=== PATIENT | female | born 1950 | race Hispanic/Latino ===

== ENCOUNTER 2018-01-14 19:25 | Observation (INO) | payer MEDICARE ==
[~2018-01-14] VITALS: Ht 157.5 cm; Wt 82.6 kg
[~2018-01-14 19:25] MED LIST: ASPIR 8181 MG PO; FAMOTIDINE20 MG PO; FLUTICASONE PRO16 GM IH; HUMALOG100 UNIT/1 SQ; HUMALOG100 UNITS/ SQ; HUMULIN N100 UNITS/ SQ; LISINOPRIL-HCT1 EAC6 PO; METOCLOPRAMIDE10 MG PO; PROVENTIL HFA6.7 GM INH; ULTRAM50 MG PO; VITAMIN D-32000 UNIT PO; Z.0.AMLODIPINE BESY1; Z.0.ANTIVERT25 MG PO; Z.0.ATENOLOL50 MG PO; Z.0.HUMALOG100 UNIT/ SQ; Z.0.KLOR-CON 1010 ME PO; Z.0.LANTUS100 UNIT/1; Z.0.NEURONTIN100 MG PO; Z.0.NITROSTAT0.4 MG SL; Z.0.PLAVIX75 MG PO; Z.0.ZOCOR10 MG PO; Z.2.METFORMIN HCL500
--- OUTSIDE RECORDS SUMMARY | 2018-01-14 19:28 | XMS REPORT | Summary of Care ---
Author Organization Unknown Address Unknown Phone Unavailable Encounter [facility](NEHA) [id number] Date(s): 12/28/13 - 12/29/13 [facility] [id number] Jayden Richardson [address] Discharge Disposition: Home Physician Attending: Gustabo Meo MD Physician Admitting: Gustabo Moe MD Reason for Visit CHEST PAIN Vital Signs 1 2 3 Most recent to oldest [Reference Range]: 157.48 cm (12/29/13 12:30 AM) 160.02 cm (12/28/13 8:43 PM) Height 79.545 kg (12/29/13 12:30 AM) Current Weight 98.8 DegF (12/28/13 8:43 PM) Temperature Oral [96.4-99.1 DegF] 145 mmHg *HI* (12/29/13 11:18 AM) 123 mmHg (12/29/13 10:39 AM) 132 mmHg (12/29/13 8:39 AM) Systolic Blood Pressure [90-140 mmHg] 59 mmHg *LOW* (12/29/13 11:18 AM) 49 mmHg *LOW* (12/29/13 10:39 AM) 50 mmHg *LOW* (12/29/13 8:39 AM) Diastolic Blood Pressure [60-90 mmHg] 16 BRMIN (12/29/13 11:18 AM) 17 BRMIN (12/29/13 10:39 AM) 15 BRMIN (12/29/13 8:39 AM) Respiratory Rate [14-20 BRMIN] 60 bpm (12/29/13 6:03 AM) 61 bpm (12/29/13 3:00 AM) 60 bpm (12/29/13 12:35 AM) Peripheral Pulse Rate [60-100 bpm] 79.545 kg (12/28/13 8:43 PM) Weight 31.06 m2 (12/28/13 8:43 PM) Body Mass Index Problem List No data available for this section Allergies, Adverse Reactions, Alerts Substance Reaction Severity Status NKDA Active Medications aspirin 324 mg, 4 tab, Route: PO, Drug form: CHEWTAB, ONCE, Dosing Weight 79.545, kg, Pr iority: STAT, Start date: 12/28/13 20:50:00, Stop date: 12/28/13 20:50:00 Notes: Take with food. Start Date: 12/28/13 Stop Date: 12/28/13 Status: Completed aspirin 81 mg tablet, enteric coated 81 mg=1 tab, PO, Daily Start Date: 12/28/13 Status: Ordered aspirin 81 mg tablet, enteric coated 81 mg, 1 tab, Route: PO, Drug form: ECTAB, Daily, Dosing Weight 79.545, kg, Star t date: 12/29/13 9:00:00, Duration: 30 day, Stop date: 01/27/14 9:00:00 Notes: Do not crush or chew.(Same As: Ecotrin) Start Date: 12/29/13 Stop Date: 12/29/13 Status: Discontinued enoxaparin 40 mg, Route: SUB-Q, Drug form: INJ, [id number], Dosing Weight 79.545, kg, Start d ate: 12/29/13 12:00:00, Duration: 30 day, Stop date: 01/27/14 12:00:00 Start Date: 12/29/13 Stop Date: 12/29/13 Status: Discontinued Humalog Kwik Pen 100 units/mL subcutaneous injection 8 unit, SUB-Q, Breakfast Start Date: 12/28/13 Status: Ordered Humalog Kwik Pen 100 units/mL subcutaneous injection 15 unit, SUB-Q, Dinner Start Date: 12/28/13 Status: Ordered Humalog Kwik Pen 100 units/mL subcutaneous injection 10 unit, SUB-Q, Lunch Start Date: 12/28/13 Status: Ordered hydrochlorothiazide-lisinopril 25 mg-20 mg oral tablet 1 tab, PO, Daily Start Date: 12/28/13 Status: Ordered isosorbide mononitrate 30 mg oral tablet, extended release 30 mg=1 tab, PO, QAM Start Date: 12/28/13 Status: Ordered Klor-Con M10 oral tablet, extended release 10 mEq=1 tab, PO, BID Start Date: 12/28/13 Status: Ordered nitroglycerin 2% ointment 0.5 inch, Route: TOP, Drug Form: OINT, Dosing Weight 79.545, kg, TID, Start date : 12/29/13 6:00:00, Duration: 30 day, Stop date: 01/27/14 18:00:00 Notes: 1 gram is approximately 1 inch of nitroglycerin ointment (20 mg NTG pe r gram) (Same as:Nitro-Bid) Start Date: 12/29/13 Stop Date: 12/29/13 Status: Discontinued nitroglycerin 2% ointment 1 inch, Route: TOP, Drug Form: OINT, Dosing Weight 79.545, kg, ONCE, STAT, Start date: 12/28/13 20:50:00, Stop date: 12/28/13 20:50:00 Notes: 1 gram is approximately 1 inch of nitroglycerin ointment (20 mg NTG pe r gram) (Same as:Nitro-Bid) Start Date: 12/28/13 Stop Date: 12/28/13 Status: Completed Saline Flush 0.9% 10 ml, Route: IVP, Drug Form: INJ, Dosing Weight 79.545, kg, Q12H, Start date: 9:00:00, Duration: 30 day, Stop date: 01/27/14 21:00:00 Notes: (Same as: BD Posiflush) Start Date: 12/29/13 Stop Date: 12/29/13 Status: Discontinued Saline Flush 0.9% 10 ml, Route: IVP, Drug Form: INJ, Dosing Weight 79.545, kg, PRN, PRN Line Flush , Start date: 12/29/13 0:14:00, Duration: 30 day, Stop date: 01/27/14 23:13:00 Notes: (Same as: BD Posiflush) Start Date: 12/29/13 Stop Date: 12/29/13 Status: Discontinued Saline Flush 0.9% 10 mL, Route: IVP, Drug Form: INJ, Dosing Weight 79.545, kg, PRN, PRN Line Flush , Start date: 12/28/13 20:50:00, Duration: 30 day, Stop date: 01/27/14 19:49:00 Notes: Same as: BD Posiflush Sterile Start Date: 12/28/13 Stop Date: 12/29/13 Status: Discontinued SymlinPen 60 subcutaneous solution 60 microgram, SUB-Q, BID-Before Meals, before lunch and dinner Special Instructions: before lunch and dinner Start Date: 12/28/13 Status: Ordered Vitamin D3 2000 intl units oral capsule 2,000 IntlUnit=1 cap, PO, Daily Start Date: 12/28/13 Status: Ordered Results ELECTROLYTES 1 2 3 Most recent to oldest [Reference Range]: 140 mEq/L (12/28/13 9:20 PM) Sodium Lvl [135-145 mEq/L] 3.7 mEq/L (12/28/13 9:20 PM) Potassium Lvl [3.5-5.1 mEq/L] 107 mEq/L (12/28/13 9:20 PM) Chloride Lvl [95-109 mEq/L] 23 mEq/L *LOW* (12/28/13 9:20 PM) CO2 [24-32 mEq/L] 13.7 mEq/L (12/28/13 9:20 PM) AGAP [10.0-20.0 mEq/L] CHEM PANEL 1 2 3 Most recent to oldest [Reference Range]: 1.2 mg/dL (12/28/13 9:20 PM) Creatinine Lvl [0.5-1.4 mg/dL] 48 mL/min/1.73m2 1 *NA* (12/28/13 9:20 PM) eGFR 21 mg/dL (12/28/13 9:20 PM) BUN [7-22 mg/dL] 18 (12/28/13 9:20 PM) B/C Ratio [6-25] 186 mg/dL 2 *HI* (12/28/13 9:20 PM) Glucose Lvl [70-99 mg/dL] 6.8 g/dL (12/28/13 9:20 PM) Total Protein [6.4-8.4 g/dL] 3.3 g/dL *LOW* (12/28/13 9:20 PM) Albumin Lvl [3.5-5.0 g/dL] 3.5 g/dL (12/28/13 9:20 PM) Globulin [2.0-4.0 g/dL] 0.9 (12/28/13 9:20 PM) A/G Ratio [0.7-1.6] 8.4 mg/dL *LOW* (12/28/13 9:20 PM) Calcium Lvl [8.5-10.5 mg/dL] 20 unit/L (12/28/13 9:20 PM) ALT [0-65 unit/L] 14 unit/L (12/28/13 9:20 PM) AST [0-37 unit/L] 56 unit/L (12/28/13 9:20 PM) Alk Phos [39-136 unit/L] 0.2 mg/dL (12/28/13 9:20 PM) Bili Total [0.2-1.3 mg/dL] 1Result Comment: The eGFR is calculated using the CKD-EPI formula. In most young, healthy individuals the eGFR will be >90 mL/min/1.73m2. The eGFR declines with age. An eGFR of 60-89 may be normal in some populations, particularly the elderly, for whom the CKD-EPI formula has not been extensively validated. Use of the eGFR is not recommended in the following populations: Individuals with unstable creatinine concentrations, including patients and those with serious co-morbid conditions. Patients with extremes in muscle mass or diet. The data above are obtained from the National Kidney Disease Education Program ( NKDEP) which additionally recommends that when the eGFR is used in patients with extremes of body mass index for purposes of drug dosing, the eGFR should be mul tiplied by the estimated BMI. 2Interpretive Data: Adult reference range values reflect the clinical guidelines of the [place] [employer]. CARDIAC ENZYMES 1 2 3 Most recent to oldest [Reference Range]: 65 unit/L (12/29/13 10:10 AM) 80 unit/L (12/29/13 3:36 AM) 81 unit/L (12/28/13 9:20 PM) Total CK [12-191 unit/L] 0.6 ng/mL (12/29/13 3:36 AM) 0.7 ng/mL (12/28/13 9:20 PM) CK MB [0.5-3.6 ng/mL] 0.8 (12/29/13 3:36 AM) 0.9 (12/28/13 9:20 PM) CK MB Index [0.0-2.5] <0.02 ng/mL (12/29/13 10:10 AM) <0.02 ng/mL (12/29/13 3:36 AM) <0.02 ng/mL (12/28/13 9:20 PM) Troponin-I [0.00-0.40 ng/mL] HEMATOLOGY 1 2 3 Most recent to oldest [Reference Range]: 8.3 K/CMM (12/28/13 9:20 PM) WBC [3.7-10.4 K/CMM] 3.63 M/CMM *LOW* (12/28/13 9:20 PM) RBC [4.20-5.40 M/CMM] 12.2 g/dL (12/28/13 9:20 PM) Hgb [12.0-16.0 g/dL] 36.0 % (12/28/13 9:20 PM) Hct [36.0-48.0 %] 99.2 fL *HI* (12/28/13 9:20 PM) MCV [80.0-98.0 fL] 33.7 pg *HI* (12/28/13 9:20 PM) MCH [27.0-31.0 pg] 34.0 g/dL (12/28/13 9:20 PM) MCHC [32.0-36.0 g/dL] 12.6 % (12/28/13 9:20 PM) RDW [11.5-14.5 %] 188 K/CMM (12/28/13 9:20 PM) Platelet [133-450 K/CMM] 7.8 fL (12/28/13 9:20 PM) MPV [7.4-10.4 fL] 58.7 % (12/28/13 9:20 PM) Segs [45.0-75.0 %] 28.6 % (12/28/13 9:20 PM) Lymphocytes [20.0-40.0 %] 8.0 % (12/28/13 9:20 PM) Monocytes [2.0-12.0 %] 2.8 % (12/28/13 9:20 PM) Eosinophils [0.0-4.0 %] 1.9 % *HI* (12/28/13 9:20 PM) Basophils [0.0-1.0 %] 4.9 K/CMM (12/28/13 9:20 PM) Segs-Bands # [1.5-8.1 K/CMM] 2.4 K/CMM (12/28/13 9:20 PM) Lymphocytes # [1.0-5.5 K/CMM] 0.7 K/CMM (12/28/13 9:20 PM) Monocytes # [0.0-0.8 K/CMM] 0.2 K/CMM (12/28/13 9:20 PM) Eosinophils # [0.0-0.5 K/CMM] 0.2 K/CMM (12/28/13 9:20 PM) Basophils # [0.0-0.2 K/CMM] 1+ *ABN* (12/28/13 9:20 PM) Macrocyte [None Seen] Clumped (12/28/13 9:20 PM) Plt Morph Medications Administered During Your Visit No data available for this section Immunizations No data available for this section Social History Social History Type Response Assessment and Plan Extracted from: Title: Clinical Document Author: Gustabo Moe MD Date: 12/29/13 Cardiology Note Gustabo Moe MD, PA SUBJECTIVE: REASON FOR HOSPITALIZATION: chest pain HISTORY OF PRESENT ILLNESS: Ms. Romero is a 63-year-old female who is known to me from previous hospitalizations and who presented through the emergency room complaining of sharp chest pain yesterday. It has now resolved. Overnight she had her cardiac enzymes checked and those were negative. At this time, she feels much better. Ms. Romero is known to have coronary artery disease. She had a heart catheterization back in 2004 and then repeated in 2007, and both procedures showed that she had a very complex long 99% narrowing in the distal RCA. In 2004, I recommended medical therapy, but then in 2007 due to recurrent pain, we attempted angioplasty but this was unsuccessful as the lesion was very calcified and complex, and although we successfully wired it, we could not pass a stent. She also was found to have 60% narrowing of the circumflex and 40% narrowing of the LAD and diffuse disease and diagonal. Her ejection fraction was 60%. Medical therapy was recommended based on the above findings and the inability to angioplasty the RCA. The patient did fairly well for the past 6 years from a CAD standpoint and did not require any further coronary interventions. She follows with [facility] and sees a automotive production worker in [place]. She had an endovascular procedure for an aortic or iliac aneurysm few months ago. PAST MEDICAL HISTORY: 1. Coronary artery disease as discussed above. 2. Insulin-dependent diabetes mellitus. 3. Hypercholesterolemia. 4. Hypertension. 5. PAD and stent for aneurysm in iliac or AAA? HOME MEDICATIONS: refer to reconciliation list ALLERGIES: No known drug allergies. SOCIAL HISTORY: The patient does not smoke or drink and does not use recreational drugs. FAMILY HISTORY: Negative for premature coronary disease. REVIEW OF SYSTEMS: Significant for dyspnea on exertion and exertional chest pain. She does take nitroglycerin every now and then, with partial relief. Mild arthralgias. No urologic complaints. No neurologic complaints and no psychiatric problems. Vitals and Temp: VitalsTmp(F)[id number] 12/29 08:39----[id number]--- 12/29 06:03----[id number]--- 12/29 03:00----[id number]--- 12/29 02:30 99--- 12/29 00:35----[id number]--- 24 Hr Tmax: 98.8F (37.11c) at 12/28 20:43Vital Signs are the last 5 in the past 48 hours. Scheduled Meds (4):aspirin (aspirin 81 mg tablet, enteric coated), enoxaparin, nitroglycerin (nitroglycerin 2% ointment), sodium chloride (Saline Flush 0.9%) Unscheduled Meds: None PRN Meds (2):sodium chloride (Saline Flush 0.9%), sodium chloride (Saline Flush 0.9%) One Time Meds (2):(not done) aspirin, (not done) nitroglycerin (nitroglycerin 2% ointment) Continuous Infusions: None Labs (Last four charted values) WBC 8.3(DEC 28) Hgb 12.2(DEC 28) Hct 36.0(DEC 28) Plt 188(DEC 28) Na 140(OCT ) K 3.7(OCT 19) CO2 L 23(DEC 28) Cl 107(DEC 28) Cr 1.2(DEC 28) BUN 21(DEC 28) Glucose Random H 186(DEC 28) Ca L 8.4(OCT ) Troponin <0.02(DEC 20)<0.02(DEC 20)<0.02(DEC 28) CK MB 0.6(DEC 29)0.7(DEC 19) Total CK 65(DEC 29)80(OCT 20)81(DEC 28) EXAM: VITAL SIGNS: Stable. She is in sinus rhythm. HEAD: Normocephalic, atraumatic. Pupils equal and round. NECK: Supple. No jugular venous distention. CHEST: Appears normal. CARDIAC: Regular rhythm. Negative S3. LUNGS: Clear bilaterally. ABDOMEN: Soft. Positive bowel sounds. EXTREMITIES: No clubbing, cyanosis or edema. Pulses palpable. SKIN: Normal. NEUROLOGIC: Nonfocal. PSYCH: Appropriate. ASSESSMENT: Nonrevascularizable CAD with occasional need for NTG. Atypicalo chest pain episode last night and negative cardiac enzymes *3. Benign ECG PLAN: dc home and f/u with your automotive production worker in 1-2 weeks
--- OUTSIDE RECORDS SUMMARY | 2018-01-14 19:28 | XMS REPORT | Summary of Care ---
Author Author [facility] Organization [facility] Address Unknown Phone Unavailable Encounter EDI Shepard(NEHA) [id number] Date(s): 03/20/16 - 03/20/16 [facility] [address] [place] [address]- Discharge Disposition: Home or Self Care Attending Physician: Breezy Hurst MD Admitting Physician: Breezy Hurst MD Vital Signs 1 2 3 Most recent to oldest [Reference Range]: 157.48 cm (03/20/16 2:21 PM) 157.48 cm (03/20/16 9:46 AM) Height 98.4 DegF (03/20/16 2:39 PM) 98.8 DegF (03/20/16 2:07 PM) 98.7 DegF (03/20/16 1:57 PM) Temperature Oral [96.4-99.1 DegF] 124/66 mmHg (03/20/16 2:39 PM) 119/48 mmHg (03/20/16 2:07 PM) 119/48 mmHg (03/20/16 1:57 PM) Blood Pressure [90-140/60-90 mmHg] 18 BRMIN (03/20/16 2:39 PM) 14 BRMIN (03/20/16 2:20 PM) 17 BRMIN (03/20/16 2:07 PM) Respiratory Rate [14-20 BRMIN] 60 bpm (03/20/16 2:39 PM) 71 bpm (03/20/16 2:07 PM) 58 bpm *LOW* (03/20/16 9:46 AM) Peripheral Pulse Rate [60-100 bpm] 81.818 kg (03/20/16 2:21 PM) 81.818 kg (03/20/16 9:46 AM) Weight 32.99 m2 (03/20/16 2:21 PM) 32.99 m2 (03/20/16 9:46 AM) Body Mass Index Problem List Condition Effective Dates Status Health Status Informant Angina(Confirmed) Resolved Diabetes(Confirmed) Resolved Hypertension(Confirm Resolved ed) Allergies, Adverse Reactions, Alerts Substance Reaction Severity Status NKDA Active Medications amLODIPine 10 mg, 2 tab, Route: PO, Drug form: TAB, Daily, Dosing Weight 81.818, kg, Start date: 03/21/16 9:00:00 POWER PRESS OPERATOR, Duration: 30 day, Stop date: 04/19/16 9:00:00 POWER PRESS OPERATOR Notes: (Same as: Norvasc) Start Date: 03/21/16 Stop Date: 03/20/16 Status: Canceled aspirin 325 mg, 1 tab, Route: PO, Drug form: ECTAB, Daily, Dosing Weight 81.818, kg, Sta rt date: 03/21/16 9:00:00 POWER PRESS OPERATOR, Duration: 30 day, Stop date: 04/19/16 9:00:00 POWER PRESS OPERATOR Notes: (Do Not Crush) Do not crush or chew. Start Date: 03/21/16 Stop Date: 03/20/16 Status: Canceled aspirin 324 mg, 4 tab, Route: PO, Drug form: CHEWTAB, ONCE, Dosing Weight 81.818, kg, Pr iority: STAT, Start date: 03/20/16 10:08:00 POWER PRESS OPERATOR, Stop date: 03/20/16 10:08:00 CS T Notes: Take with food. Start Date: 03/20/16 Stop Date: 03/20/16 Status: Completed aspirin 325 mg tablet 325 mg, Route: PO, Drug form: TAB, ONCE, Dosing Weight 81.818, kg, Start date: 0 03/20/16 13:49:00 POWER PRESS OPERATOR, Stop date: 03/20/16 13:49:00 POWER PRESS OPERATOR Start Date: 03/20/16 Stop Date: 03/20/16 Status: Completed atenolol 50 mg, 1 tab, Route: PO, Drug form: TAB, Daily, Dosing Weight 81.818, kg, Start date: 03/21/16 9:00:00 POWER PRESS OPERATOR, Duration: 30 day, Stop date: 04/19/16 9:00:00 POWER PRESS OPERATOR Notes: (Same As:Tenormin) Start Date: 03/21/16 Stop Date: 03/20/16 Status: Canceled hydrochlorothiazide 25 mg oral tablet 25 mg, 1 tab, Route: PO, Drug form: TAB, Daily, Start date: 03/21/16 9:00:00 POWER PRESS OPERATOR , Duration: 30 day, Stop date: 04/19/16 9:00:00 POWER PRESS OPERATOR Notes: (Same as: Hydrodiuril) With food. Start Date: 03/21/16 Stop Date: 03/20/16 Status: Canceled hydrochlorothiazide-lisinopril 25 mg-20 mg oral tablet 1 tab, Route: PO, Drug Form: TAB, Dosing Weight 81.818, kg, Daily, Start date: 0 03/21/16 9:00:00 POWER PRESS OPERATOR, Duration: 30 day, Stop date: 04/19/16 9:00:00 POWER PRESS OPERATOR Start Date: 03/21/16 Stop Date: 03/20/16 Status: Deleted insulin lispro 4 unit, Route: SUB-Q, Drug form: SOLN, Breakfast, Dosing Weight 81.818, kg, Star t date: 03/21/16 8:00:00 POWER PRESS OPERATOR, Duration: 30 day, Stop date: 04/19/16 8:00:00 POWER PRESS OPERATOR Start Date: 03/21/16 Stop Date: 03/20/16 Status: Deleted insulin lispro 6 unit, Route: SUB-Q, Drug form: SOLN, Lunch, Dosing Weight 81.818, kg, Start da te: 03/21/16 12:00:00 POWER PRESS OPERATOR, Duration: 30 day, Stop date: 04/19/16 12:00:00 POWER PRESS OPERATOR Start Date: 03/21/16 Stop Date: 03/20/16 Status: Deleted insulin lispro 8 unit, Route: SUB-Q, Drug form: SOLN, Dinner, Dosing Weight 81.818, kg, Start d ate: 03/20/16 17:00:00 POWER PRESS OPERATOR, Duration: 30 day, Stop date: 04/18/16 17:00:00 POWER PRESS OPERATOR Start Date: 03/20/16 Stop Date: 03/20/16 Status: Deleted isosorbide mononitrate 30 mg, 1 tab, Route: PO, Drug form: ERTAB, QAM, Dosing Weight 81.818, kg, Start date: 03/21/16 9:00:00 POWER PRESS OPERATOR, Duration: 30 day, Stop date: 04/19/16 9:00:00 POWER PRESS OPERATOR Notes: (Same as:Ziyad)"Do Not Crush" Take on empty stomach/ full glass of water . Do not crush Start Date: 03/21/16 Stop Date: 03/20/16 Status: Canceled Lantus 100 units/mL 50 units, SUB-Q, Daily, 0 Refill(s) Start Date: 03/20/16 Status: Ordered Lantus 100 units/mL 40 units, SUB-Q, Bedtime, 0 Refill(s) Start Date: 03/20/16 Status: Ordered Lantus 100 units/mL Route: SUB-Q, Drug form: SOLN, Bedtime, Dosing Weight 81.818, kg, Start date: 21:00:00 POWER PRESS OPERATOR, Duration: 30 day, Stop date: 04/18/16 21:00:00 POWER PRESS OPERATOR Start Date: 03/20/16 Stop Date: 03/20/16 Status: Deleted Lantus 100 units/mL Route: SUB-Q, Drug form: SOLN, Daily, Dosing Weight 81.818, kg, Start date: 03/12 9:00:00 POWER PRESS OPERATOR, Duration: 30 day, Stop date: 04/19/16 9:00:00 POWER PRESS OPERATOR Start Date: 03/21/16 Stop Date: 03/20/16 Status: Deleted Levemir FlexPen 50 unit, 0.5 mL, Route: SUB-Q, Drug form: INJ, QAM, Start date: 03/21/16 9:00:00 POWER PRESS OPERATOR, Duration: 30 day, Stop date: 04/19/16 9:00:00 POWER PRESS OPERATOR Notes: Same as LevemirDo not hold insulin without contacting prescriberWASTE: F/ P - Black; E - Municipal Trash Bin "single patient use only" Start Date: 03/21/16 Stop Date: 03/20/16 Status: Canceled Levemir FlexPen 40 unit, 0.4 mL, Route: SUB-Q, Drug form: INJ, Bedtime, Start date: 03/20/16 21: 00:00 POWER PRESS OPERATOR, Duration: 30 day, Stop date: 04/18/16 21:00:00 POWER PRESS OPERATOR Notes: Same as LevemirDo not hold insulin without contacting prescriberWASTE: F/ P - Black; E - Municipal Trash Bin "single patient use only" Start Date: 03/20/16 Stop Date: 03/20/16 Status: Canceled nitroglycerin 0.4 mg, 1 tab, Route: SL, Drug form: TAB, Q5Min, Dosing Weight 81.818, kg, PRN C hest Pain, Start date: 03/20/16 10:08:00 POWER PRESS OPERATOR, Duration: 3 doses or times, Stop d ate: Limited # of times Notes: (Same as:Nitroquick, Nitrostat)"Do Not Crush" Sublingual tablet Start Date: 03/20/16 Stop Date: 03/20/16 Status: Discontinued nitroglycerin SL Tab 0.4 mg, 1 tab, Route: SL, Drug form: TAB, Q5Min, Dosing Weight 81.818, kg, PRN C hest Pain, Start date: 03/20/16 13:49:00 POWER PRESS OPERATOR, Duration: 3 doses or times, Stop d ate: Limited # of times Notes: (Same as:Nitroquick, Nitrostat)"Do Not Crush" Sublingual tablet Start Date: 03/20/16 Stop Date: 03/20/16 Status: Discontinued NovoLOG FlexPen 6 unit, 0.06 mL, Route: SUB-Q, Drug form: SOLN, Lunch, Start date: 03/21/16 12:0 0:00 POWER PRESS OPERATOR, Duration: 30 day, Stop date: 04/19/16 12:00:00 POWER PRESS OPERATOR Notes: Roll in palms of hands gently; Do not shake vigorously. (Same as: NovoLO G)"single patient use only"WASTE: F/P - Black; E - Municipal Trash Bin Stable f or 28 days at room temperature.Expires in days from Date Start Date: 03/21/16 Stop Date: 03/20/16 Status: Canceled NovoLOG FlexPen 4 unit, 0.04 mL, Route: SUB-Q, Drug form: SOLN, Breakfast, Start date: 03/21/16 8:00:00 POWER PRESS OPERATOR, Duration: 30 day, Stop date: 04/19/16 8:00:00 POWER PRESS OPERATOR Notes: Roll in palms of hands gently; Do not shake vigorously. (Same as: Nori Summers)"single patient use only"WASTE: F/P - Black; E - Municipal Trash Bin Stable f or 28 days at room temperature.Expires in days from Date Start Date: 03/21/16 Stop Date: 03/20/16 Status: Canceled NovoLOG FlexPen 8 unit, 0.08 mL, Route: SUB-Q, Drug form: SOLN, Dinner, Start date: 03/20/16 17: 00:00 POWER PRESS OPERATOR, Duration: 30 day, Stop date: 04/18/16 17:00:00 POWER PRESS OPERATOR Notes: Roll in palms of hands gently; Do not shake vigorously. (Same as: Nori Summers)"single patient use only"WASTE: F/P - Black; E - Municipal Trash Bin Stable f or 28 days at room temperature.Expires in days from Date Start Date: 03/20/16 Stop Date: 03/20/16 Status: Discontinued ondansetron 4 mg, 2 mL, Route: IVP, Drug form: INJ, ONCE, Dosing Weight 81.818, kg, Priority : STAT, Start date: 03/20/16 10:08:00 POWER PRESS OPERATOR, Stop date: 03/20/16 10:08:00 POWER PRESS OPERATOR Notes: (Same as: Micky) MEDICATION WASTE Product Size: 4 mgProduct Was amy: ___ mg Start Date: 03/20/16 Stop Date: 03/20/16 Status: Completed Plavix 75 mg, 1 tab, Route: PO, Drug form: TAB, Daily, Dosing Weight 81.818, kg, Start date: 03/21/16 9:00:00 POWER PRESS OPERATOR, Duration: 30 day, Stop date: 04/19/16 9:00:00 POWER PRESS OPERATOR Notes: (Same As: Plavix) Start Date: 03/21/16 Stop Date: 03/20/16 Status: Canceled potassium chloride 10 mEq, 1 tab, Route: PO, Drug form: ERTAB, BID, Dosing Weight 81.818, kg, Start date: 03/20/16 17:00:00 POWER PRESS OPERATOR, Duration: 30 day, Stop date: 04/19/16 9:00:00 POWER PRESS OPERATOR Notes: (Same as: K-Dur 10)"Do Not Crush" With food and full glass of water Start Date: 03/20/16 Stop Date: 03/20/16 Status: Discontinued Prinivil 20 mg, 1 tab, Route: PO, Drug form: TAB, Daily, Start date: 03/21/16 9:00:00 POWER PRESS OPERATOR , Duration: 30 day, Stop date: 04/19/16 9:00:00 POWER PRESS OPERATOR Notes: (Same as: Prinivil, Zestril) Start Date: 03/21/16 Stop Date: 03/20/16 Status: Canceled Saline Flush 0.9% 10 mL, Route: IVP, Drug Form: INJ, Dosing Weight 81.818, kg, PRN, PRN Line Flush , Start date: 03/20/16 10:08:00 POWER PRESS OPERATOR, Duration: 30 day, Stop date: 04/19/16 10:07 :00 POWER PRESS OPERATOR Notes: (Same as: BD Posiflush) Start Date: 03/20/16 Stop Date: 03/20/16 Status: Discontinued Saline Flush 0.9% 10 ml, Route: IVP, Drug Form: INJ, Dosing Weight 81.818, kg, Q12H, Start date: 0 03/20/16 21:00:00 POWER PRESS OPERATOR, Duration: 30 day, Stop date: 04/19/16 9:00:00 POWER PRESS OPERATOR Notes: (Same as: BD Posiflush) Start Date: 03/20/16 Stop Date: 03/20/16 Status: Canceled Saline Flush 0.9% 10 ml, Route: IVP, Drug Form: INJ, Dosing Weight 81.818, kg, PRN, PRN Line Flush , Start date: 03/20/16 13:49:00 POWER PRESS OPERATOR, Duration: 30 day, Stop date: 04/19/16 13:48 :00 POWER PRESS OPERATOR Notes: (Same as: BD Posiflush) Start Date: 03/20/16 Stop Date: 03/20/16 Status: Discontinued simvastatin 10 mg, 1 tab, Route: PO, Drug form: TAB, Bedtime, Dosing Weight 81.818, kg, Star t date: 03/20/16 21:00:00 POWER PRESS OPERATOR, Duration: 30 day, Stop date: 04/18/16 21:00:00 CS T Notes: (Same as: Zocor) Start Date: 03/20/16 Stop Date: 03/20/16 Status: Canceled Vitamin D3 2,000 IntlUnit, 2 tab, Route: PO, Drug form: TAB, Daily, Dosing Weight 81.818, k g, Start date: 03/21/16 9:00:00 POWER PRESS OPERATOR, Duration: 30 day, Stop date: 04/19/16 9:00: 00 POWER PRESS OPERATOR Notes: Same as : Vitamin D3 Start Date: 03/21/16 Stop Date: 03/20/16 Status: Canceled Results ELECTROLYTES 1 2 3 Most recent to oldest [Reference Range]: 140 mEq/L (03/20/16 10:34 AM) Sodium Lvl [135-145 mEq/L] 3.6 mEq/L (03/20/16 10:34 AM) Potassium Lvl [3.5-5.1 mEq/L] 104 mEq/L (03/20/16 10:34 AM) Chloride Lvl [95-109 mEq/L] 26 mEq/L (03/20/16 10:34 AM) CO2 [24-32 mEq/L] 13.6 mEq/L (03/20/16 10:34 AM) AGAP [10.0-20.0 mEq/L] CHEM PANEL 1 2 3 Most recent to oldest [Reference Range]: 1.40 mg/dL (03/20/16 10:34 AM) Creatinine Lvl [0.50-1.40 mg/dL] 39 mL/min/1.73m2 1 *NA* (03/20/16 10:34 AM) eGFR 27 mg/dL *HI* (03/20/16 10:34 AM) BUN [7-22 mg/dL] 19 (03/20/16 10:34 AM) B/C Ratio [6-25] 107 mg/dL *HI* (03/20/16 10:34 AM) Glucose Lvl [70-99 mg/dL] 7.3 g/dL (03/20/16 10:34 AM) Total Protein [6.4-8.4 g/dL] 3.6 g/dL (03/20/16 10:34 AM) Albumin Lvl [3.5-5.0 g/dL] 3.7 g/dL (03/20/16 10:34 AM) Globulin [2.7-4.2 g/dL] 1.0 (03/20/16 10:34 AM) A/G Ratio [0.7-1.6] 9.3 mg/dL (03/20/16 10:34 AM) Calcium Lvl [8.5-10.5 mg/dL] 24 unit/L (03/20/16 10:34 AM) ALT [0-65 unit/L] 20 unit/L (03/20/16 10:34 AM) AST [0-37 unit/L] 59 unit/L (03/20/16 10:34 AM) Alk Phos [39-136 unit/L] 0.4 mg/dL (03/20/16 10:34 AM) Bili Total [0.2-1.3 mg/dL] 201 unit/L (03/20/16 10:34 AM) Lipase Lvl [73-393 unit/L] 1Result Comment: The eGFR is calculated using [...] be mul tiplied by the estimated BMI. CARDIAC ENZYMES 1 2 3 Most recent to oldest [Reference Range]: 89 unit/L (03/20/16 2:38 PM) 86 unit/L (03/20/16 1:44 PM) 109 unit/L (03/20/16 10:34 AM) Total CK [12-191 unit/L] 0.6 ng/mL (03/20/16 2:38 PM) 0.6 ng/mL (03/20/16 1:44 PM) 0.7 ng/mL (03/20/16 10:34 AM) CK MB [0.5-3.6 ng/mL] 0.7 (03/20/16 2:38 PM) 0.7 (03/20/16 1:44 PM) 0.6 (03/20/16 10:34 AM) CK MB Index [0.0-2.5] <0.02 ng/mL (03/20/16 2:38 PM) <0.02 ng/mL (03/20/16 10:34 AM) Troponin-I [0.00-0.40 ng/mL] HEMATOLOGY 1 2 3 Most recent to oldest [Reference Range]: 8.3 K/CMM (03/20/16 10:34 AM) WBC [3.7-10.4 K/CMM] 3.91 M/CMM *LOW* (03/20/16 10:34 AM) RBC [4.20-5.40 M/CMM] 13.1 g/dL (03/20/16 10:34 AM) Hgb [12.0-16.0 g/dL] 38.0 % (03/20/16 10:34 AM) Hct [36.0-48.0 %] 97.2 fL (03/20/16 10:34 AM) MCV [80.0-98.0 fL] 33.5 pg *HI* (03/20/16 10:34 AM) MCH [27.0-31.0 pg] 34.5 g/dL (03/20/16 10:34 AM) MCHC [32.0-36.0 g/dL] 12.7 % (03/20/16 10:34 AM) RDW [11.5-14.5 %] 248 K/CMM (03/20/16 10:34 AM) Platelet [133-450 K/CMM] 7.6 fL (03/20/16 10:34 AM) MPV [7.4-10.4 fL] 68.1 % (03/20/16 10:34 AM) Segs [45.0-75.0 %] 20.2 % (03/20/16 10:34 AM) Lymphocytes [20.0-40.0 %] 9.0 % (03/20/16 10:34 AM) Monocytes [2.0-12.0 %] 1.8 % (03/20/16 10:34 AM) Eosinophils [0.0-4.0 %] 0.9 % (03/20/16 10:34 AM) Basophils [0.0-1.0 %] 5.7 K/CMM (03/20/16 10:34 AM) Segs-Bands # [1.5-8.1 K/CMM] 1.7 K/CMM (03/20/16 10:34 AM) Lymphocytes # [1.0-5.5 K/CMM] 0.8 K/CMM (03/20/16 10:34 AM) Monocytes # [0.0-0.8 K/CMM] 0.2 K/CMM (03/20/16 10:34 AM) Eosinophils # [0.0-0.5 K/CMM] 0.1 K/CMM (03/20/16 10:34 AM) Basophils # [0.0-0.2 K/CMM] 12.9 seconds (03/20/16 10:34 AM) PT [12.0-14.7 seconds] 0.95 (03/20/16 10:34 AM) INR [0.85-1.17] 31.0 seconds (03/20/16 10:34 AM) PTT [22.9-35.8 seconds] Immunizations No data available for this section Procedures Procedure Date Related Diagnosis Body Site Stent placement Social History Social History Type Response Smoking Status Never smoker; Exposure to Tobacco Smoke None; Cigarette Smoking Last 365 Days No; Reg Smoking Cessation Counseling No Assessment and Plan No data available for this section
--- OUTSIDE RECORDS SUMMARY | 2018-01-14 19:28 | XMS REPORT | Summary of Care ---
Author Organization Unknown Address Unknown Phone Unavailable Encounter EDI Shepard(NEHA) [id number] Date(s): 06/01/14 - 06/01/14 [facility] [address] [place] [address]- [phone] Discharge Diagnosis: Paresthesia Discharge Disposition: Home Physician Attending: Neville Bearden MD Vital Signs 1 2 3 Most recent to oldest [Reference Range]: 157.48 cm (06/01/14 11:33 AM) Height 98.3 DegF (06/01/14 4:20 PM) 98.2 DegF (06/01/14 3:03 PM) 98.0 DegF (06/01/14 11:33 AM) Temperature Oral [96.4-99.1 DegF] 102/67 mmHg (06/01/14 4:20 PM) 132/60 mmHg (06/01/14 3:03 PM) 164/54 mmHg *HI* (06/01/14 1:25 PM) Blood Pressure [90-140/60-90 mmHg] 18 BRMIN (06/01/14 4:20 PM) 18 BRMIN (06/01/14 3:03 PM) 18 BRMIN (06/01/14 1:25 PM) Respiratory Rate [14-20 BRMIN] 65 bpm (06/01/14 1:25 PM) 92 bpm (06/01/14 11:33 AM) Peripheral Pulse Rate [60-100 bpm] 81.818 kg (06/01/14 11:33 AM) Weight 32.99 m2 (06/01/14 11:33 AM) Body Mass Index Problem List Condition Effective Dates Status Health Status Informant Angina(Confirmed) Resolved Diabetes(Confirmed) Resolved Hypertension(Confirm Resolved ed) Allergies, Adverse Reactions, Alerts Substance Reaction Severity Status NKDA Active Medications Saline Flush 0.9% 10 mL, Route: IVP, Drug Form: INJ, Dosing Weight 81.818, kg, PRN, PRN Line Flush , Start date: 06/01/14 13:26:00, Duration: 30 day, Stop date: 07/01/14 13:25:00 Notes: Same as: BD Posiflush Sterile Start Date: 06/01/14 Stop Date: 06/01/14 Status: Discontinued Sodium Chloride 0.9% (Bolus) IV 500 mL, 500 ml/hr, Infuse Over: 1 hr, Route: IV, 500, Drug form: INJ, ONCE, Prio rity: STAT, Dosing Weight 81.818 kg, Start date: 06/01/14 14:50:00, Duration: 1 doses or times, Stop date: 06/01/14 14:50:00 Start Date: 06/01/14 Stop Date: 06/01/14 Status: Completed Results ELECTROLYTES Most recent to 1 oldest [Reference Range]: Sodium Lvl [135-145 138 mEq/L mEq/L] (06/01/14 1:51 PM) Potassium Lvl 4.3 mEq/L [3.5-5.1 mEq/L] (06/01/14 1:51 PM) Chloride Lvl [95-109 103 mEq/L mEq/L] (06/01/14 1:51 PM) CO2 [24-32 mEq/L] 28 mEq/L (06/01/14 1:51 PM) AGAP [10.0-20.0 11.3 mEq/L mEq/L] (06/01/14 1:51 PM) CHEM PANEL Most recent to 1 oldest [Reference Range]: Creatinine Lvl 1.5 mg/dL [0.5-1.4 mg/dL] *HI* (06/01/14 1:51 PM) eGFR 36 mL/min/1.73m2 1 *NA* (06/01/14 1:51 PM) BUN [7-22 mg/dL] 29 mg/dL *HI* (06/01/14 1:51 PM) Glucose Lvl [70-99 213 mg/dL 2 mg/dL] *HI* (06/01/14 1:51 PM) Calcium Lvl 9.4 mg/dL [8.5-10.5 mg/dL] (06/01/14 1:51 PM) 1Result Comment: The eGFR is calculated using [...] values reflect the clinical guidelines of the [place] [employer]. CARDIAC ENZYMES Most recent to 1 oldest [Reference Range]: Total CK [12-191 144 unit/L unit/L] (06/01/14 1:51 PM) CK MB [0.5-3.6 0.6 ng/mL ng/mL] (06/01/14 1:51 PM) CK MB Index 0.4 [0.0-2.5] (06/01/14 1:51 PM) Troponin-I <0.02 ng/mL [0.00-0.40 ng/mL] (06/01/14 1:51 PM) URINE AND STOOL Most recent to 1 oldest [Reference Range]: UA Turbidity [Clear] Clear (06/01/14 1:46 PM) UA Color Ltyellow *NA* (06/01/14 1:46 PM) UA pH [5.0-8.0] 5.0 (06/01/14 1:46 PM) UA Spec Grav 1.013 [<=1.030] (06/01/14 1:46 PM) UA Glucose [Negative Negative mg/dL mg/dL] *NA* (06/01/14 1:46 PM) UA Blood [Negative] Negative (06/01/14 1:46 PM) UA Ketones [Negative Negative mg/dL mg/dL] *NA* (06/01/14 1:46 PM) UA Protein [Negative Negative mg/dL mg/dL] (06/01/14 1:46 PM) UA Urobilinogen <=1.0 mg/dL [0.1-1.0 mg/dL] *NA* (06/01/14 1:46 PM) UA Bili [Negative] Negative *NA* (06/01/14 1:46 PM) UA Leuk Est Small [Negative] *ABN* (06/01/14 1:46 PM) UA Nitrite Negative [Negative] (06/01/14 1:46 PM) UA WBC [0-5 /HPF] 12 /HPF *HI* (06/01/14 1:46 PM) UA RBC [0-2 /HPF] 2 /HPF (06/01/14 1:46 PM) UA Sq Epi [Few /LPF] Occasional /LPF *NA* (06/01/14 1:46 PM) UA Hyal Cast [0-2 3 /LPF /LPF] *HI* (06/01/14 1:46 PM) HEMATOLOGY Most recent to 1 oldest [Reference Range]: WBC [3.7-10.4 K/CMM] 10.3 K/CMM (06/01/14 1:51 PM) RBC [4.20-5.40 3.87 M/CMM M/CMM] *LOW* (06/01/14 1:51 PM) Hgb [12.0-16.0 g/dL] 13.1 g/dL (06/01/14 1:51 PM) Hct [36.0-48.0 %] 39.1 % (06/01/14 1:51 PM) MCV [80.0-98.0 fL] 101.0 fL *HI* (06/01/14 1:51 PM) MCH [27.0-31.0 pg] 33.9 pg *HI* (06/01/14 1:51 PM) MCHC [32.0-36.0 33.6 g/dL g/dL] (06/01/14 1:51 PM) RDW [11.5-14.5 %] 13.4 % (06/01/14 1:51 PM) Platelet [133-450 243 K/CMM K/CMM] (06/01/14 1:51 PM) MPV [7.4-10.4 fL] 7.5 fL (06/01/14 1:51 PM) Segs [45.0-75.0 %] 76.8 % *HI* (06/01/14 1:51 PM) Lymphocytes 15.3 % [20.0-40.0 %] *LOW* (06/01/14 1:51 PM) Monocytes [2.0-12.0 6.7 % %] (06/01/14 1:51 PM) Eosinophils [0.0-4.0 0.5 % %] (06/01/14 1:51 PM) Basophils [0.0-1.0 0.7 % %] (06/01/14 1:51 PM) Segs-Bands # 7.9 K/CMM [1.5-8.1 K/CMM] (06/01/14 1:51 PM) Lymphocytes # 1.6 K/CMM [1.0-5.5 K/CMM] (06/01/14 1:51 PM) Monocytes # [0.0-0.8 0.7 K/CMM K/CMM] (06/01/14 1:51 PM) Eosinophils # 0.1 K/CMM [0.0-0.5 K/CMM] (06/01/14 1:51 PM) Basophils # [0.0-0.2 0.1 K/CMM K/CMM] (06/01/14 1:51 PM) Macrocyte [None 1+ Seen] *ABN* (06/01/14 1:51 PM) PT [12.0-14.7 13.2 seconds seconds] (06/01/14 1:51 PM) INR [0.85-1.17] 1.00 3 (06/01/14 1:51 PM) PTT [22.9-35.8 28.2 seconds 4 seconds] (06/01/14 1:51 PM) 3Interpretive Data: RECOMMENDED RANGES FOR PROTIME INR: 2.0-3.0 for most medical and surgical thromboembolic states. 2.5-3.5 for artificial heart valves and recurrent embolism. INR SHOULD BE USED ONLY FOR PATIENTS ON STABLE ANTICOAGULANT THERAPY. 4Interpretive Data: Heparin Therapeutic Range: 57 - 92 Seconds Immunizations No data available for this section Procedures No data available for this section Social History Social History Type Response Smoking Status Never smoker; Exposure to Tobacco Smoke None; Cigarette Smoking Last 365 Days No; Reg Smoking Cessation Counseling No Assessment and Plan No data available for this section
--- OUTSIDE RECORDS SUMMARY | 2018-01-14 19:28 | XMS REPORT | Continuity of Care Document ---
Author Author [facility] Interface Address Unknown Phone Unavailable Problems Problem Status Onset Date Classification Date Reported Comments Source CHEST PAIN Active 01/10/2017 [facility] ACUTE CHEST PAIN Active 01/10/2017 [facility] Discharge Diagnosis: Paresthesia 06/01/2014 06/04/2014 [facility] DIZZINESS Active 06/01/2014 [facility] CHEST PAINS Active 12/28/2013 [facility] Angina Resolved Problem 01/14/2017 [facility] Diabetes Resolved Problem 01/14/2017 [facility] Hypertension Resolved Problem 01/14/2017 [facility] CHEST PAIN, UNSPECIFIED Active [facility] Medications Medication Details Route Status Patient Instructions Ordering Provider Order Date Source insulin lispro 8 unit, 0.08 mL, Route: SUB-Q, Drug form: SOLN, Dinner, Dosing Weight 80.909, kg, Start date: 01/12/17 17:00:00 CDT, Duration: 30 day, Stop date: 02/10/17 17:00:00 CSTNotes: Roll in palms of hands gently; Do not shake `vigorously. (Same as: Humalog ) "Single Patient Use Only " WASTE: F/P - Black; E - Municipal Trash Bin Stable for 28 days at room temperature. Expires in days from Date No Longer Active 01/12/2017 [facility] insulin lispro 6 unit, 0.06 mL, Route: SUB-Q, Drug form: SOLN, Lunch, Dosing Weight 80.909, kg, Start date: 01/12/17 12:00:00 CDT, Duration: 30 day, Stop date: 02/10/17 12:00:00 CSTNotes: Roll in palms of hands gently; Do not shake `vigorously. (Same as: Humalog ) "Single Patient Use Only " WASTE: F/P - Black; E - [employer] Trash Bin Stable for 28 days at room temperature. Expires in days from Date No Longer Active 01/12/2017 [facility] Plavix 75 mg, 1 tab, Route: PO, Drug form: TAB, Daily, Dosing Weight 80.909, kg, Start date: 01/12/17 9:00:00 CDT, Duration: 30 day, Stop date: 02/10/17 9:00:00 CSTNotes: (Same As: Plavix) No Longer Active 01/12/2017 [facility] atenolol 50 mg, 1 tab, Route: PO, Drug form: TAB, Daily, Dosing Weight 80.909, kg, Start date: 01/12/17 9:00:00 CDT, Duration: 30 day, Stop date: 02/10/17 9:00:00 CSTNotes: (Same As:Tenormin) No Longer Active 01/12/2017 [facility] amLODIPine 10 mg, 2 tab, Route: PO, Drug form: TAB, Daily, Dosing Weight 80.909, kg, Start date: 01/12/17 9:00:00 CDT, Duration: 30 day, Stop date: 02/10/17 9:00:00 CSTNotes: (Same as: Norvasc) No Longer Active 01/12/2017 [facility] potassium chloride 10 mEq, 1 tab, Route: PO, Drug form: ERTAB, BID, Dosing Weight 80.909, kg, Start date: 01/12/17 9:00:00 CDT, Duration: 30 day, Stop date: 02/10/17 17:00:00 CSTNotes: (Same as: K-Dur 10) "Do Not Crush" With food and full glass of water No Longer Active 01/12/2017 [facility] isosorbide mononitrate 30 mg, 1 tab, Route: PO, Drug form: ERTAB, QAM, Dosing Weight 80.909, kg, Start date: 01/12/17 9:00:00 CDT, Duration: 30 day, Stop date: 02/10/17 9:00:00 CSTNotes: (Same as:Imdur) "Do Not Crush" Take on empty stomach/ full glass of water. Do not crush No Longer Active 01/12/2017 [facility] NovoLIN N Route: SUB-Q, Daily, Dosing Weight 80.909, kg, Start date: 01/12/17 9:00:00 CDT, Duration: 30 day, Stop date: 02/10/17 9:00:00 AIRPLANE PILOT No Longer Active 01/12/2017 [facility] Lantus 100 units/mL Route: SUB-Q, Drug form: SOLN, Daily, Dosing Weight 80.909, kg, Start date: 01/12/17 9:00:00 CDT, Duration: 30 day, Stop date: 02/10/17 9:00:00 AIRPLANE PILOT No Longer Active 01/12/2017 [facility] insulin lispro 4 unit, 0.04 mL, Route: SUB-Q, Drug form: SOLN, Breakfast, Dosing Weight 80.909, kg, Start date: 01/12/17 8:00:00 CDT, Duration: 30 day, Stop date: 02/10/17 8:00:00 CSTNotes: Roll in palms of hands g ently; Do not shake `vigorously. (Same as: Humalog ) "Single Patient Use Only " WASTE: F/P - Black; E - [email or web address] Trash Bin Stable for 28 days at room temperature. Expires in days from Date No Longer Active 01/12/2017 [facility] simvastatin 10 mg, 1 tab, Route: PO, Drug form: TAB, Bedtime, Dosing Weight 80.909, kg, Start date: 01/11/17 21:00:00 CDT, Duration: 30 day, Stop date: 02/09/17 21:00:00 CSTNotes: (Same as: Zocor) Inactive 01/12/2017 [facility] Lantus 100 units/mL Route: SUB-Q, Drug form: SOLN, Bedtime, Dosing Weight 80.909, kg, Start date: 01/11/17 21:00:00 CDT, Duration: 30 day, Stop date: 02/09/17 21:00:00 AIRPLANE PILOT Inactive 01/12/2017 [facility] aspirin 81 mg tablet, enteric coated 81 mg, 1 tab, Route: PO, Drug form: ECTAB, Daily, Dosing Weight 80.909, kg, Start date: 01/11/17 20:46:00 CDT, Duration: 30 day, Stop date: 02/10/17 9:00:00 CSTNotes: Do not crush or chew. (Same As: Ecotrin) Inactive 01/12/2017 [facility] NovoLIN N Route: SUB-Q, ONCE, Dosing Weight 80.909, kg, Start date: 01/11/17 20:33:00 CDT, Stop date: 01/11/17 20:33:00 CDT Inactive 01/12/2017 [facility] NovoLIN N See Instructions, SUB-Q BID, 0 Refill(s) Active 01/11/2017 [facility] ondansetron 4 mg, Route: IVP, ONCE, Dosing Weight 77.273, kg, Priority: STAT, Start date: 01/11/17 3:08:00 CDT, Stop date: 01/11/17 3:08:00 CDT Inactive 01/11/2017 [facility] Saline Flush 0.9% 10 mL, Route: IVP, Drug Form: INJ, Dosing Weight 77.273, kg, PRN, PRN Line Flush, Start date: 01/11/17 3:08:00 CDT, Duration: 30 day, Stop date: 02/10/17 2:07:00 CSTNotes: (Same as: BD Posiflush) Inactive 01/11/2017 [facility] Sodium Chloride 0.9% IV (Sodium Chloride 0.9% (Bolus) IV) 500 mL, Infuse Over: 1 hr, Route: IV, ONCE, Priority: STAT, Dosing Weight 77.273 kg, Start date: 01/11/17 3:08:00 CDT, Duration: 1 doses or times, Stop date: 01/11/17 3:08:00 CDT Inactive 01/11/2017 [facility] NovoLOG FlexPen 6 unit, 0.06 mL, Route: SUB-Q, Drug form: SOLN, Lunch, Start date: 03/21/16 12:00:00 AIRPLANE PILOT, Duration: 30 day, Stop date: 04/19/16 12:00:00 CSTNotes: Roll in palms of hands gently; Do not shake vigorou sly. (Same as: NovoLOG) "single patient use only" WASTE: F/P - Black; E - Municipal Trash Bin Stable for 28 days at room temperature. Expires in days from Date No Longer Active 03/21/2016 [facility] Insulin Lispro 6 unit, Route: SUB-Q, Drug form: SOLN, Lunch, Dosing Weight 81.818, kg, Start date: 03/21/16 12:00:00 AIRPLANE PILOT, Duration: 30 day, Stop date: 04/19/16 12:00:00 AIRPLANE PILOT No Longer Active 03/21/2016 [facility] Plavix 75 mg, 1 tab, Route: PO, Drug form: TAB, Daily, Dosing Weight 81.818, kg, Start date: 03/21/16 9:00:00 AIRPLANE PILOT, Duration: 30 day, Stop date: 04/19/16 9:00:00 CSTNotes: (Same As: Plavix) No Longer Active 03/21/2016 [facility] Vitamin D3 2,000 IntlUnit, 2 tab, Route: PO, Drug form: TAB, Daily, Dosing Weight 81.818, kg, Start date: 03/21/16 9:00:00 AIRPLANE PILOT, Duration: 30 day, Stop date: 04/19/16 9:00:00 CSTNotes: Same as : Vitamin D3 No Longer Active 03/21/2016 [facility] Atenolol 50 mg, 1 tab, Route: PO, Drug form: TAB, Daily, Dosing Weight 81.818, kg, Start date: 03/21/16 9:00:00 AIRPLANE PILOT, Duration: 30 day, Stop date: 04/19/16 9:00:00 CSTNotes: (Same As:Tenormin) No Longer Active 03/21/2016 [facility] Levemir FlexPen 50 unit, 0.5 mL, Route: SUB-Q, Drug form: INJ, QAM, Start date: 03/21/16 9:00:00 AIRPLANE PILOT, Duration: 30 day, Stop date: 04/19/16 9:00:00 CSTNotes: Same as Levemir Do not hold insulin without contacting prescriber WASTE: F/P - Black; E - Municipal Trash Bin "single patient use only" No Longer Active 03/21/2016 [facility] Aspirin 325 mg, 1 tab, Route: PO, Drug form: ECTAB, Daily, Dosing Weight 81.818, kg, Start date: 03/21/16 9:00:00 AIRPLANE PILOT, Duration: 30 day, Stop date: 04/19/16 9:00:00 CSTNotes: (Do Not Crush) Do not crush or chew. No Longer Active 03/21/2016 [facility] Amlodipine 10 mg, 2 tab, Route: PO, Drug form: TAB, Daily, Dosing Weight 81.818, kg, Start date: 03/21/16 9:00:00 AIRPLANE PILOT, Duration: 30 day, Stop date: 04/19/16 9:00:00 CSTNotes: (Same as: Norvasc) No Longer Active 03/21/2016 [facility] Prinivil 20 mg, 1 tab, Route: PO, Drug form: TAB, Daily, Start date: 03/21/16 9:00:00 AIRPLANE PILOT, Duration: 30 day, Stop date: 04/19/16 9:00:00 CSTNotes: (Same as: Prinivil, Zestril) No Longer Active 03/21/2016 [facility] Isosorbide 30 mg, 1 tab, Route: PO, Drug form: ERTAB, QAM, Dosing Weight 81.818, kg, Start date: 03/21/16 9:00:00 AIRPLANE PILOT, Duration: 30 day, Stop date: 04/19/16 9:00:00 CSTNotes: (Same as:Imdur) "Do Not Crush" Take on empty stomach/ full glass of water. Do not crush No Longer Active 03/21/2016 [facility] hydrochlorothiazide 25 mg oral tablet 25 mg, 1 tab, Route: PO, Drug form: TAB, Daily, Start date: 03/21/16 9:00:00 AIRPLANE PILOT, Duration: 30 day, Stop date: 04/19/16 9:00:00 CSTNotes: (Same as: Hydrodiuril) With food. No Longer Active 03/21/2016 [facility] Insulin Glargine 100 UNT/ML Injectable Solution [Lantus] Route: SUB-Q, Drug form: SOLN, Daily, Dosing Weight 81.818, kg, Start date: 03/21/16 9:00:00 AIRPLANE PILOT, Duration: 30 day, Stop date: 04/19/16 9:00:00 AIRPLANE PILOT No Longer Active 03/21/2016 [facility] Hydrochlorothiazide 25 MG / Lisinopril 20 MG Oral Tablet 1 tab, Route: PO, Drug Form: TAB, Dosing Weight 81.818, kg, Daily, Start date: 03/21/16 9:00:00 AIRPLANE PILOT, Duration: 30 day, Stop date: 04/19/16 9:00:00 AIRPLANE PILOT No Longer Active 03/21/2016 [facility] NovoLOG FlexPen 4 unit, 0.04 mL, Route: SUB-Q, Drug form: SOLN, Breakfast, Start date: 03/21/16 8:00:00 AIRPLANE PILOT, Duration: 30 day, Stop date: 04/19/16 8:00:00 CSTNotes: Roll in palms of hands gently; Do not shake vigor ously. (Same as: NovoLOG) "single patient use only" WASTE: F/P - Black; E - Municipal Trash Bin Stable for 28 days at room temperature. Expires in days from Date No Longer Active 03/21/2016 [facility] Insulin Lispro 4 unit, Route: SUB-Q, Drug form: SOLN, Breakfast, Dosing Weight 81.818, kg, Start date: 03/21/16 8:00:00 AIRPLANE PILOT, Duration: 30 day, Stop date: 04/19/16 8:00:00 AIRPLANE PILOT No Longer Active 03/21/2016 [facility] Levemir FlexPen 40 unit, 0.4 mL, Route: SUB-Q, Drug form: INJ, Bedtime, Start date: 03/20/16 21:00:00 AIRPLANE PILOT, Duration: 30 day, Stop date: 04/18/16 21:00:00 CSTNotes: Same as Levemir Do not hold insulin without contact ing prescriber WASTE: F/P - Black; E - Municipal Trash Bin "single patient use only" Inactive 03/21/2016 [facility] Simvastatin 10 mg, 1 tab, Route: PO, Drug form: TAB, Bedtime, Dosing Weight 81.818, kg, Start date: 03/20/16 21:00:00 AIRPLANE PILOT, Duration: 30 day, Stop date: 04/18/16 21:00:00 CSTNotes: (Same as: Zocor) Inactive 03/21/2016 [facility] Insulin Glargine 100 UNT/ML Injectable Solution [Lantus] Route: SUB-Q, Drug form: SOLN, Bedtime, Dosing Weight 81.818, kg, Start date: 03/20/16 21:00:00 AIRPLANE PILOT, Duration: 30 day, Stop date: 04/18/16 21:00:00 AIRPLANE PILOT Inactive 03/21/2016 [facility] Saline Flush 0.9% 10 ml, Route: IVP, Drug Form: INJ, Dosing Weight 81.818, kg, Q12H, Start date: 03/20/16 21:00:00 AIRPLANE PILOT, Duration: 30 day, Stop date: 04/19/16 9:00:00 CSTNotes: (Same as: BD Posiflush) Inactive 03/21/2016 [facility] potassium chloride 10 mEq, 1 tab, Route: PO, Drug form: ERTAB, BID, Dosing Weight 81.818, kg, Start date: 03/20/16 17:00:00 AIRPLANE PILOT, Duration: 30 day, Stop date: 04/19/16 9:00:00 CSTNotes: (Same as: K-Dur 10) "Do Not Crush" With food and full glass of water Inactive 03/20/2016 [facility] Insulin Lispro 8 unit, Route: SUB-Q, Drug form: SOLN, Dinner, Dosing Weight 81.818, kg, Start date: 03/20/16 17:00:00 AIRPLANE PILOT, Duration: 30 day, Stop date: 04/18/16 17:00:00 AIRPLANE PILOT Inactive 03/20/2016 [facility] NovoLOG FlexPen 8 unit, 0.08 mL, Route: SUB-Q, Drug form: SOLN, Dinner, Start date: 03/20/16 17:00:00 AIRPLANE PILOT, Duration: 30 day, Stop date: 04/18/16 17:00:00 CSTNotes: Roll in palms of hands gently; Do not shake vigoro usly. (Same as: NovoLOG) "single patient use only" WASTE: F/P - Black; E - Municipal Trash Bin Stable for 28 days at room temperature. Expires in days from Date Inactive 03/20/2016 [facility] Insulin Glargine 100 UNT/ML Injectable Solution [Lantus] 50 units, SUB-Q, Daily, 0 Refill(s) Active 03/20/2016 [facility] Saline Flush 0.9% 10 ml, Route: IVP, Drug Form: INJ, Dosing Weight 81.818, kg, PRN, PRN Line Flush, Start date: 03/20/16 13:49:00 AIRPLANE PILOT, Duration: 30 day, Stop date: 04/19/16 13:48:00 CSTNotes: (Same as: BD Posiflush) Inactive 03/20/2016 [facility] Nitroglycerin 0.4 mg, 1 tab, Route: SL, Drug form: TAB, Q5Min, Dosing Weight 81.818, kg, PRN Chest Pain, Start date: 03/20/16 13:49:00 AIRPLANE PILOT, Duration: 3 doses or times, Stop date: Limited # of timesNotes: (Same as: Nitroquick, Nitrostat) "Do Not Crush" Sublingual tablet Inactive 03/20/2016 [facility] Aspirin 325 MG Oral Tablet 325 mg, Route: PO, Drug form: TAB, ONCE, Dosing Weight 81.818, kg, Start date: 03/20/16 13:49:00 AIRPLANE PILOT, Stop date: 03/20/16 13:49:00 AIRPLANE PILOT Inactive 03/20/2016 [facility] Ondansetron 4 mg, 2 mL, Route: IVP, Drug form: INJ, ONCE, Dosing Weight 81.818, kg, Priority: STAT, Start date: 03/20/16 10:08:00 AIRPLANE PILOT, Stop date: 03/20/16 10:08:00 CSTNotes: (Same as: Micky) MEDICATION WASTE Product Size: 4 mg Product Wasted: ___ mg Inactive 03/20/2016 [facility] Nitroglycerin 0.4 mg, 1 tab, Route: SL, Drug form: TAB, Q5Min, Dosing Weight 81.818, kg, PRN Chest Pain, Start date: 03/20/16 10:08:00 AIRPLANE PILOT, Duration: 3 doses or times, Stop date: Limited # of timesNotes: (Same as: Nitroquick, Nitrostat) "Do Not Crush" Sublingual tablet Inactive 03/20/2016 [facility] Aspirin 324 mg, 4 tab, Route: PO, Drug form: CHEWTAB, ONCE, Dosing Weight 81.818, kg, Priority: STAT, Start date: 03/20/16 10:08:00 AIRPLANE PILOT, Stop date: 03/20/16 10:08:00 CSTNotes: Take with food. Inactive 03/20/2016 [facility] Saline Flush 0.9% 10 mL, Route: IVP, Drug Form: INJ, Dosing Weight 81.818, kg, PRN, PRN Line Flush, Start date: 03/20/16 10:08:00 AIRPLANE PILOT, Duration: 30 day, Stop date: 04/19/16 10:07:00 CSTNotes: (Same as: BD Posiflush) Inactive 03/20/2016 [facility] Sodium Chloride 0.154 MEQ/ML Injectable Solution 500 mL, 500 ml/hr, Infuse Over: 1 hr, Route: IV, 500, Drug form: INJ, ONCE, Priority: STAT, Dosing Weight 81.818 kg, Start date: 06/01/14 14:50:00, Duration: 1 doses or times, Stop date: 06/01/14 14:50:00 Inactive 06/01/2014 [facility] Saline Flush 0.9% 10 mL, Route: IVP, Drug Form: INJ, Dosing Weight 81.818, kg, PRN, PRN Line Flush, Start date: 06/01/14 13:26:00, Duration: 30 day, Stop date: 07/01/14 13:25:00Notes: Same as: BD Posiflush Sterile Inactive 06/01/2014 [facility] Enoxaparin 40 mg, Route: SUB-Q, Drug form: INJ, [id number], Dosing Weight 79.545, kg, Start date: 12/29/13 12:00:00, Duration: 30 day, Stop date: 01/27/14 12:00:00 Inactive 12/29/2013 [facility] Saline Flush 0.9% 10 ml, Route: IVP, Drug Form: INJ, Dosing Weight 79.545, kg, Q12H, Start date: 12/29/13 9:00:00, Duration: 30 day, Stop date: 01/27/14 21:00:00Notes: (Same as: BD Posiflush) Inactive 12/29/2013 [facility] Aspirin 81 MG Enteric Coated Tablet 81 mg, 1 tab, Route: PO, Drug form: ECTAB, Daily, Dosing Weight 79.545, kg, Start date: 12/29/13 9:00:00, Duration: 30 day, Stop date: 01/27/14 9:00:00Notes: Do not crush or chew. (Same As: Ecotrin) Inactive 12/29/2013 [facility] Nitroglycerin 0.02 MG/MG Topical Ointment 0.5 inch, Route: TOP, Drug Form: OINT, Dosing Weight 79.545, kg, TID, Start date: 12/29/13 6:00:00, Duration: 30 day, Stop date: 01/27/14 18:00:00Notes: 1 gram is approximately 1 inch of nitroglycerin ointment (20 mg NTG per gram) (Same as:Nitro-Bid) Inactive 12/29/2013 [facility] Saline Flush 0.9% 10 ml, Route: IVP, Drug Form: INJ, Dosing Weight 79.545, kg, PRN, PRN Line Flush, Start date: 12/29/13 0:14:00, Duration: 30 day, Stop date: 01/27/14 23:13:00Notes: (Same as: BD Posiflush) Inactive 12/29/2013 [facility] Potassium Chloride 10 MEQ Extended Release Tablet [Klor-Con] 10 mEq=1 tab, PO, BID Active 12/29/2013 [facility] Aspirin 81 MG Enteric Coated Tablet 81 mg=1 tab, PO, Daily Active 12/29/2013 [facility] isosorbide mononitrate 30 mg oral tablet, extended release 30 mg=1 tab, PO, QAM Active 12/29/2013 [facility] Vitamin D3 2000 intl units oral capsule 2,000 IntlUnit=1 cap, PO, Daily Active 12/29/2013 [facility] Hydrochlorothiazide 25 MG / Lisinopril 20 MG Oral Tablet 1 tab, PO, Daily Active 12/29/2013 [facility] 3 ML Insulin Lispro 100 UNT/ML Prefilled Syringe [Humalog] 15 unit, SUB-Q, Dinner Active 12/29/2013 [facility] 1.5 ML pramlintide acetate 1 MG/ML Prefilled Syringe [Symlin] 60 microgram, SUB-Q, BID-Before Meals, before lunch and dinnerSpecial Instructions: before lunch and dinner Active 12/29/2013 [facility] 3 ML Insulin Lispro 100 UNT/ML Prefilled Syringe [Humalog] 8 unit, SUB-Q, Breakfast Active 12/29/2013 [facility] Nitroglycerin 0.02 MG/MG Topical Ointment 1 inch, Route: TOP, Drug Form: OINT, Dosing Weight 79.545, kg, ONCE, STAT, Start date: 12/28/13 20:50:00, Stop date: 12/28/13 20:50:00Notes: 1 gram is approximately 1 inch of nitroglycerin ointment (20 mg NTG per gram) (Same as:Nitro-Bid) Inactive 12/29/2013 [facility] aspirin 324 mg, 4 tab, Route: PO, Drug form: CHEWTAB, ONCE, Dosing Weight 79.545, kg, Priority: STAT, Start date: 12/28/13 20:50:00, Stop date: 12/28/13 20:50:00Notes: Take with food. Inactive 12/29/2013 [facility] Saline Flush 0.9% 10 mL, Route: IVP, Drug Form: INJ, Dosing Weight 79.545, kg, PRN, PRN Line Flush, Start date: 12/28/13 20:50:00, Duration: 30 day, Stop date: 01/27/14 19:49:00Notes: Same as: BD Posiflush Sterile No Longer Active 12/29/2013 [facility] Allergies, Adverse Reactions, Alerts Substance Category Reaction Severity Reaction type Status Date Reported Comments Source Immunizations Immunization Date Given Site Status Last Updated Comments Source Results Order Name Results Value Reference Range Date Interpretation Comments Source CARDIAC ENZYMES CK MB Index 1.6 0.0 - 2.5 01/11/2017 [facility] CARDIAC ENZYMES CK MB 1.2 ng/mL 0.5 - 3.6 01/11/2017 [facility] CARDIAC ENZYMES Troponin-I null 0.00 - 0.40 01/11/2017 [facility] CARDIAC ENZYMES Total CK 76 unit/L 12 - 191 01/11/2017 [facility] CARDIAC ENZYMES CK MB Index 1.2 0.0 - 2.5 01/11/2017 [facility] CARDIAC ENZYMES CK MB 1.3 ng/mL 0.5 - 3.6 01/11/2017 [facility] CARDIAC ENZYMES Total CK 109 unit/L 12 - 191 01/11/2017 [facility] CARDIAC ENZYMES Troponin-I null 0.00 - 0.40 01/11/2017 [facility] Cardiac SPECT multi studies [place] Cardiac SPECT multi studies [place] [id number] nuclear gated myocardial perfusion scan performed as per protocol at the nuclear medicine lab at [facility]. Lexiscan injected 0.4 mg intravenously stress agent. Cardiolite injected 15 mCi for resting protocol and 30 mCi for stress protocol. Impression. Mild inferior and anterior wall ischemia noted. Left ventricular ejection fraction 55 to 60%. Abnormal nuclear stress test. 01/11/2017 - - Read by: Breezy Hurst MD Dictated Date/time: 01/11/17 18:30 Electronically Signed by: Breezy Hurst MD 01/11/17 18:32 FINAL REPORT [facility] CARDIAC ENZYMES CK MB 1.4 ng/mL 0.5 - 3.6 01/11/2017 [facility] CARDIAC ENZYMES Total CK 90 unit/L 12 - 191 01/11/2017 [facility] CARDIAC ENZYMES Troponin-I null 0.00 - 0.40 01/11/2017 [facility] CARDIAC ENZYMES CK MB Index 1.6 0.0 - 2.5 01/11/2017 [facility] CHEM PANEL Magnesium Lvl 2.0 mg/dL 1.8 - 2.4 01/11/2017 [facility] CHEM PANEL Total Protein 7.7 g/dL 6.4 - 8.4 01/11/2017 [facility] CHEM PANEL ALT 29 unit/L 0 - 65 01/11/2017 [facility] CHEM PANEL AST 13 unit/L 0 - 37 01/11/2017 [facility] CHEM PANEL Alk Phos 92 unit/L 39 - 136 01/11/2017 [facility] CHEM PANEL Bili Total 0.6 mg/dL 0.2 - 1.3 01/11/2017 [facility] CHEM PANEL AGAP 10.9 meq/L 10.0 - 20.0 01/11/2017 [facility] CHEM PANEL B/C Ratio 24 6 - 25 01/11/2017 [facility] CHEM PANEL Globulin 3.8 g/dL 2.7 - 4.2 01/11/2017 [facility] CHEM PANEL A/G Ratio 1.0 0.7 - 1.6 01/11/2017 [facility] CHEM PANEL Sodium Lvl 136 meq/L 135 - 145 01/11/2017 [facility] CHEM PANEL Calcium Lvl 9.2 mg/dL 8.5 - 10.5 01/11/2017 [facility] CHEM PANEL Potassium Lvl 3.9 meq/L 3.5 - 5.1 01/11/2017 [facility] CHEM PANEL Chloride Lvl 102 meq/L 95 - 109 01/11/2017 [facility] CHEM PANEL Albumin Lvl 3.9 g/dL 3.5 - 5.0 01/11/2017 [facility] CHEM PANEL CO2 27 meq/L 24 - 32 01/11/2017 [facility] CHEM PANEL eGFR 33 mL/min/1.73m2 01/11/2017 Result Comment: The eGFR is calculated using the [...] from the National Kid[employer] Disease Education Program (NKDEP) which additionally recommends that when the eGFR is used in patients with extremes of body mass index for purposes of drug dosing, the eGFR should be multiplied by the estimated BMI. [facility] CHEM PANEL Glucose Lvl 328 mg/dL 70 - 99 01/11/2017 [facility] CHEM PANEL Creatinine Lvl 1.60 mg/dL 0.50 - 1.40 01/11/2017 [facility] CHEM PANEL BUN 39 mg/dL 7 - 22 01/11/2017 [facility] CHEM PANEL Lipase Lvl 222 unit/L 73 - 393 01/11/2017 [facility] PTT 28.0 s 22.9 - 35.8 01/11/2017 [facility] HEMATOLOGY INR 1.04 0.85 - 1.17 01/11/2017 [facility] HEMATOLOGY PT 13.6 s 12.0 - 14.7 01/11/2017 [facility] Platelet 243 K/CMM 133 - 450 01/11/2017 [facility] WBC 10.7 K/CMM 3.7 - 10.4 01/11/2017 [facility] RBC 3.71 M/CMM 4.20 - 5.40 01/11/2017 [facility] Hgb 12.4 g/dL 12.0 - 16.0 01/11/2017 [facility] Hct 36.5 % 36.0 - 48.0 01/11/2017 [facility] HEMATOLOGY MPV 7.5 fL 7.4 - 10.4 01/11/2017 [facility] MCHC 33.9 g/dL 32.0 - 36.0 01/11/2017 [facility] HEMATOLOGY RDW 13.0 % 11.5 - 14.5 01/11/2017 [facility] HEMATOLOGY MCV 98.4 fL 80.0 - 98.0 01/11/2017 [facility] MCH 33.4 pg 27.0 - 31.0 01/11/2017 [facility] HEMATOLOGY Lymphocytes 15.5 % 20.0 - 40.0 01/11/2017 [facility] HEMATOLOGY Monocytes 6.4 % 2.0 - 12.0 01/11/2017 [facility] HEMATOLOGY Segs 77.0 % 45.0 - 75.0 01/11/2017 [facility] HEMATOLOGY Basophils # 0.1 K/CMM 0.0 - 0.2 01/11/2017 [facility] HEMATOLOGY Eosinophils 0.4 % 0.0 - 4.0 01/11/2017 [facility] Segs-Bands # 8.2 K/CMM 1.5 - 8.1 01/11/2017 [facility] Lymphocytes # 1.7 K/CMM 1.0 - 5.5 01/11/2017 [facility] Basophils 0.7 % 0.0 - 1.0 01/11/2017 [facility] [facility] # 0.7 K/CMM 0.0 - 0.8 01/11/2017 [facility] Chest 1view DX Chest 1view DX EXAM: Chest 1view DX DATE: 01/11/2017 3:08 AM CDT INDICATION: - chest pain COMPARISON: 03/20/2016. IMPRESSION: Stable cardiac silhouette and mediastinum. Atherosclerotic thoracic aorta. No focal consolidation, significant pleural effusion or pneumothorax. SL: [id number] 01/11/2017 - - Read by: Maynor Castellanos MD Dictated Date/time: 01/11/17 03:30 Electronically Signed by: Maynor Castellanos MD 01/11/17 03:31 FINAL REPORT [facility] CARDIAC ENZYMES Troponin-I null 0.00 - 0.40 03/20/2016 [facility] CARDIAC ENZYMES Total CK 89 unit/L 12 - 191 03/20/2016 [facility] CARDIAC ENZYMES CK MB Index 0.7 0.0 - 2.5 03/20/2016 [facility] CARDIAC ENZYMES CK MB 0.6 ng/mL 0.5 - 3.6 03/20/2016 [facility] CARDIAC ENZYMES Total CK 86 unit/L 12 - 191 03/20/2016 [facility] CARDIAC ENZYMES CK MB Index 0.7 0.0 - 2.5 03/20/2016 [facility] CARDIAC ENZYMES CK MB 0.6 ng/mL 0.5 - 3.6 03/20/2016 [facility] CARDIAC ENZYMES CK MB Index 0.6 0.0 - 2.5 03/20/2016 [facility] CARDIAC ENZYMES Total CK 109 unit/L 12 - 191 03/20/2016 [facility] CARDIAC ENZYMES Troponin-I null 0.00 - 0.40 03/20/2016 [facility] CARDIAC ENZYMES CK MB 0.7 ng/mL 0.5 - 3.6 03/20/2016 [facility] CHEM PANEL Lipase Lvl 201 unit/L 73 - 393 03/20/2016 [facility] CHEM PANEL Glucose Lvl 107 mg/dL 70 - 99 03/20/2016 [facility] CHEM PANEL Bili Total 0.4 mg/dL 0.2 - 1.3 03/20/2016 [facility] CHEM PANEL ALT 24 unit/L 0 - 65 03/20/2016 [facility] CHEM PANEL AST 20 unit/L 0 - 37 03/20/2016 [facility] CHEM PANEL AGAP 13.6 meq/L 10.0 - 20.0 03/20/2016 [facility] CHEM PANEL Alk Phos 59 unit/L 39 - 136 03/20/2016 [facility] CHEM PANEL Calcium Lvl 9.3 mg/dL 8.5 - 10.5 03/20/2016 [facility] CHEM PANEL Total Protein 7.3 g/dL 6.4 - 8.4 03/20/2016 [facility] CHEM PANEL Chloride Lvl 104 meq/L 95 - 109 03/20/2016 [facility] CHEM PANEL CO2 26 meq/L 24 - 32 03/20/2016 [facility] CHEM PANEL Albumin Lvl 3.6 g/dL 3.5 - 5.0 03/20/2016 [facility] CHEM PANEL B/C Ratio 19 6 - 25 03/20/2016 [facility] CHEM PANEL Globulin 3.7 g/dL 2.7 - 4.2 03/20/2016 [facility] CHEM PANEL A/G Ratio 1.0 0.7 - 1.6 03/20/2016 [facility] CHEM PANEL eGFR 39 mL/min/1.73m2 03/20/2016 Result Comment: The eGFR is calculated using the [...] from the National Kidney Disease Education Program (NKDEP) which additionally recommends that when the eGFR is used in patients with extremes of body mass index for purposes of drug dosing, the eGFR should be multiplied by the estimated BMI. [facility] CHEM PANEL Sodium Lvl 140 meq/L 135 - 145 03/20/2016 [facility] CHEM PANEL Potassium Lvl 3.6 meq/L 3.5 - 5.1 03/20/2016 [facility] CHEM PANEL Creatinine Lvl 1.40 mg/dL 0.50 - 1.40 03/20/2016 [facility] CHEM PANEL BUN 27 mg/dL 7 - 22 03/20/2016 [facility] Lymphocytes # 1.7 K/CMM 1.0 - 5.5 03/20/2016 [facility] HEMATOLOGY Segs-Bands # 5.7 K/CMM 1.5 - 8.1 03/20/2016 [facility] HEMATOLOGY Eosinophils # 0.2 K/CMM 0.0 - 0.5 03/20/2016 [facility] HEMATOLOGY Monocytes # 0.8 K/CMM 0.0 - 0.8 03/20/2016 [facility] HEMATOLOGY Basophils # 0.1 K/CMM 0.0 - 0.2 03/20/2016 [facility] HEMATOLOGY Eosinophils 1.8 % 0.0 - 4.0 03/20/2016 [facility] HEMATOLOGY Basophils 0.9 % 0.0 - 1.0 03/20/2016 [facility] Lymphocytes 20.2 % 20.0 - 40.0 03/20/2016 [facility] HEMATOLOGY Monocytes 9.0 % 2.0 - 12.0 03/20/2016 [facility] HEMATOLOGY Segs 68.1 % 45.0 - 75.0 03/20/2016 [facility] PTT 31.0 s 22.9 - 35.8 03/20/2016 [facility] MCHC 34.5 g/dL 32.0 - 36.0 03/20/2016 [facility] RDW 12.7 % 11.5 - 14.5 03/20/2016 [facility] Hct 38.0 % 36.0 - 48.0 03/20/2016 [facility] MCV 97.2 fL 80.0 - 98.0 03/20/2016 [facility] MCH 33.5 pg 27.0 - 31.0 03/20/2016 [facility] Hgb 13.1 g/dL 12.0 - 16.0 03/20/2016 [facility] RBC 3.91 M/CMM 4.20 - 5.40 03/20/2016 [facility] WBC 8.3 K/CMM 3.7 - 10.4 03/20/2016 [facility] Platelet 248 K/CMM 133 - 450 03/20/2016 [facility] MPV 7.6 fL 7.4 - 10.4 03/20/2016 [facility] INR 0.95 0.85 - 1.17 03/20/2016 [facility] PT 12.9 s 12.0 - 14.7 03/20/2016 [facility] Chest 1view DX Chest 1view DX Portable chest: The cardiac silhouette and pulmonary vasculature are within normal limits. The lungs and pleural spaces are clear. There are no significant change compared to 06/01/2014.. IMPRESSION: No acute radiographic abnormality in the chest. [id number] 03/20/2016 - - Read by: Bran Osei MD Dictated Date/time: 03/20/16 10:21 Electronically Signed by: Bran Osei MD 03/20/16 10:21 FINAL REPORT [facility] CARDIAC ENZYMES CK MB Index 0.4 0.0 - 2.5 06/01/2014 [facility] CARDIAC ENZYMES Total CK 144 unit/L 12 - 191 06/01/2014 [facility] CARDIAC ENZYMES CK MB 0.6 ng/mL 0.5 - 3.6 06/01/2014 [facility] CARDIAC ENZYMES Troponin-I null 0.00 - 0.40 06/01/2014 [facility] CHEM PANEL eGFR 36 mL/min/1.73m2 06/01/2014 1Result Comment: The eGFR is calculated using [...] from the National Kidney Disease Education Program (NKDEP) which additionally recommends that when the eGFR is used in patients with extremes of body mass index for purposes of drug dosing, the eGFR should be multiplied by the estimated BMI. [facility] CHEM PANEL Chloride Lvl 103 meq/L 95 - 109 06/01/2014 [facility] CHEM PANEL CO2 28 meq/L 24 - 32 06/01/2014 [facility] CHEM PANEL Creatinine Lvl 1.5 mg/dL 0.5 - 1.4 06/01/2014 [facility] CHEM PANEL Calcium Lvl 9.4 mg/dL 8.5 - 10.5 06/01/2014 [facility] CHEM PANEL AGAP 11.3 meq/L 10.0 - 20.0 06/01/2014 [facility] CHEM PANEL Sodium Lvl 138 meq/L 135 - 145 06/01/2014 [facility] CHEM PANEL Potassium Lvl 4.3 meq/L 3.5 - 5.1 06/01/2014 [facility] CHEM PANEL BUN 29 mg/dL 7 - 22 06/01/2014 [facility] CHEM PANEL Glucose Lvl 213 mg/dL 70 - 99 06/01/2014 2Interpretive Data: Adult reference range values reflect the clinical guidelines of the [place] [employer]. [facility] HEMATOLOGY Macrocyte 1+ *ABN* (06/01/14 1:51 PM) None Seen 06/01/2014 [facility] HEMATOLOGY Eosinophils # 0.1 K/CMM 0.0 - 0.5 06/01/2014 [facility] HEMATOLOGY Monocytes # 0.7 K/CMM 0.0 - 0.8 06/01/2014 [facility] HEMATOLOGY Lymphocytes # 1.6 K/CMM 1.0 - 5.5 06/01/2014 [facility] HEMATOLOGY Segs-Bands # 7.9 K/CMM 1.5 - 8.1 06/01/2014 [facility] Eosinophils 0.5 % 0.0 - 4.0 06/01/2014 [facility] HEMATOLOGY Basophils 0.7 % 0.0 - 1.0 06/01/2014 [facility] Basophils # 0.1 K/CMM 0.0 - 0.2 06/01/2014 [facility] Monocytes 6.7 % 2.0 - 12.0 06/01/2014 [facility] Lymphocytes 15.3 % 20.0 - 40.0 06/01/2014 [facility] Segs 76.8 % 45.0 - 75.0 06/01/2014 [facility] PT 13.2 s 12.0 - 14.7 06/01/2014 [facility] INR 1.00 0.85 - 1.17 06/01/2014 3Interpretive Data: RECOMMENDED RANGES FOR PROTIME INR: 2.0-3.0 for most medical and surgical thromboembolic states. 2.5-3.5 for artificial heart valves and recurrent embolism. INR SHOULD BE USED ONLY FOR PATIENTS ON STABLE ANTICOAGULANT THERAPY. [facility] PTT 28.2 s 22.9 - 35.8 06/01/2014 4Interpretive Data: Heparin Therapeutic Range: 57 - 92 Seconds [facility] Hct 39.1 % 36.0 - 48.0 06/01/2014 [facility] MCV 101.0 fL 80.0 - 98.0 06/01/2014 [facility] Hgb 13.1 g/dL 12.0 - 16.0 06/01/2014 [facility] RBC 3.87 M/CMM 4.20 - 5.40 06/01/2014 [facility] WBC 10.3 K/CMM 3.7 - 10.4 06/01/2014 [facility] MPV 7.5 fL 7.4 - 10.4 06/01/2014 [facility] RDW 13.4 % 11.5 - 14.5 06/01/2014 [facility] Platelet 243 K/CMM 133 - 450 06/01/2014 [facility] MCH 33.9 pg 27.0 - 31.0 06/01/2014 [facility] MCHC 33.6 g/dL 32.0 - 36.0 06/01/2014 [facility] URINE AND STOOL UA Color Ltyellow 06/01/2014 [facility] URINE AND STOOL UA Urobilinogen <=1.0 mg/dL 0.1 - 1.0 06/01/2014 [facility] URINE AND STOOL UA Hyal Cast 3 /LPF 0 - 2 06/01/2014 [facility] URINE AND STOOL UA Glucose Negative mg/dL Negative mg/dL 06/01/2014 [facility] URINE AND STOOL UA Protein Negative mg/dL Negative mg/dL 06/01/2014 [facility] URINE AND STOOL UA RBC 2 /HPF 0 - 2 06/01/2014 [facility] URINE AND STOOL UA WBC 12 /HPF 0 - 5 06/01/2014 [facility] URINE AND STOOL UA Blood Negative (06/01/14 1:46 PM) Negative 06/01/2014 [facility] URINE AND STOOL UA Bili Negative *NA* (06/01/14 1:46 PM) Negative 06/01/2014 [facility] URINE AND STOOL UA Ketones Negative mg/dL Negative mg/dL 06/01/2014 [facility] URINE AND STOOL UA pH 5.0 5.0 - 8.0 06/01/2014 [facility] URINE AND STOOL UA Spec Grav 1.013 <=1.030 06/01/2014 [facility] URINE AND STOOL UA Turbidity Clear (06/01/14 1:46 PM) Clear 06/01/2014 [facility] URINE AND STOOL UA Sq Epi Occasional /LPF Few /LPF 06/01/2014 [facility] URINE AND STOOL UA Leuk Est Small *ABN* (06/01/14 1:46 PM) Negative 06/01/2014 [facility] URINE AND STOOL UA Nitrite Negative (06/01/14 1:46 PM) Negative 06/01/2014 [facility] Chest 1view DX Chest 1view DX CHEST RADIOGRAPH SINGLE VIEW INDICATION: Focal neurological deficit COMPARISON: Chest radiograph 12/28/2013 IMPRESSION: No acute intrathoracic abnormalities are visualized. SL: 16 06/01/2014 - - Read by: Italo Camacho MD Dictated Date/time: 06/01/14 14:00 Electronically Signed by: Italo Camacho MD 06/01/14 14:00 FINAL REPORT [facility] CARDIAC ENZYMES Troponin-I null 0.00 - 0.40 12/29/2013 [facility] CARDIAC ENZYMES Total CK 65 unit/L 12 - 191 12/29/2013 [facility] CARDIAC ENZYMES CK MB Index 0.8 0.0 - 2.5 12/29/2013 [facility] CARDIAC ENZYMES CK MB 0.6 ng/mL 0.5 - 3.6 12/29/2013 [facility] CARDIAC ENZYMES Total CK 80 unit/L 12 - 191 12/29/2013 [facility] CARDIAC ENZYMES Troponin-I null 0.00 - 0.40 12/29/2013 [facility] CARDIAC ENZYMES CK MB Index 0.9 0.0 - 2.5 12/29/2013 [facility] CARDIAC ENZYMES Troponin-I null 0.00 - 0.40 12/29/2013 [facility] CARDIAC ENZYMES CK MB 0.7 ng/mL 0.5 - 3.6 12/29/2013 [facility] CARDIAC ENZYMES Total CK 81 unit/L 12 - 191 12/29/2013 [facility] CHEM PANEL eGFR 48 mL/min/1.73m2 12/29/2013 1Result Comment: The eGFR is calculated using [...] from the National Kidney Disease Education Program (NKDEP) which additionally recommends that when the eGFR is used in patients with extremes of body mass index for purposes of drug dosing, the eGFR should be multiplied by the estimated BMI. [facility] CHEM PANEL Globulin 3.5 g/dL 2.0 - 4.0 12/29/2013 [facility] CHEM PANEL A/G Ratio 0.9 0.7 - 1.6 12/29/2013 [facility] CHEM PANEL AGAP 13.7 meq/L 10.0 - 20.0 12/29/2013 [facility] CHEM PANEL B/C Ratio 18 6 - 25 12/29/2013 [facility] CHEM PANEL Sodium Lvl 140 meq/L 135 - 145 12/29/2013 [facility] CHEM PANEL BUN 21 mg/dL 7 - 22 12/29/2013 [facility] CHEM PANEL Creatinine Lvl 1.2 mg/dL 0.5 - 1.4 12/29/2013 [facility] CHEM PANEL Glucose Lvl 186 mg/dL 70 - 99 12/29/2013 2Interpretive Data: Adult reference range values reflect the clinical guidelines of the [place] [employer]. [facility] CHEM PANEL Total Protein 6.8 g/dL 6.4 - 8.4 12/29/2013 [facility] CHEM PANEL CO2 23 meq/L 24 - 32 12/29/2013 [facility] CHEM PANEL Calcium Lvl 8.4 mg/dL 8.5 - 10.5 12/29/2013 [facility] CHEM PANEL Potassium Lvl 3.7 meq/L 3.5 - 5.1 12/29/2013 [facility] CHEM PANEL Chloride Lvl 107 meq/L 95 - 109 12/29/2013 [facility] CHEM PANEL Alk Phos 56 unit/L 39 - 136 12/29/2013 [facility] CHEM PANEL Bili Total 0.2 mg/dL 0.2 - 1.3 12/29/2013 [facility] CHEM PANEL ALT 20 unit/L 0 - 65 12/29/2013 [facility] CHEM PANEL AST 14 unit/L 0 - 37 12/29/2013 [facility] CHEM PANEL Albumin Lvl 3.3 g/dL 3.5 - 5.0 12/29/2013 [facility] HEMATOLOGY Basophils 1.9 % 0.0 - 1.0 12/29/2013 [facility] HEMATOLOGY Lymphocytes # 2.4 K/CMM 1.0 - 5.5 12/29/2013 [facility] HEMATOLOGY Eosinophils 2.8 % 0.0 - 4.0 12/29/2013 [facility] HEMATOLOGY Segs-Bands # 4.9 K/CMM 1.5 - 8.1 12/29/2013 [facility] HEMATOLOGY Monocytes # 0.7 K/CMM 0.0 - 0.8 12/29/2013 [facility] HEMATOLOGY Macrocyte 1+ *ABN* (12/28/13 9:20 PM) None Seen 12/29/2013 [facility] HEMATOLOGY Eosinophils # 0.2 K/CMM 0.0 - 0.5 12/29/2013 [facility] HEMATOLOGY Basophils # 0.2 K/CMM 0.0 - 0.2 12/29/2013 [facility] HEMATOLOGY Lymphocytes 28.6 % 20.0 - 40.0 12/29/2013 [facility] HEMATOLOGY Monocytes 8.0 % 2.0 - 12.0 12/29/2013 [facility] HEMATOLOGY Segs 58.7 % 45.0 - 75.0 12/29/2013 [facility] HEMATOLOGY Plt Morph Clumped (12/28/13 9:20 PM) 12/29/2013 [facility] HEMATOLOGY MCV 99.2 fL 80.0 - 98.0 12/29/2013 [facility] HEMATOLOGY MPV 7.8 fL 7.4 - 10.4 12/29/2013 [facility] HEMATOLOGY Hct 36.0 % 36.0 - 48.0 12/29/2013 [facility] HEMATOLOGY Hgb 12.2 g/dL 12.0 - 16.0 12/29/2013 [facility] HEMATOLOGY Platelet 188 K/CMM 133 - 450 12/29/2013 [facility] HEMATOLOGY RDW 12.6 % 11.5 - 14.5 12/29/2013 [facility] HEMATOLOGY MCHC 34.0 g/dL 32.0 - 36.0 12/29/2013 [facility] HEMATOLOGY MCH 33.7 pg 27.0 - 31.0 12/29/2013 [facility] HEMATOLOGY RBC 3.63 M/CMM 4.20 - 5.40 12/29/2013 [facility] HEMATOLOGY WBC 8.3 K/CMM 3.7 - 10.4 12/29/2013 [facility] Chest 1view Chest 1view NAME: HAWK HAGER : 1950 SEX: F Ordering Physician: Sunny Higgins Chest 1view : Dec 28, 2013 09:12:00 PM. CLINICAL INDICATION: Chest pain. Comparison Examination: 06/28/2009. FINDINGS: Cardiac and mediastinal structures are stable. No focal infiltrate identified within the lungs, no edema and no pneumothorax. Degenerative changes are seen about the thoracic spine. SL: 14 12/28/2013 - - Read by: Jerome Alcantar MD Dictated Date/time: 12/28/13 21:48 Electronically Signed by: Jerome Alcantar MD 12/28/13 21:49 FINAL REPORT [facility] Vital Signs Vital Sign Value Date Comments Source Temperature Oral (F) 98.2 F 01/12/2017 [facility] Respitory Rate 18 01/12/2017 [facility] Systolic (mm Hg) 136 01/12/2017 [facility] Diastolic (mm Hg) 71 01/12/2017 [facility] Heart Rate 72 01/12/2017 [facility] Respitory Rate 18 01/11/2017 [facility] Systolic (mm Hg) 127 01/11/2017 [facility] Diastolic (mm Hg) 73 01/11/2017 [facility] Heart Rate 75 01/11/2017 [facility] Temperature Oral (F) 98 F 01/11/2017 [facility] Temperature Oral (F) 98.2 F 01/11/2017 [facility] Heart Rate 61 01/11/2017 [facility] Systolic (mm Hg) 149 01/11/2017 [facility] Diastolic (mm Hg) 79 01/11/2017 [facility] Respitory Rate 18 01/11/2017 [facility] Weight 80.909 01/11/2017 [facility] Height 157.48 cm 01/11/2017 [facility] BMI Calculated 32.62 01/11/2017 [facility] Weight 77.273 01/11/2017 [facility] BMI Calculated 29.24 01/11/2017 [facility] Height 162.56 cm 01/11/2017 [facility] Temperature Oral (F) 98.4 F 03/20/2016 [facility] Heart Rate 60 03/20/2016 [facility] Systolic (mm Hg) 124 03/20/2016 [facility] Diastolic (mm Hg) 66 03/20/2016 [facility] Respitory Rate 18 03/20/2016 [facility] Height 157.48 cm 03/20/2016 [facility] BMI Calculated 32.99 03/20/2016 [facility] Weight 81.818 03/20/2016 [facility] Respitory Rate 14 03/20/2016 [facility] Temperature Oral (F) 98.8 F 03/20/2016 [facility] Systolic (mm Hg) 119 03/20/2016 [facility] Diastolic (mm Hg) 48 03/20/2016 [facility] Heart Rate 71 03/20/2016 [facility] Respitory Rate 17 03/20/2016 [facility] Systolic (mm Hg) 119 03/20/2016 [facility] Diastolic (mm Hg) 48 03/20/2016 [facility] Temperature Oral (F) 98.7 F 03/20/2016 [facility] BMI Calculated 32.99 03/20/2016 [facility] Height 157.48 cm 03/20/2016 [facility] Weight 81.818 03/20/2016 [facility] Heart Rate 58 03/20/2016 [facility] Systolic (mm Hg) 102 06/01/2014 [facility] Diastolic (mm Hg) 67 06/01/2014 [facility] Temperature Oral (F) 98.3 F 06/01/2014 [facility] Respitory Rate 18 06/01/2014 [facility] Temperature Oral (F) 98.2 F 06/01/2014 [facility] Systolic (mm Hg) 132 06/01/2014 [facility] Diastolic (mm Hg) 60 06/01/2014 [facility] Respitory Rate 18 06/01/2014 [facility] Heart Rate 65 06/01/2014 [facility] Systolic (mm Hg) 164 06/01/2014 [facility] Diastolic (mm Hg) 54 06/01/2014 [facility] Respitory Rate 18 06/01/2014 [facility] Weight 81.818 06/01/2014 [facility] Heart Rate 92 06/01/2014 [facility] BMI Calculated 32.99 06/01/2014 [facility] Height 157.48 cm 06/01/2014 [facility] Temperature Oral (F) 98.0 F 06/01/2014 [facility] Diastolic (mm Hg) 59 12/29/2013 [facility] Respitory Rate 16 12/29/2013 [facility] Systolic (mm Hg) 145 12/29/2013 [facility] Diastolic (mm Hg) 49 12/29/2013 [facility] Systolic (mm Hg) 123 12/29/2013 [facility] Respitory Rate 17 12/29/2013 [facility] Systolic (mm Hg) 132 12/29/2013 [facility] Respitory Rate 15 12/29/2013 [facility] Diastolic (mm Hg) 50 12/29/2013 [facility] Heart Rate 60 12/29/2013 [facility] Heart Rate 61 12/29/2013 [facility] Heart Rate 60 12/29/2013 [facility] Height 157.48 cm 12/29/2013 [facility] BMI Calculated 31.06 12/29/2013 [facility] Weight 79.545 12/29/2013 [facility] Height 160.02 cm 12/29/2013 [facility] Temperature Oral (F) 98.8 F 12/29/2013 [facility] Encounters Location Location Details Encounter Type Encounter Number Reason For Visit Attending Provider ADM Date DC Date Status Source [facility] OBS Observation Patient [id number] Gustabo Moe 12/29/2013 12/29/2013 [facility] [id number] Neville Ocampokamini 06/01/2014 06/01/2014 [facility] Observation [id number] Breezy Hurst 03/20/2016 03/20/2016 [facility] Observation [id number] Breezy Hurst 01/11/2017 01/12/2017 [facility] Procedures Procedure Code Date Perfomer Comments Source Stent placement [id number] [facility]
--- OUTSIDE RECORDS SUMMARY | 2018-01-14 19:29 | XMS REPORT | Summary of Care ---
Author Author [facility] Organization [facility] Address Unknown Phone Unavailable Encounter EDI Shepard(NEHA) [id number] Date(s): 01/10/17 - 01/11/17 [facility] [address] [place] [address]- [phone] Discharge Disposition: Home or Self Care Attending Physician: Breezy Hurst MD Admitting Physician: Breezy Hurst MD Vital Signs 1 2 3 Most recent to oldest [Reference Range]: 157.48 cm (01/11/17 6:02 AM) 162.56 cm (01/11/17 12:01 AM) Height 98.2 DegF (01/11/17 7:06 PM) 98 DegF (01/11/17 3:22 PM) 98.2 DegF (01/11/17 11:29 AM) Temperature Oral [96.4-99.1 DegF] 136/71 mmHg (01/11/17 7:06 PM) 127/73 mmHg (01/11/17 3:22 PM) 149/79 mmHg *HI* (01/11/17 11:29 AM) Blood Pressure [90-140/60-90 mmHg] 18 BRMIN (01/11/17 7:06 PM) 18 BRMIN (01/11/17 3:22 PM) 18 BRMIN (01/11/17 11:29 AM) Respiratory Rate [14-20 BRMIN] 72 bpm (01/11/17 7:06 PM) 75 bpm (01/11/17 3:22 PM) 61 bpm (01/11/17 11:29 AM) Peripheral Pulse Rate [60-100 bpm] 80.909 kg (01/11/17 6:02 AM) 77.273 kg (01/11/17 12:01 AM) Weight 32.62 m2 (01/11/17 6:02 AM) 29.24 m2 (01/11/17 12:01 AM) Body Mass Index Problem List Condition Effective Dates Status Health Status Informant Angina(Confirmed) Resolved Diabetes(Confirmed) Resolved Hypertension(Confirm Resolved ed) Allergies, Adverse Reactions, Alerts Substance Reaction Severity Status NKDA Active Medications amLODIPine 10 mg, 2 tab, Route: PO, Drug form: TAB, Daily, Dosing Weight 80.909, kg, Start date: 01/12/17 9:00:00 CDT, Duration: 30 day, Stop date: 02/10/17 9:00:00 LIGHT CLEANER Notes: (Same as: Norvasc) Start Date: 01/12/17 Stop Date: 01/11/17 Status: Canceled aspirin 81 mg tablet, enteric coated 81 mg, 1 tab, Route: PO, Drug form: ECTAB, Daily, Dosing Weight 80.909, kg, Star t date: 01/11/17 20:46:00 CDT, Duration: 30 day, Stop date: 02/10/17 9:00:00 LIGHT CLEANER Notes: Do not crush or chew.(Same As: Ecotrin) Start Date: 01/11/17 Stop Date: 01/11/17 Status: Discontinued atenolol 50 mg, 1 tab, Route: PO, Drug form: TAB, Daily, Dosing Weight 80.909, kg, Start date: 01/12/17 9:00:00 CDT, Duration: 30 day, Stop date: 02/10/17 9:00:00 LIGHT CLEANER Notes: (Same As:Tenormin) Start Date: 01/12/17 Stop Date: 01/11/17 Status: Canceled insulin lispro 4 unit, 0.04 mL, Route: SUB-Q, Drug form: SOLN, Breakfast, Dosing Weight 80.909, kg, Start date: 01/12/17 8:00:00 CDT, Duration: 30 day, Stop date: 02/10/17 8:0 0:00 LIGHT CLEANER Notes: Roll in palms of hands gently; Do not shake `vigorously. (Same as: Humluis og )"Single Patient Use Only "WASTE: F/P - Black; E - Municipal Trash Bin Stabl e for 28 days at room temperature.Expires in days from Date Start Date: 01/12/17 Stop Date: 01/11/17 Status: Canceled insulin lispro 6 unit, 0.06 mL, Route: SUB-Q, Drug form: SOLN, Lunch, Dosing Weight 80.909, kg, Start date: 01/12/17 12:00:00 CDT, Duration: 30 day, Stop date: 02/10/17 12:00: 00 LIGHT CLEANER Notes: Roll in palms of hands gently; Do not shake `vigorously. (Same as: Isra og )"Single Patient Use Only "WASTE: F/P - Black; E - Municipal Trash Bin Stabl e for 28 days at room temperature.Expires in days from Date Start Date: 01/12/17 Stop Date: 01/11/17 Status: Canceled insulin lispro 8 unit, 0.08 mL, Route: SUB-Q, Drug form: SOLN, Dinner, Dosing Weight 80.909, kg , Start date: 01/12/17 17:00:00 CDT, Duration: 30 day, Stop date: 02/10/17 17:00 :00 LIGHT CLEANER Notes: Roll in palms of hands gently; Do not shake `vigorously. (Same as: Isra og )"Single Patient Use Only "WASTE: F/P - Black; E - Municipal Trash Bin Stabl e for 28 days at room temperature.Expires in days from Date Start Date: 01/12/17 Stop Date: 01/11/17 Status: Canceled isosorbide mononitrate 30 mg, 1 tab, Route: PO, Drug form: ERTAB, QAM, Dosing Weight 80.909, kg, Start date: 01/12/17 9:00:00 CDT, Duration: 30 day, Stop date: 02/10/17 9:00:00 LIGHT CLEANER Notes: (Same as:Ziyad)"Do Not Crush" Take on empty stomach/ full glass of water . Do not crush Start Date: 01/12/17 Stop Date: 01/11/17 Status: Canceled Lantus 100 units/mL Route: SUB-Q, Drug form: SOLN, Bedtime, Dosing Weight 80.909, kg, Start date: 21:00:00 CDT, Duration: 30 day, Stop date: 02/09/17 21:00:00 LIGHT CLEANER Start Date: 01/11/17 Stop Date: 01/11/17 Status: Discontinued Lantus 100 units/mL Route: SUB-Q, Drug form: SOLN, Daily, Dosing Weight 80.909, kg, Start date: 05/26 9:00:00 CDT, Duration: 30 day, Stop date: 02/10/17 9:00:00 LIGHT CLEANER Start Date: 01/12/17 Stop Date: 01/11/17 Status: Canceled NovoLIN N See Instructions, SUB-Q BID, 0 Refill(s) Start Date: 01/11/17 Status: Ordered NovoLIN N 50 units, SUB-Q, Daily, 0 Refill(s) Start Date: 01/11/17 Status: Ordered NovoLIN N Route: SUB-Q, Daily, Dosing Weight 80.909, kg, Start date: 01/12/17 9:00:00 CDT, Duration: 30 day, Stop date: 02/10/17 9:00:00 LIGHT CLEANER Start Date: 01/12/17 Stop Date: 01/11/17 Status: Canceled NovoLIN N Route: SUB-Q, ONCE, Dosing Weight 80.909, kg, Start date: 01/11/17 20:33:00 CDT, Stop date: 01/11/17 20:33:00 CDT Start Date: 01/11/17 Stop Date: 01/11/17 Status: Ordered ondansetron 4 mg, Route: IVP, ONCE, Dosing Weight 77.273, kg, Priority: STAT, Start date: 3:08:00 CDT, Stop date: 01/11/17 3:08:00 CDT Start Date: 01/11/17 Stop Date: 01/11/17 Status: Completed Plavix 75 mg, 1 tab, Route: PO, Drug form: TAB, Daily, Dosing Weight 80.909, kg, Start date: 01/12/17 9:00:00 CDT, Duration: 30 day, Stop date: 02/10/17 9:00:00 LIGHT CLEANER Notes: (Same As: Plavix) Start Date: 01/12/17 Stop Date: 01/11/17 Status: Canceled potassium chloride 10 mEq, 1 tab, Route: PO, Drug form: ERTAB, BID, Dosing Weight 80.909, kg, Start date: 01/12/17 9:00:00 CDT, Duration: 30 day, Stop date: 02/10/17 17:00:00 LIGHT CLEANER Notes: (Same as: K-Dur 10)"Do Not Crush" With food and full glass of water Start Date: 01/12/17 Stop Date: 01/11/17 Status: Canceled Saline Flush 0.9% 10 mL, Route: IVP, Drug Form: INJ, Dosing Weight 77.273, kg, PRN, PRN Line Flush , Start date: 01/11/17 3:08:00 CDT, Duration: 30 day, Stop date: 02/10/17 2:07:0 0 LIGHT CLEANER Notes: (Same as: BD Posiflush) Start Date: 01/11/17 Stop Date: 01/11/17 Status: Discontinued simvastatin 10 mg, 1 tab, Route: PO, Drug form: TAB, Bedtime, Dosing Weight 80.909, kg, Star t date: 01/11/17 21:00:00 CDT, Duration: 30 day, Stop date: 02/09/17 21:00:00 CS T Notes: (Same as: Zocor) Start Date: 01/11/17 Stop Date: 01/11/17 Status: Discontinued Sodium Chloride 0.9% IV (Sodium Chloride 0.9% (Bolus) IV) 500 mL, Infuse Over: 1 hr, Route: IV, ONCE, Priority: STAT, Dosing Weight 77.273 kg, Start date: 01/11/17 3:08:00 CDT, Duration: 1 doses or times, Stop date: 3:08:00 CDT Start Date: 01/11/17 Stop Date: 01/11/17 Status: Completed Results ELECTROLYTES 1 2 3 Most recent to oldest [Reference Range]: 136 mEq/L (01/11/17 3:23 AM) Sodium Lvl [135-145 mEq/L] 3.9 mEq/L (01/11/17 3:23 AM) Potassium Lvl [3.5-5.1 mEq/L] 102 mEq/L (01/11/17 3:23 AM) Chloride Lvl [95-109 mEq/L] 27 mEq/L (01/11/17 3:23 AM) CO2 [24-32 mEq/L] 10.9 mEq/L (01/11/17 3:23 AM) AGAP [10.0-20.0 mEq/L] CHEM PANEL 1 2 3 Most recent to oldest [Reference Range]: 1.60 mg/dL *HI* (01/11/17 3:23 AM) Creatinine Lvl [0.50-1.40 mg/dL] 33 mL/min/1.73m2 1 *NA* (01/11/17 3:23 AM) eGFR 39 mg/dL *HI* (01/11/17 3:23 AM) BUN [7-22 mg/dL] 24 (01/11/17 3:23 AM) B/C Ratio [6-25] 328 mg/dL *HI* (01/11/17 3:23 AM) Glucose Lvl [70-99 mg/dL] 7.7 g/dL (01/11/17 3:23 AM) Total Protein [6.4-8.4 g/dL] 3.9 g/dL (01/11/17 3:23 AM) Albumin Lvl [3.5-5.0 g/dL] 3.8 g/dL (01/11/17 3:23 AM) Globulin [2.7-4.2 g/dL] 1.0 (01/11/17 3:23 AM) A/G Ratio [0.7-1.6] 9.2 mg/dL (01/11/17 3:23 AM) Calcium Lvl [8.5-10.5 mg/dL] 2.0 mg/dL (01/11/17 3:23 AM) Magnesium Lvl [1.8-2.4 mg/dL] 29 unit/L (01/11/17 3:23 AM) ALT [0-65 unit/L] 13 unit/L (01/11/17 3:23 AM) AST [0-37 unit/L] 92 unit/L (01/11/17 3:23 AM) Alk Phos [39-136 unit/L] 0.6 mg/dL (01/11/17 3:23 AM) Bili Total [0.2-1.3 mg/dL] 222 unit/L (01/11/17 3:23 AM) Lipase Lvl [73-393 unit/L] 1Result Comment: [...] 3 Most recent to oldest [Reference Range]: 76 unit/L (01/11/17 4:37 PM) 109 unit/L (01/11/17 11:02 AM) 90 unit/L (01/11/17 3:23 AM) Total CK [12-191 unit/L] 1.2 ng/mL (01/11/17 4:37 PM) 1.3 ng/mL (01/11/17 11:02 AM) 1.4 ng/mL (01/11/17 3:23 AM) CK MB [0.5-3.6 ng/mL] 1.6 (01/11/17 4:37 PM) 1.2 (01/11/17 11:02 AM) 1.6 (01/11/17 3:23 AM) CK MB Index [0.0-2.5] <0.02 ng/mL (01/11/17 4:37 PM) <0.02 ng/mL (01/11/17 11:02 AM) <0.02 ng/mL (01/11/17 3:23 AM) Troponin-I [0.00-0.40 ng/mL] HEMATOLOGY 1 2 3 Most recent to oldest [Reference Range]: 10.7 K/CMM *HI* (01/11/17 3:23 AM) WBC [3.7-10.4 K/CMM] 3.71 M/CMM *LOW* (01/11/17 3:23 AM) RBC [4.20-5.40 M/CMM] 12.4 g/dL (01/11/17 3:23 AM) Hgb [12.0-16.0 g/dL] 36.5 % (01/11/17 3:23 AM) Hct [36.0-48.0 %] 98.4 fL *HI* (01/11/17 3:23 AM) MCV [80.0-98.0 fL] 33.4 pg *HI* (01/11/17 3:23 AM) MCH [27.0-31.0 pg] 33.9 g/dL (01/11/17 3:23 AM) MCHC [32.0-36.0 g/dL] 13.0 % (01/11/17 3:23 AM) RDW [11.5-14.5 %] 243 K/CMM (01/11/17 3:23 AM) Platelet [133-450 K/CMM] 7.5 fL (01/11/17 3:23 AM) MPV [7.4-10.4 fL] 77.0 % *HI* (01/11/17 3:23 AM) Segs [45.0-75.0 %] 15.5 % *LOW* (01/11/17 3:23 AM) Lymphocytes [20.0-40.0 %] 6.4 % (01/11/17 3:23 AM) Monocytes [2.0-12.0 %] 0.4 % (01/11/17 3:23 AM) Eosinophils [0.0-4.0 %] 0.7 % (01/11/17 3:23 AM) Basophils [0.0-1.0 %] 8.2 K/CMM *HI* (01/11/17 3:23 AM) Segs-Bands # [1.5-8.1 K/CMM] 1.7 K/CMM (01/11/17 3:23 AM) Lymphocytes # [1.0-5.5 K/CMM] 0.7 K/CMM (01/11/17 3:23 AM) Monocytes # [0.0-0.8 K/CMM] 0.1 K/CMM (01/11/17 3:23 AM) Basophils # [0.0-0.2 K/CMM] 13.6 seconds (01/11/17 3:23 AM) PT [12.0-14.7 seconds] 1.04 (01/11/17 3:23 AM) INR [0.85-1.17] 28.0 seconds (01/11/17 3:23 AM) PTT [22.9-35.8 seconds] Immunizations No data available for this section Procedures Procedure Date Related Diagnosis Body Site Stent placement Social History Social History Type Response Smoking Status Never smoker; Exposure to Tobacco Smoke None; Cigarette Smoking Last 365 Days No; Reg Smoking Cessation Counseling No Assessment and Plan No data available for this section
[2018-01-14 19:52] LABS: BASOPHILS # (AUTO) 0.1 (0.0-0.1); BASOPHILS % 0.9 % (0.0-1.0); EOSINOPHILS # (AUTO) 0.4 (0.0-0.4); EOSINOPHILS % 5.4 % (0.0-6.0); HEMOGLOBIN 12.3 g/dL (12.0-16.0); LYMPHOCYTES # (AUTO) 2.1 (1.0-3.2); MEAN CORPUSCULAR HEMOGLOBIN 34.1 pg (28-32); MEAN CORPUSCULAR HGB CONC 34.2 g/dL (31-35); MEAN CORPUSCULAR VOLUME 99.7 fL (81-99); MONOCYTES # (AUTO) 0.8 (0.2-0.8); MONOCYTES % 9.7 % (4.4-11.3); NEUTROPHILS # (AUTO) 4.6 (2.1-6.9); NEUTROPHILS % 57.6 % (38.7-80.0); PLATELET COUNT 249 x10e3/uL (140-360); RED BLOOD COUNT 3.61 x10e6/uL (3.6-5.1); RED CELL DISTRIBUTION WIDTH 12.9 % (11.7-14.4)
[2018-01-14 19:56] LABS: INR 0.9
[2018-01-14 20:07] LABS: ALANINE AMINOTRANSFERASE 36 IU/L (0-55); ALBUMIN 3.9 g/dL (3.5-5.0); ALBUMIN/GLOBULIN RATIO 1.3 (0.8-2.0); ALKALINE PHOSPHATASE 85 IU/L (40-150); ANION GAP 14.9 mmol/L (8-16); BLOOD UREA NITROGEN 31 mg/dL (7-26); BUN/CREATININE RATIO 20 (6-25); CALCIUM 9.5 mg/dL (8.4-10.2); CARBON DIOXIDE 23 mmol/L (22-29); CHLORIDE 105 mmol/L (98-107); CREATINE KINASE 105 IU/L (29-168); CREATININE, SERUM 1.52 mg/dL (0.57-1.11); EST GLOMERULAR FILTRATION RATE 34 ML/MIN (60-); GLUCOSE 351 mg/dL (74-118); LIPASE 55 U/L (8-78); POTASSIUM 3.9 mmol/L (3.5-5.1); SODIUM 139 mmol/L (136-145)
[2018-01-14] MEDS ORDERED: NITROGLYCERIN 0.4 MG SUBL SL PRN (20:30)
[2018-01-14] MEDS ORDERED: MORPHINE SULFATE 2 MG/ML SYR IV PRN (20:30)
[2018-01-14] MEDS ORDERED: SODIUM CHLORIDE 0.9% 1000ML 1,000 ML IV ONE (20:30)
[2018-01-14] MEDS ORDERED: DEXTROSE 50% SYRINGE 50 ML IV PRN (20:30)
[2018-01-14] MEDS ORDERED: ONDANSETRON HCL INJ 2 MG/ML VIAL IV PRN (20:30)
--- NOTE | 2018-01-14 20:45 | Diagnostic Imaging Report ---
EXAMINATION: CHEST SINGLE (PORTABLE) INDICATION: Chest pain COMPARISON: None FINDINGS: TUBES and LINES: None. LUNGS: Lungs are well inflated. Lungs are clear. There is no evidence of pneumonia or pulmonary edema. PLEURA: No pleural effusion or pneumothorax. HEART AND MEDIASTINUM: The cardiomediastinal silhouette is unremarkable. BONES AND SOFT TISSUES: No acute osseous lesion. Soft tissues are unremarkable. UPPER ABDOMEN: No free air under the diaphragm. IMPRESSION: No acute thoracic abnormality. Signed by: Dr. Efra Guillory M.D. on 01/14/2018 8:41 PM
[2018-01-14 21:45] VITALS: BP 141/63
[2018-01-14] MEDS: INSULIN REGULAR, HUMAN 100 UNIT/1 ML 3ML VIAL SQ SCH (21:47)
[2018-01-14 22:09] VITALS: BP 141/63
[2018-01-15 04:00] VITALS: BP 122/60
[2018-01-15 05:45] LABS: CHOL/HDL RATIO 2.7 (3.0-3.6)
[2018-01-15 07:22] VITALS: BP 144/62
[2018-01-15 07:32] VITALS: BP 144/62
[2018-01-15] MEDS: INSULIN REGULAR, HUMAN 100 UNIT/1 ML 3ML VIAL SQ SCH ×2 (08:14→11:48)
[2018-01-15] MEDS ORDERED: ASPIRIN 325 MG TAB EC PO SCH (09:00)
[2018-01-15 11:24] VITALS: BP 117/56
--- NOTE | 2018-01-15 12:13 | Discharge Summary ---
PRIMARY CARE DOCTOR: Melvi Vanegas MD, with [facility]. FINAL DIAGNOSIS: Atypical chest pain in a patient with known coronary artery disease. SECONDARY DIAGNOSES 1. 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 2. Peripheral vascular disease with previous bilateral iliac stents. CIGAR INSPECTOR: None. PROCEDURES/STUDIES PERFORMED: None. HISTORY: Per H and P. HOSPITAL COURSE: The patient was admitted. Her repeat troponins were negative. Therefore, no acute myocardial infarction especially in the setting of 2 hours of chest pain is reassuring. The patient does have known disease and it is not amenable to stent placement. 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 At this time, the patient is stable for discharge. The patient will follow up with her [facility] vehicle body sander in 1 week. I have also updated her primary care doctor. Her creatinine was 1.24 last year. Currently, it is 1.5. The patient is to follow up with her primary care doctor in 1 week. CONDITION ON DISCHARGE: Stable. DISCHARGE MEDICATIONS: Please see medication reconciliation form. TG WATTS M.D. Job#: [id number] cc:MELVI VANEGAS MD
== END 2018-01-15 13:18 | disposition home or self-care (01) ==
LOC: ER 19:25 → ERHOLD 20:32 → IMCU 21:54
PROVIDERS: ADMIT Internal Medicine; ATTEND Internal Medicine
DX: R07.89 Other chest pain (principal); J30.1 Allergic rhinitis due to pollen; I25.10 Atherosclerotic heart disease of native coronary artery without angina pectoris; E11.22 Type 2 diabetes mellitus with diabetic chronic kidney disease; I12.9 Hypertensive chronic kidney disease with stage 1 through stage 4 chronic kidney disease, or unspecified chronic kidney disease; N18.3 Chronic kidney disease, stage 3 (moderate); I73.9 Peripheral vascular disease, unspecified; Z82.49 Family history of ischemic heart disease and other diseases of the circulatory system
CPT/HCPCS: 36415 ×2; 71045; 80053; 80061; 82550 ×2; 82553 ×2; 82948 ×2; 83690; 83880; 84484 ×2; 85025; 85610; 85730; 93005; 99284; G0378 ×2; J1817; J7030

== ENCOUNTER 2018-05-04 11:04 | Observation (INO) | payer MEDICARE ==
[~2018-05-04] VITALS: Ht 157.5 cm; Wt 83.5 kg
--- OUTSIDE RECORDS SUMMARY | 2018-05-04 11:07 | XMS REPORT | Clinical Summary ---
Author Author MILAGRO [facility] Address Unknown Phone Unavailable Care Team Providers Care Slab Worker Name Role Phone Pcp, No PCP Unavailable Allergies No Known Allergies Medications End Date Status Medication Sig Dispensed Refills Start Date Active atenolol (TENORMIN) 50 MG Take 50 mg by 0 tablet mouth daily. Active acetaminophen (TYLENOL) Take 500 mg 0 500 MG tablet by mouth every 6 (six) hours as needed. Active clopidogrel (PLAVIX) 75 Take 75 mg by 0 mg tablet mouth daily. Active fluticasone (FLOVENT Inhale 1 puff 0 DISKUS) 50 mcg/actuation by mouth via diskus inhaler inhaler 2 (two) times daily. Active traMADol (ULTRAM) 50 mg Take 50 mg by 0 tablet mouth every 6 (six) hours as needed. Active ammonium lactate Apply 0 (AMLACTIN) 12 % cream topically as needed. Active ketoconazole (NIZORAL) 2 Apply 0 % shampoo topically twice a week. Active nitroglycerin (NITROSTAT) Place 0.4 mg 0 0.4 MG SL tablet under the tongue every 5 (five) minutes as needed. Active cholecalciferol, vitamin Take by mouth 0 D3, 2,000 unit Cap daily. Active atorvastatin (LIPITOR) 40 Take 40 mg by 0 MG tablet mouth daily. Active insulin NPH 100 unit/mL Inject 58 0 (3 mL) InPn Units subcutaneousl y every morning before breakfast. Active insulin NPH 100 unit/mL Inject 40 0 (3 mL) InPn Units subcutaneousl y every evening before dinner. Active insulin regular (HUMULIN Inject 0 R,NOVOLIN R) 100 unit/mL subcutaneousl injection y 3 (three) times daily before meals 10 units AM, 12 Units Lunch, 15 Units in the PM. . Active aspirin 325 MG EC tablet Take 1 tablet 0 (325 mg 9 total) by mouth daily. Active furosemide (LASIX) 20 MG Take 1 tablet 20 tablet 0 tablet (20 mg total) 9 by mouth daily as needed (for leg swelling). 03/30/2019 Active lisinopril Take 1 tablet 30 tablet 0 (PRINIVIL,ZESTRIL) 10 MG (10 mg total) 9 tablet by mouth daily. Active potassium chloride Take 1 tablet 0 (KLOR-CON) 10 MEQ CR (10 mEq 9 tablet total) by mouth daily as needed Take with furosemide. 04/01/2019 Active isosorbide mononitrate Take 1 tablet 30 tablet 0 (IMDUR) 60 MG 24 hr (60 mg total) 9 tablet by mouth every morning Hold if SBP <120 mmhg. 04/01/2019 Active busPIRone (BUSPAR) 7.5 MG Take 1 tablet 60 tablet 0 tablet (7.5 mg 9 total) by mouth 2 (two) times daily. 03/27/2018 Discontinued albuterol Inhale 2 0 (PROVENTIL,VENTOLIN) 90 puffs by mcg/actuation inhaler mouth via inhaler every 6 (six) hours as needed. 03/29/2018 Discontinued amLODIPine (NORVASC) 10 Take 10 mg by 0 MG tablet mouth daily. 03/27/2018 Discontinued insulin lispro (HUMALOG) Inject 0 100 unit/mL injection subcutaneousl y 3 (three) times daily before meals 4 units before breakfast, 6 units before lunch and 8 units before dinner.. 03/29/2018 Discontinued lisinopril-hydrochlorothi Take 1 tablet 0 azide by mouth (PRINZIDE,ZESTORETIC) daily. 20-25 mg per tablet 03/29/2018 Discontinued potassium chloride Take 10 mEq 0 (KLOR-CON) 10 MEQ CR by mouth 2 tablet (two) times daily . 03/27/2018 Discontinued simvastatin (ZOCOR) 10 MG Take 10 mg by 0 tablet mouth nightly. 03/27/2018 Discontinued lidocaine (LIDODERM) 5 Place 1 patch 0 %(700 mg/patch) patch onto the skin daily. Remove & Discard patch within 12 hours or as directed by 03/27/2018 Discontinued insulin glargine (LANTUS) Inject 80 0 100 unit/mL injection Units subcutaneousl y every morning Use as directed . 03/29/2018 Discontinued furosemide (LASIX) 20 MG Take 20 mg by 0 tablet mouth 2 (two) times daily. 03/29/2018 Discontinued aspirin 81 MG EC tablet Take 81 mg by 0 mouth daily. 04/01/2018 Discontinued isosorbide mononitrate Take 1 tablet 30 tablet 0 (IMDUR) 60 MG 24 hr (60 mg total) 9 tablet by mouth every morning Hold if SBP <120 mmhg. Active Problems Problem Noted Date Cerebrovascular accident (CVA) due to thrombosis 03/29/2018 Abnormal arteriogram: 20% ISR of the aortic stent, 30% ostial ISR right 03/27/2018 iliac artery, 100% right femoral, multiple 99% lesions in the distal femoral artery 03/27/2018 Asthma 01/31/2017 Pseudophakia of left eye 08/10/2015 Mild nonproliferative diabetic retinopathy without macular edema associated 07/14/2015 with type 2 diabetes mellitus Iliac artery stenosis, bilateral (HCC) 80% Right MICHELA and 90% Left MICHELA 07/06/2015 07/06/2015 Abnormal angiogram: Patent ICast stent Infrarenal AA 07/06/2015 07/06/2015 Renal artery arteriosclerosis (HCC) bilateral non obstructive plaque 07/06/2015 07/06/2015 S/P angioplasty with stent Right MICHELA Express stent 8x37 10% residual; Left 07/06/2015 MICHELA Express x 2 overlapping 8 x 2710% residual 07/06/2015 Cataract 10/01/2014 Vitamin D deficiency 10/23/2013 Overview: Overview: ICD-10 CAD (coronary artery disease) failed stent to tight distal RCA stenosis 01/01/2013 MHSE 04/2007 Carotid stenosis, bilateral right 16-49% Left 50-79% per doppler 02/201201/01/2013 HTN (hypertension) 01/01/2013 Claudication in peripheral vascular disease 11/28/2012 Hypertensive renal disease 03/14/2011 Supraventricular premature beats 09/01/2010 Background retinopathy 04/11/2010 Overview: Overview: ICD-10 Mixed hyperlipidemia 04/29/2008 PAD (peripheral artery disease) Angina pectoris Overview: ICD9 DX Preparation Plant Repairer DM (diabetes mellitus) S/P angioplasty with stent abdominal aorta 80% stenosis w/ 50mmHg gradient Icast 38 x 10 resulting in No gradient and No residual stenosis 01/02/2013 Chronic kidney disease, stage II (mild) Obesity (BMI 30-39.9) Resolved Problems Problem Noted Date Resolved Date TIA (transient ischemic attack) 03/29/2018 Encounters Care Team Description Date Type Specialty Rudy Hair MD ABD AO & LOWER EXT ANGIOS/ POSS PPI 03/27/2018 Surgery Rudy Hair MD Alagugurusamy, Rajkumar, MD Abnormal angiogram (Primary Dx); Carotid stenosis, bilateral; Type 2 diabetes mellitus with other neurologic complication, unspecified whether alf insulin use (HCC); Hypertension, unspecified type; Mixed hyperlipidemia; Hx of transient ischemic attack (TIA); Aphasia; Right leg weakness 03/27/2018 Hospital Cardiology - Encounter 04/01/2018 03/27/2018 Orders Only General Internal Medicine after 05/03/2017 Social History Date Tobacco Use Types Packs/Day Years Used Never Smoker Smokeless Tobacco: Never Used Alcohol Use Drinks/Week oz/Week Comments No Sex Assigned at Date Recorded Not on file Industry Job Start Date Occupation Not on file Not on file Not on file Travel End Travel History Travel Start No recent travel history available. Last Filed Vital Signs Time Taken Vital Sign Reading 04/01/2018 10:53 AM RECREATIONAL SPECIALIST Blood Pressure 135/62 04/01/2018 10:53 AM RECREATIONAL SPECIALIST Pulse 95 04/01/2018 10:53 AM RECREATIONAL SPECIALIST Temperature 35.7 C (96.3 F) 04/01/2018 10:53 AM RECREATIONAL SPECIALIST Respiratory Rate 15 04/01/2018 10:53 AM RECREATIONAL SPECIALIST Oxygen Saturation 96% - Inhaled Oxygen - Concentration 03/27/2018 7:24 AM RECREATIONAL SPECIALIST Weight 82.5 kg (181 lb 14.4 oz) 03/27/2018 7:24 AM RECREATIONAL SPECIALIST Height 157.5 cm (5' 2") 03/27/2018 7:24 AM RECREATIONAL SPECIALIST Body Mass Index 33.27 Plan of Treatment Not on file Implants Device Identifier Shelf Expiration Date Model / Serial / Lot Implanted Type Area Manufactur er 04/07/2017 [id number] / / [id number] Express Ld Iliac / Biliary / Lt. [employer] Iliac [employer] Implanted: Qty: 1 on 07/06/2015 05/12/2018 [id number] / / [id number] Express Ld Iliac / Biliary [employer] Implanted: Qty: 1 on 07/06/2015 SCIENTIFIC 05/10/2018 [id number] / / [id number] Express Ld Iliac / Biliary / Rt. [employer] Iliac [employer] Implanted: Qty: 1 on 07/06/2015 Procedures Comments Procedure Name Priority Date/Time Associated Diagnosis REPORT OF PROCEDURE - 04/22/2018 ENDOSCOPY SCAN 8:00 AM RECREATIONAL SPECIALIST CARDIAC CATH REPORT - 04/22/2018 SCAN 8:00 AM RECREATIONAL SPECIALIST VASCULAR DIAGRAM -SCAN 04/22/2018 8:00 AM RECREATIONAL SPECIALIST RHYTHM STRIP - SCAN 04/22/2018 8:00 AM RECREATIONAL SPECIALIST POCT-GLUCOSE METER Routine 04/01/2018 1:38 PM RECREATIONAL SPECIALIST POCT-GLUCOSE METER Routine 04/01/2018 7:17 AM RECREATIONAL SPECIALIST BASIC METABOLIC PANEL (7) Routine 04/01/2018 5:30 AM RECREATIONAL SPECIALIST POCT-GLUCOSE METER Routine 03/31/2018 10:04 PM RECREATIONAL SPECIALIST POCT-GLUCOSE METER Routine 03/31/2018 5:26 PM RECREATIONAL SPECIALIST POCT-GLUCOSE METER Routine 03/31/2018 12:56 PM RECREATIONAL SPECIALIST NM CARDIAC PET PERFUSION STAT 03/31/2018 REST AND/OR STRESS 12:25 PM RECREATIONAL SPECIALIST TREADMILL Routine 03/31/2018 TOLERANCE(NON-NUCLEAR 12:17 PM RECREATIONAL SPECIALIST TREADMILL) POCT-GLUCOSE METER Routine 03/31/2018 8:42 AM RECREATIONAL SPECIALIST POCT-GLUCOSE METER Routine 03/30/2018 9:12 PM RECREATIONAL SPECIALIST POCT-GLUCOSE METER Routine 03/30/2018 5:04 PM RECREATIONAL SPECIALIST POCT-GLUCOSE METER Routine 03/30/2018 11:41 AM RECREATIONAL SPECIALIST TROPONIN I Routine 03/30/2018 11:39 AM RECREATIONAL SPECIALIST POCT-GLUCOSE METER Routine 03/30/2018 7:12 AM RECREATIONAL SPECIALIST TROPONIN I Routine 03/30/2018 5:22 AM RECREATIONAL SPECIALIST POCT-GLUCOSE METER Routine 03/29/2018 9:24 PM RECREATIONAL SPECIALIST ECG 12-LEAD Routine 03/29/2018 8:31 PM RECREATIONAL SPECIALIST Procedure Note - Interface, External Ris In - 03/29/2018 8:46 PM RECREATIONAL SPECIALIST Ventricula r Rate 87 BPM Atrial Rate 87 BPM P-R Interval 198 ms QRS Duration 98 ms Q-T Interval 404 ms QTC Calculatio n(Bazett) 486 ms P [place] 10 degrees R [place] -52 degrees T [place] 6 degrees Normal sinus rhythm Left anterior fascicular block Abnormal ECG When compared with ECG of 9 10:14, Vent. rate has increased BY 31 BPM QT has lengthened ECG 12-LEAD Routine 03/29/2018 8:31 PM RECREATIONAL SPECIALIST POCT-GLUCOSE METER Routine 03/29/2018 7:52 PM RECREATIONAL SPECIALIST VENOUS DOPPLER LEGS FARIDA 03/29/2018 BILATERAL 5:56 PM RECREATIONAL SPECIALIST POCT-GLUCOSE METER Routine 03/29/2018 4:57 PM RECREATIONAL SPECIALIST POCT-GLUCOSE METER Routine 03/29/2018 11:18 AM RECREATIONAL SPECIALIST POCT-GLUCOSE METER Routine 03/29/2018 9:44 AM RECREATIONAL SPECIALIST 2D ECHO W/ DOPPLER Routine 03/29/2018 (CW/PW/COLOR) 8:33 AM RECREATIONAL SPECIALIST POCT-GLUCOSE METER Routine 03/29/2018 7:22 AM RECREATIONAL SPECIALIST CBC W/PLT COUNT & AUTO Routine 03/29/2018 DIFFERENTIAL 4:11 AM RECREATIONAL SPECIALIST CBC W/PLT COUNT & AUTO Routine 03/29/2018 DIFFERENTIAL 4:11 AM RECREATIONAL SPECIALIST MAGNESIUM Routine 03/29/2018 4:11 AM RECREATIONAL SPECIALIST BASIC METABOLIC PANEL (7) Routine 03/29/2018 4:11 AM RECREATIONAL SPECIALIST POCT-GLUCOSE METER Routine 03/28/2018 8:41 PM RECREATIONAL SPECIALIST POCT-GLUCOSE METER Routine 03/28/2018 5:23 PM RECREATIONAL SPECIALIST MR BRAIN WITHOUT IV Routine 03/28/2018 CONTRAST 3:08 PM RECREATIONAL SPECIALIST MR MRA NECK WITHOUT IV Routine 03/28/2018 CONTRAST 3:08 PM RECREATIONAL SPECIALIST MR MRA HEAD WITHOUT Routine 03/28/2018 CONTRAST 3:08 PM RECREATIONAL SPECIALIST POCT-GLUCOSE METER Routine 03/28/2018 12:13 PM RECREATIONAL SPECIALIST POCT-GLUCOSE METER Routine 03/28/2018 10:11 AM RECREATIONAL SPECIALIST POCT-GLUCOSE METER Routine 03/28/2018 7:41 AM RECREATIONAL SPECIALIST CBC W/PLT COUNT & AUTO Routine 03/28/2018 DIFFERENTIAL 4:17 AM RECREATIONAL SPECIALIST C-REACTIVE PROTEIN Routine 03/28/2018 4:17 AM RECREATIONAL SPECIALIST CBC W/PLT COUNT & AUTO Routine 03/28/2018 DIFFERENTIAL 4:17 AM RECREATIONAL SPECIALIST MAGNESIUM Routine 03/28/2018 4:17 AM RECREATIONAL SPECIALIST MAGNESIUM Routine 03/28/2018 4:17 AM RECREATIONAL SPECIALIST BASIC METABOLIC PANEL (7) Routine 03/28/2018 4:17 AM RECREATIONAL SPECIALIST BASIC METABOLIC PANEL (7) Routine 03/28/2018 4:17 AM RECREATIONAL SPECIALIST RPR Routine 03/28/2018 4:17 AM RECREATIONAL SPECIALIST VITAMIN B12 AND FOLATE AP Routine 03/28/2018 4:17 AM RECREATIONAL SPECIALIST TSH/FREE T4 IF INDICATED Routine 03/28/2018 4:17 AM RECREATIONAL SPECIALIST HEMOGLOBIN A1C Routine 03/28/2018 4:17 AM RECREATIONAL SPECIALIST LIPID PANEL Routine 03/28/2018 4:[address] BRAIN/STROKE TEST STAT 03/27/2018 DESIGN 9:19 PM RECREATIONAL SPECIALIST POCT-GLUCOSE METER Routine 03/27/2018 8:47 PM RECREATIONAL SPECIALIST ABD AO & LOWER EXT 03/27/2018 Atherosclerosis of [place] ANGIOS/ POSS PPI 12:16 PM RECREATIONAL SPECIALIST artery of both lower extremities with intermittent claudication (HCC) Case Notes (4) CASE POP6 ECG 12-LEAD Routine 03/27/2018 10:14 AM RECREATIONAL SPECIALIST Procedure Note - Interface, External Ris In - 03/27/2018 12:08 PM RECREATIONAL SPECIALIST Ventricula r Rate 56 BPM Atrial Rate 56 BPM P-R Interval 196 ms QRS Duration 100 ms Q-T Interval 448 ms QTC Calculatio n(Bazett) 432 ms P [place] 19 degrees R [place] -35 degrees T [place] 44 degrees Sinus bradycardi a Left axis deviation Abnormal ECG No previous ECGs available ECG 12-LEAD Routine 03/27/2018 10:14 AM RECREATIONAL SPECIALIST POCT-GLUCOSE METER Routine 03/27/2018 9:06 AM RECREATIONAL SPECIALIST after 05/03/2017 Results * EKG-SCANNED (04/22/2018 8:00 AM RECREATIONAL SPECIALIST) Narrative Performed At * CARDIAC CATH REPORT - SCAN (04/22/2018 8:00 AM RECREATIONAL SPECIALIST) Narrative Performed At * VASCULAR DIAGRAM -SCAN (04/22/2018 8:00 AM RECREATIONAL SPECIALIST) Narrative Performed At * RHYTHM STRIP - SCAN (04/22/2018 8:00 AM RECREATIONAL SPECIALIST) Narrative Performed At * POC-Glucose meter (04/01/2018 1:38 PM RECREATIONAL SPECIALIST) Only the most recent of 23 results within the time period is included. POC-Glucose Meter 262 (H)Comment: TESTED AT 70 - 110 mg/dL [facility] [address] [facility] [id number] Specimen Blood Performing Organization Address City/State/Zipcode Phone Number [facility] [address] [place] [address] [facility] * Basic Metabolic Panel (04/01/2018 5:30 AM RECREATIONAL SPECIALIST) Only the most recent of 4 results within the time period is included. Sodium 135 (L) 136 - 145 meq/L [facility] Potassium 4.0 3.5 - 5.1 meq/L [facility] Chloride 105 98 - 107 meq/L [facility] CO2 23 22 - 29 meq/L [facility] BUN 26 (H) 7 - 21 mg/dL [facility] Creatinine 1.38 (H) 0.57 - 1.25 mg/dL [facility] Glucose 263 (H) 70 - 105 mg/dL [facility] Calcium 9.1 8.4 - 10.2 mg/dL [facility] EGFR 38Comment: ESTIMATED GFR IS mL/min/1.73 sq m [facility] NOT ACCURATE CREATININE [facility] CLEARANCE IN PREDICTING GLOMERULAR FILTRATION RATE. ESTIMATED GFR IS NOT APPLICABLE FOR DIALYSIS PATIENTS. Specimen Blood - Arm, Left Performing Organization Address City/State/Zipcode Phone Number [facility] [address] [place] [address] [facility] * NM myocardial perfusion PET (rest and stress) (03/31/2018 12:25 PM RECREATIONAL SPECIALIST) Narrative Performed At FINAL REPORT FREECULTR PROCEDURE:Rest/Stress MYOCARDIAL PERFUSION PET with regadenoson\\XA9\\ CPT CODE:40251 INDICATION:Chest pain HISTORY:Cardiac risk factors: Known CAD, diabetes mellitus, hypertension, obesity, lipid abnormality, BMI is 33.3. Other cardiovascular history: Chronic renal disease. Recent cardiac symptoms: Not documented. Current cardiovascular-related medications: Aspirin, Plavix, atenolol, atorvastatin. PROTOCOL:Limited low-dose CT imaging was performed for attenuation correction. 40 mCi of Rb-82 chloride was injected iv at rest, and gated PET (positron emission tomography) images were obtained. Subsequently, 2.1 mCi of Rb-82 chloride was injected iv at expected peak pharmacologic effect, and gated PET images were obtained. PRELIMINARY STRESS TEST DATA FROM NONINVASIVE CARDIOLOGY: Pharmacologic stress was by 10-second iv infusion of 0.4 mg of regadenoson.Radiotracer was injected 30 seconds after start of stress. Heart rate was 71 beats/min at rest and 98 beats/min (64% of MPHR) at tracer injection. BP was 147/51 mmHg at rest and 149/35 mmHg at tracer injection. Stress was stopped for predetermined endpoint. The patient experienced transient dyspnea and chest discomfort; treatment was 100 mg of Aminophyllin IV . Preliminary ECG evaluation revealed normal sinus rhythm with left axis deviation at rest and no ischemic changes with stress. (Final ECG interpretation and other stress and monitoring data are reported separately by Cardiology.) IMAGING FINDINGS:Study quality is good. Images obtained after stress injection show decreased inferior wall intensity. Resting images show improvement. LV volume appears normal . RV volume appears normal . Gated images obtained immediately after stress show normal LV wall motion. Gated images obtained at rest show normal LV wall motion. LVEF at rest is 72%. LVEF at stress is 65%. IMPRESSION: 1. Abnormal study.2. Appropriate pharmacologic stress.3. Abnormal myocardial perfusion.There is a reversible inferior wall defect .4. Normal resting resting LV function. There is an apparent drop in LV function with stress.5. Extracardiac tracer distribution is normal.6. Compared to previous [facility] study on 11/29/2005 was normal.. Signed: Dano De La Torre MD Report Verified Date/Time:03/31/2018 14:07:02 Procedure Note Interface, External Ris In - 03/31/2018 2:09 PM RECREATIONAL SPECIALIST FINAL REPORT PROCEDURE: Rest/Stress MYOCARDIAL PERFUSION PET with regadenoson\\XA9\\ CPT CODE: 96312 INDICATION: Chest pain HISTORY: Cardiac risk factors: Known CAD, diabetes mellitus, hypertension, obesity, lipid abnormality, BMI is 33.3. Other cardiovascular history: Chronic renal disease. Recent cardiac symptoms: Not documented. Current cardiovascular-related medications: Aspirin, Plavix, atenolol, atorvastatin. PROTOCOL: Limited low-dose CT imaging was performed for attenuation correction. 40 mCi of Rb-82 chloride was injected iv at rest, and gated PET (positron emission tomography) images were obtained. Subsequently, 2.1 mCi of Rb-82 chloride was injected iv at expected peak pharmacologic effect, and gated PET images were obtained. PRELIMINARY STRESS TEST DATA FROM NONINVASIVE CARDIOLOGY: Pharmacologic stress was by 10-second iv infusion of 0.4 mg of regadenoson. Radiotracer was injected 30 seconds after start of stress. Heart rate was 71 beats/min at rest and 98 beats/min (64% of MPHR) at tracer injection. BP was 147/51 mmHg at rest and 149/35 mmHg at tracer injection. Stress was stopped for predetermined endpoint. The patient experienced transient dyspnea and chest discomfort; treatment was 100 mg of Aminophyllin IV . Preliminary ECG evaluation revealed normal sinus rhythm with left axis deviation at rest and no ischemic changes with stress. (Final ECG interpretation and other stress and monitoring data are reported separately by Cardiology.) IMAGING FINDINGS: Study quality is good. Images obtained after stress injection show decreased inferior wall intensity. Resting images show improvement. LV volume appears normal . RV volume appears normal . Gated images obtained immediately after stress show normal LV wall motion. Gated images obtained at rest show normal LV wall motion. LVEF at rest is 72%. LVEF at stress is 65%. IMPRESSION: 1. Abnormal study. 2. Appropriate pharmacologic stress. 3. Abnormal myocardial perfusion. There is a reversible inferior wall defect . 4. Normal resting resting LV function. There is an apparent drop in LV function with stress. 5. Extracardiac tracer distribution is normal. 6. Compared to previous [facility] study on 11/29/2005 was normal.. Signed: Dano De La Torre MD Report Verified Date/Time: 03/31/2018 14:07:02 Performing Organization Address City/State/Zipcode Phone Number [facility]IS * Treadmill tolerance(Non-Nuclear Treadmill) (03/31/2018 12:17 PM RECREATIONAL SPECIALIST) Narrative Performed At Protocol Name [email or web address] Time In Exercise Phase 00:01:00 Max. Systolic BP 149 mmHg Max Diastolic BP 35 mmHg Max Heart Rate 98 BPM Max Predicted Heart Rate 151 BPM Reason For Termination Predetermined end point Reason for Test Chest Pain Target HR Formula (220 - Age)*100% Arrhythmias 1st deg AV Block Resting ECG Normal sinus rhythm Left [place] Deviation ST Changes No Significant Changes Overall Impression Indeterminate due to pharmacological stress Chest Pain Chest Tightness Max 10/10 HR Response To Exercise BP Response To Exercise ASA plavix ATENOLOL Atorvastatin NPH Insulin Confirmed by fellow Mike Cm ([id number]) on 04/01/2018 9:48:09 AM Confirmed by MD DE LA ROSA JORGE ([id number]) on 04/12/2018 1:38:08 PM Procedure Note Interface, External Ris In - 04/12/2018 1:38 PM RECREATIONAL SPECIALIST Protocol Name Adam Time In Exercise Phase 00:01:00 Max. Systolic BP 149 mmHg Max Diastolic BP 35 mmHg Max Heart Rate 98 BPM Max Predicted Heart Rate 151 BPM Reason For Termination Predetermined end point Reason for Test Chest Pain Target HR Formula (220 - Age)*100% Arrhythmias 1st deg AV Block Resting ECG Normal sinus rhythm Left [place] Deviation ST Changes No Significant Changes Overall Impression Indeterminate due to pharmacological stress Chest Pain Chest Tightness Max 10/10 HR Response To Exercise BP Response To Exercise ASA plavix ATENOLOL Atorvastatin NPH Insulin Confirmed by fellow Mike Cm ([id number]) on 04/01/2018 9:48:09 AM Confirmed by MD DE LA ROSA JORGE ([id number]) on 04/12/2018 1:38:08 PM Performing Organization Address City/State/[facility] Phone Number [employer] [facility] * Troponin I (03/30/2018 11:39 AM RECREATIONAL SPECIALIST) Only the most recent of 2 results within the time period is included. Troponin I 0.02 0.00 - 0.03 ng/mL [facility] Specimen Blood - Arm, Left Narrative Performed At Troponin I (TnI) levels must be interpreted in the context of the presenting [facility] symptoms and the clinical findings. Elevated TnI levels indicate myocardial [facility] damage, but are not specific for ischemic heart disease. Elevated TnI levels are seen in patients with other cardiac conditions (including myocarditis and congestive heart failure), and slight TnI elevations occur in patients with other conditions, including sepsis, renal failure, acidosis, acute neurological disease, and persistent tachyarrhythmia. Performing Organization Address City/State/Zipcode Phone Number [facility] [phone] [place] [address] [facility] * ECG 12 lead (03/29/2018 8:31 PM RECREATIONAL SPECIALIST) Only the most recent of 2 results within the time period is included. Narrative Performed At Ventricular Rate 87 BPM GE MUSE Atrial Rate 87 BPM P-R Interval 198 ms QRS Duration 98 ms Q-T Interval 404 ms QTC Calculation(Bazett) 486 ms P [place] 10 degrees R [place] -52 degrees T [place] 6 degrees Normal sinus rhythm Left anterior fascicular block Abnormal ECG When compared with ECG of 27-MAR-2018 10:14, Vent. rate has increased BY31 BPM QT has lengthened Confirmed by MD MONTGOMERY D. RICHARD ([id number]) on 03/30/2018 9:35:22 AM Procedure Note Interface, External Ris In - 03/30/2018 9:35 AM RECREATIONAL SPECIALIST Ventricular Rate 87 BPM Atrial Rate 87 BPM P-R Interval 198 ms QRS Duration 98 ms Q-T Interval 404 ms QTC Calculation(Bazett) 486 ms P [place] 10 degrees R [place] -52 degrees T [place] 6 degrees Normal sinus rhythm Left anterior fascicular block Abnormal ECG When compared with ECG of 27-MAR-2018 10:14, Vent. rate has increased BY 31 BPM QT has lengthened Confirmed by MD MONTGOMERY D. RICHARD ([id number]) on 03/30/2018 9:35:22 AM Performing Organization Address City/State/Zipcode Phone Number [employer] [facility]USE * Venous doppler legs bilateral (03/29/2018 5:56 PM RECREATIONAL SPECIALIST) Ejection Fraction [facility] E[facility]ART[facility] MKCKESSON CPACS Impressions Performed At Right Impression [facility] 1. There is no deep venous obstruction in the common femoral, profunda [facility] femoral, femoral, popliteal, posterior tibial or peroneal veins. 2. There is no superficial venous obstruction in the great saphenous vein. Left Impression 1. There is no deep venous obstruction in the common femoral, profunda femoral, femoral, popliteal, posterior tibial or peroneal veins. 2. There is no superficial venous obstruction in the great saphenous vein. Conclusions Summary Venous duplex imaging and compression of the bilateral lower extremities were performed. The veins were adequately visualized. The bilateral venous systems were patent and compressible with no evidence of thrombus. The venous Doppler waveforms were phasic with respiration. Signature Velocities are measured in cm/s ; Diameters are measured in cm Narrative Performed At PV LAB - Lower Extremities DVT Study [facility] ECHO HEARTLAB Demographics [facility] Patient Name CARINA HAGER Date of Study03/29/2018 LITO [id number] Age68 Visit Number [id number] Gender Female Accession Number [id number] Date of Birth1950 [facility] [id number] [facility] SonographerHeather Carri Dan, Interpreting Selam Sanchez, RVTPhysi cianMD Procedure Type of Study: Veins: Lower Extremities DVT Study, VENOUS DOPPLER LEG, BILATERAL. Indications for Study:CVA, PFO and Evaluate for DVT. Patient Status:FARIDA. Study Location:Vascular Lab. Technical Quality:Adequate visualization. Risk Factors History of Disease + +----+ + !Diagnosis !Date!Comments! + +----+ + !History/Risk Factors: !!PAD, CAD, DM, HTN ! + +----+ + Procedure Note Interface, External Ris In - 03/30/2018 8:55 AM RECREATIONAL SPECIALIST PV LAB - Lower Extremities DVT Study Demographics Patient Name CARINA HAGER Date of Study 03/29/2018 LITO Age 68 Visit Number [id number] Gender Female Accession Number [id number] Date of 1950 Referring [facility] Room Number 2443 Physician Fernanda 4[employer] Grade Teacher Ashlee Dan, Interpreting Selam Sanchez RVT Physician Procedure Type of Study: Veins: Lower Extremities DVT Study, VENOUS DOPPLER LEG, BILATERAL. Indications for Study:CVA, PFO and Evaluate for DVT. Patient Status:FARIDA. Study Location:Vascular Lab. Technical Quality:Adequate visualization. Risk Factors History of Disease + +----+ + !Diagnosis !Date!Comments ! + +----+ + !History/Risk Factors: ! !PAD, CAD, DM, HTN ! + +----+ + Impressions Right Impression 1. There is no deep venous obstruction in the common femoral, profunda femoral, femoral, popliteal, posterior tibial or peroneal veins. 2. There is no superficial venous obstruction in the great saphenous vein. Left Impression 1. There is no deep venous obstruction in the common femoral, profunda femoral, femoral, popliteal, posterior tibial or peroneal veins. 2. There is no superficial venous obstruction in the great saphenous vein. Conclusions Summary Venous duplex imaging and compression of the bilateral lower extremities were performed. The veins were adequately visualized. The bilateral venous systems were patent and compressible with no evidence of thrombus. The venous Doppler waveforms were phasic with respiration. Signature Velocities are measured in cm/s ; Diameters are measured in cm Performing Organization Address City/State/Zipcode Phone Number [facility]ing [facility]ART[facility] * 2D Echo W/Doppler(CW/PW/Color) (03/29/2018 8:33 AM RECREATIONAL SPECIALIST) Ejection Fraction [facility] ECHO HEARTLAB [facility] Narrative Performed At Transthoracic Echocardiography Report (TTE) [facility] I-lighting HEARTgAuto Demographics [facility] Patient Name CARINA HAGER Date of Study 03/29/2018 LITO [id number] GenderFemale Visit Number [id number] [facility] [id number] Number [id number] Number Date of Birth1950 Referring Physician Reginaldo Grant MD Age68 year(s) 4Th Grade Teacher Lucio Sotomayor AnalystAlex Neetu Dang MD Physician Procedure Type of Study TTE procedure:2DECHO W DOPPLER(CW/PW/COLOR) Indications:Stroke work up. 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 Height: 62 inches Weight: 82.1 kg (181 lbs) BSA: 1.83 m^2 BMI: 33.1 kg/m^2 HR: 67 bpm BP: 118/54 mmHg Summary IV saline contrast injection demostrates a PFO (patent foramen ovale) at rest and post Valsalva . Signature Findings Left Ventricle The left ventricle is chamber size (by PSLAX dimension) is normal (female - LVIDd 3.8-5.2cm) . Mild concentric LV hypertrophy. All of the LV segments contract normally . Estimated LVEF by qualitative assessment is normal (55-60%) . Grade 1 diastolic dysfunction (impaired relaxation and low-normal LA pressure). Left AtriumLA size is normal . Right VentricleNormal right ventricle structure and function. Right Atrium Normal right atrium. Atrial SeptumIV saline contrast injection demostrates a PFO (patent foramen ovale) at rest and post Valsalva . Aortic Valve Mild AoV cusp thickening. Mild aortic regurgitation. Mitral Valve Mild MV leaflet thickening. Tricuspid ValveA trace of tricuspid regurgitation. Unable to estimate peak systolic PA pressure; inadequate TR velocity signal. Pulmonic Valve Normal PV structure and function by limited views and Doppler. AortaAortic root size (SInus of Valsalva diameter) is normal . PericardiumNo evidence of pericardial effusion. IVC/SVC/PA/PV/PleuralThe estimated RA pressure by IVC dynamics 0-5mmHg . Chambers/Structures Left Atrium LA Dimension: 3.85 cm LA Volume: 58.6 ml LA Vol. Index: 32 ml/m^2 Left Ventricle LVIDd: 4.41 cm LV Septum Diastolic: 1.19 cm LV PW Diastolic: 1.26 cm Aorta Ao Root S of Sparkle.: 3.25 cm Doppler/Quantitative Measurements LVOT Peak Velocity: 1 m/sPeak Gradient: 3.99 mmHg Mean Velocity: 0.66 m/s Mean Gradient: 2.05 mmHg LVOT VTI: 24.64 cm Procedure Note Interface, External Ris In - 03/29/2018 1:13 PM RECREATIONAL SPECIALIST Transthoracic Echocardiography Report (TTE) Demographics Patient Name CARINA HAGER Date of Study 03/29/2018 LITO Gender Female Visit Number [id number] Race Unknown Room Number 2443 Number Date of 1950 Referring Physician Reginaldo Grant MD Age 68 year(s) 4Th Grade Teacher Lucio Sotomayor Rn Patient Care Yury Ward Interpreting Adriana Dang MD Physician Procedure Type of Study TTE procedure:2DECHO W DOPPLER(CW/PW/COLOR) Indications:Stroke work up. 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 Height: 62 inches Weight: 82.1 kg (181 lbs) BSA: 1.83 m^2 BMI: 33.1 kg/m^2 HR: 67 bpm BP: 118/54 mmHg Summary IV saline contrast injection demostrates a PFO (patent foramen ovale) at rest and post Valsalva . Signature Findings Left Ventricle The left ventricle is chamber size (by PSLAX dimension) is normal (female - LVIDd 3.8-5.2cm) . Mild concentric LV hypertrophy. All of the LV segments contract normally . Estimated LVEF by qualitative assessment is normal (55-60%) . Grade 1 diastolic dysfunction (impaired relaxation and low-normal LA pressure). Left Atrium LA size is normal . Right Ventricle Normal right ventricle structure and function. Right Atrium Normal right atrium. Atrial Septum IV saline contrast injection demostrates a PFO (patent foramen ovale) at rest and post Valsalva . Aortic Valve Mild AoV cusp thickening. Mild aortic regurgitation. Mitral Valve Mild MV leaflet thickening. Tricuspid Valve A trace of tricuspid regurgitation. Unable to estimate peak systolic PA pressure; inadequate TR velocity signal. Pulmonic Valve Normal PV structure and function by limited views and Doppler. Aorta Aortic root size (SInus of Valsalva diameter) is normal . Pericardium No evidence of pericardial effusion. IVC/SVC/PA/PV/Pleural The estimated RA pressure by IVC dynamics 0-5mmHg . Chambers/Structures Left Atrium LA Dimension: 3.85 cm LA Volume: 58.6 ml LA Vol. Index: 32 ml/m^2 Left Ventricle LVIDd: 4.41 cm LV Septum Diastolic: 1.19 cm LV PW Diastolic: 1.26 cm Aorta Ao Root S of Sparkle.: 3.25 cm Doppler/Quantitative Measurements LVOT Peak Velocity: 1 m/s Peak Gradient: 3.99 mmHg Mean Velocity: 0.66 m/s Mean Gradient: 2.05 mmHg LVOT VTI: 24.64 cm Performing Organization Address City/State/Zipcode Phone Number [facility] ECHO HEARTLAB [facility] * CBC with platelet count + automated diff (03/29/2018 4:11 AM RECREATIONAL SPECIALIST) Only the most recent of 2 results within the time period is included. WBC 7.9 3.5 - 10.5 K/L [facility] RBC 3.45 (L) 3.93 - 5.22 M/L [facility] Hemoglobin 11.6 11.2 - 15.7 GM/DL [facility] Hematocrit 35.3 34.1 - 44.9 % [facility] MCV 102.3 (H) 79.4 - 94.8 fL [facility] MCH 33.6 (H) 25.6 - 32.2 pg [facility] MCHC 32.9 32.2 - 35.5 GM/DL [facility] RDW 12.7 11.7 - 14.4 % [facility] Platelets 214 150 - 450 K/CU MM [facility] MPV 9.7 9.4 - 12.3 fL [facility] nRBC 0 0 - 0 /100 WBC [facility] % Neutros 51 % [facility] % Lymphs 35 % [facility] % Monos 10 % [facility] % Eos 3 % [facility] % Baso 1 % [facility] # Neutros 4.05 1.56 - 6.13 K/L [facility] # Lymphs 2.74 1.18 - 3.74 K/L [facility] # Monos 0.77 (H) 0.24 - 0.36 K/L [facility] # Eos 0.27 0.04 - 0.36 K/L [facility] # Baso 0.09 (H) 0.01 - 0.08 K/L [facility] Immature 0 0 - 1 % [facility] Granulocytes-[facility] Specimen Blood Performing Organization Address City/State/Zipcode Phone Number [facility] [address] [place] [address] [facility] * Magnesium (03/29/2018 4:11 AM RECREATIONAL SPECIALIST) Only the most recent of 3 results within the time period is included. Magnesium 1.8 1.6 - 2.6 mg/dL [facility] Specimen Blood Performing Organization Address City/State/Zipcode Phone Number [facility] [address] [place] [address] [facility] * MR brain without IV contrast (03/28/2018 3:08 PM RECREATIONAL SPECIALIST) Narrative Performed At FINAL REPORT [facility] MRI brain without contrast 03/28/2018 2:48 PM CLINICAL INDICATION: Stroke Ischemic Stroke Evaluation TECHNIQUE: Multiplanar, multisequence MR imaging of the brain was performed utilizing the following imaging sequences: Axial T1, T2, FLAIR, GRE, and DWI; sagittal and coronal T1-weighted images. COMPARISON: 11/02/2004 FINDINGS: Patient motion limits this examination. Pathology may be obscured. With this limitation mind, there is a punctate focus of acute nonhemorrhagic ischemia in the left insular cortex. There is no acute infarct, hematoma, mass, hydrocephalus, or extra-axial collection. There are small chronic infarcts scattered throughout the cerebellum. There is mild chronic microvascular ischemia in the supratentorial white matter. Normal appearing flow-voids are present in the major intracranial vascular structures. The sellar and pineal regions and craniocervical junction are unremarkable. 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 The face and skull base are unremarkable. IMPRESSION: 1. Motion limited examination. 2. Punctate acute nonhemorrhagic left insular cortex infarct. 3. Chronic ischemic changes as discussed. Signed: Yoel Calvillo MD Report Verified Date/Time:03/28/2018 14:50:48 Reading Location: [facility] Radiology Reading Room Procedure Note Interface, External Ris In - 03/28/2018 3:08 PM RECREATIONAL SPECIALIST FINAL REPORT MRI brain without contrast 03/28/2018 2:48 PM CLINICAL INDICATION: Stroke Ischemic Stroke Evaluation TECHNIQUE: Multiplanar, multisequence MR imaging of the brain was performed utilizing the following imaging sequences: Axial T1, T2, FLAIR, GRE, and DWI; sagittal and coronal T1-weighted images. COMPARISON: 11/02/2004 FINDINGS: Patient motion limits this examination. Pathology may be obscured. With this limitation mind, there is a punctate focus of acute nonhemorrhagic ischemia in the left insular cortex. There is no acute infarct, hematoma, mass, hydrocephalus, or extra-axial collection. There are small chronic infarcts scattered throughout the cerebellum. There is mild chronic microvascular ischemia in the supratentorial white matter. Normal appearing flow-voids are present in the major intracranial vascular structures. The sellar and pineal regions and craniocervical junction are unremarkable. 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 The face and skull base are unremarkable. IMPRESSION: 1. Motion limited examination. 2. Punctate acute nonhemorrhagic left insular cortex infarct. 3. Chronic ischemic changes as discussed. Signed: Yoel Calvillo MD Report Verified Date/Time: 03/28/2018 14:50:48 Reading Location: [facility] Radiology Reading Room Performing Organization Address City/State/Zipcode Phone Number [facility] * MRA neck without IV contrast (03/28/2018 3:08 PM RECREATIONAL SPECIALIST) Narrative Performed At FINAL REPORT [facility] MRA brain and neck without contrast 03/28/2018 3:04 PM CLINICAL HISTORY: Stroke Ischemic Stroke Evaluation COMPARISON: 11/02/2004 TECHNIQUE: Two- and three-dimensional [id number]-[id number]-xosjgn MRA images of the intra- and extracranial arterial vasculature was performed, from which maximal intensity projection 3-D reconstructions were created. FINDINGS: Patient motion limits these examinations. Pathology may be obscured. With this limitation mind, there is occlusion of the extracranial right vertebral artery. Thready flow related enhancement in the intracranial right vertebral artery suggests retrograde flow. The remainder of the intracranial and extracranial arterial vasculature is patent. There is moderately occlusive atherosclerotic plaque in the left common carotid artery. There is 25% stenosis in the proximal right cervical internal carotid artery (NASCET criteria). Flow is antegrade in the left vertebral artery. IMPRESSION: 1. Motion limited examination. 2. Extracranial right vertebral artery occlusion. 3. Moderate left common carotid and mild right cervical internal carotid artery stenosis. Signed: Yoel Calvillo MD Report Verified Date/Time:03/28/2018 15:08:10 Reading Location: [facility] Radiology Reading Room Procedure Note Interface, External Ris In - 03/28/2018 3:10 PM RECREATIONAL SPECIALIST FINAL REPORT MRA brain and neck without contrast 03/28/2018 3:04 PM CLINICAL HISTORY: Stroke Ischemic Stroke Evaluation COMPARISON: 11/02/2004 TECHNIQUE: Two- and three-dimensional idbc-se-[id number] MRA images of the intra- and extracranial arterial vasculature was performed, from which maximal intensity projection 3-D reconstructions were created. FINDINGS: Patient motion limits these examinations. Pathology may be obscured. With this limitation mind, there is occlusion of the extracranial right vertebral artery. Thready flow related enhancement in the intracranial right vertebral artery suggests retrograde flow. The remainder of the intracranial and extracranial arterial vasculature is patent. There is moderately occlusive atherosclerotic plaque in the left common carotid artery. There is 25% stenosis in the proximal right cervical internal carotid artery (NASCET criteria). Flow is antegrade in the left vertebral artery. IMPRESSION: 1. Motion limited examination. 2. Extracranial right vertebral artery occlusion. 3. Moderate left common carotid and mild right cervical internal carotid artery stenosis. Signed: Yoel Calvillo MD Report Verified Date/Time: 03/28/2018 15:08:10 Reading Location: [facility] Radiology Reading Room Performing Organization Address City/State/Zipcode Phone Number [facility] * MRA head without IV contrast (03/28/2018 3:08 PM RECREATIONAL SPECIALIST) Narrative Performed At FINAL REPORT [facility] MRA brain and neck without contrast 03/28/2018 3:04 PM CLINICAL HISTORY: Stroke Ischemic Stroke Evaluation COMPARISON: 11/02/2004 TECHNIQUE: Two- and three-dimensional clzb-ax-[id number] MRA images of the intra- and extracranial arterial vasculature was performed, from which maximal intensity projection 3-D reconstructions were created. FINDINGS: Patient motion limits these examinations. Pathology may be obscured. With this limitation mind, there is occlusion of the extracranial right vertebral artery. Thready flow related enhancement in the intracranial right vertebral artery suggests retrograde flow. The remainder of the intracranial and extracranial arterial vasculature is patent. There is moderately occlusive atherosclerotic plaque in the left common carotid artery. There is 25% stenosis in the proximal right cervical internal carotid artery (NASCET criteria). Flow is antegrade in the left vertebral artery. IMPRESSION: 1. Motion limited examination. 2. Extracranial right vertebral artery occlusion. 3. Moderate left common carotid and mild right cervical internal carotid artery stenosis. Signed: Yoel Calvillo MD Report Verified Date/Time:03/28/2018 15:08:10 Reading Location: [facility] Radiology Reading Room Procedure Note Interface, External Ris In - 03/28/2018 3:10 PM RECREATIONAL SPECIALIST FINAL REPORT MRA brain and neck without contrast 03/28/2018 3:04 PM CLINICAL HISTORY: Stroke Ischemic Stroke Evaluation COMPARISON: 11/02/2004 TECHNIQUE: Two- and three-dimensional qkvn-ia-qeublw MRA images of the intra- and extracranial arterial vasculature was performed, from which maximal intensity projection 3-D reconstructions were created. FINDINGS: Patient motion limits these examinations. Pathology may be obscured. With this limitation mind, there is occlusion of the extracranial right vertebral artery. Thready flow related enhancement in the intracranial right vertebral artery suggests retrograde flow. The remainder of the intracranial and extracranial arterial vasculature is patent. There is moderately occlusive atherosclerotic plaque in the left common carotid artery. There is 25% stenosis in the proximal right cervical internal carotid artery (NASCET criteria). Flow is antegrade in the left vertebral artery. IMPRESSION: 1. Motion limited examination. 2. Extracranial right vertebral artery occlusion. 3. Moderate left common carotid and mild right cervical internal carotid artery stenosis. Signed: Yoel Calvillo MD Report Verified Date/Time: 03/28/2018 15:08:10 Reading Location: [facility] Radiology Reading Room Performing Organization Address [facility] Phone Number [facility] * Vitamin B12 and Folate (03/28/2018 4:17 AM RECREATIONAL SPECIALIST) Vitamin B12 389 211 - 911 pg/mL [facility] Folate 16.1Comment: This is a >=5.4 ng/mL [facility] corrected result. Previous result was 14.3 ng/mL on 03/28/2018 at 1050 RECREATIONAL SPECIALIST Specimen Blood Performing Organization Address [facility] Phone Number [facility] [place] [address] [facility] [address] [place] [id number] * TSH/Free T4 If Indicated (03/28/2018 4:17 AM RECREATIONAL SPECIALIST) TSH 1.48 0.35 - 4.94 uIU/mL [facility] Specimen Blood Performing Organization Address City/State/Zipcode Phone Number [address] * C-Reactive Protein (03/28/2018 4:17 AM RECREATIONAL SPECIALIST) CRP 0.22 0.00 - 0.50 mg/dL [facility] Specimen Blood Performing Organization Address City/State/Zipcode Phone Number [address] * RPR (03/28/2018 4:17 AM RECREATIONAL SPECIALIST) RPR Nonreactive Nonreactive [facility] Specimen Blood Performing Organization Address City/[facility]/Zipcode Phone Number [address] * Hemoglobin A1c (03/28/2018 4:17 AM RECREATIONAL SPECIALIST) Hemoglobin A1C 7.9 (H) 4.3 - 6.1 % [facility] Specimen Blood Performing Organization Address City/[facility]/Zipcode Phone Number [address] * Lipid panel (03/28/2018 4:17 AM RECREATIONAL SPECIALIST) Triglycerides 215 mg/dL [facility] Cholesterol 136 mg/dL [facility] HDL 42 mg/dL [facility] LDL Calculated 51 mg/dL [facility] Specimen Blood Narrative Performed At Triglyceride Reference Range: [facility] Low Risk <150 [facility] [id number] High Risk 200-499 Very High Risk>=500 Cholesterol Reference Range: Low Risk <200 [id number] High Risk>240 HDL Cholesterol Reference Range: Low Risk >=60 High Risk <40 LDL Cholesterol Reference Range: Optimal<100 Near [id number] [id number] Acjy939-121 Very High >=190 Performing Organization Address City/State/Zipcode Phone Number [facility] [address] [place] [address] [facility] * CT brain/stroke test design (03/27/2018 9:19 PM RECREATIONAL SPECIALIST) Narrative Performed At FINAL REPORT FREECULTR CT Head without contrast CLINICAL HISTORY: Stroke, aphasia and right-sided weakness. TECHNIQUE: Contiguous axial images through the head without contrast. This exam was performed according to the departmental dose optimization program which includes automated exposure control, adjustment of the mA and/or kV according to the patient size, and/or use of an iterative reconstruction technique. COMPARISON: MRI brain, 11/02/2004. FINDINGS: There is no CT evidence of acute infarct or intracranial hemorrhage. Chronic bilateral cerebellar hemisphere infarctions. Density of the basilar and bilateral middle cerebral arteries may be related to reported history of recent intravenous contrast administration from prior earlier procedure. There is periventricular and subcortical white matter hypodensity which is nonspecific but compatible with chronic microvascular ischemic change. There are atherosclerotic calcifications of the intracranial circulation. There is generalized parenchymal volume loss without hydrocephalus, midline shift, or apparent mass effect. There are no extra-axial fluid collections. The skull is intact. The paranasal sinuses are well-aerated. Calcifications /postprocedural changes of the right globe. IMPRESSION: There is no CT evidence of acute infarct or intracranial hemorrhage. If persistent clinical concern for acute intracranial abnormality/stroke recommend further evaluation with MRI brain. Ischemic and involutional changes as described above. The findings were discussed with the in-house neurology stroke resident at 03/27/2018, 2130 hours Signed: Merly Renteria MD Report Verified Date/Time:03/27/2018 21:33:33 Reading Location: [address] Transitional Reading Room Procedure Note Interface, External Ris In - 03/27/2018 9:35 PM RECREATIONAL SPECIALIST FINAL REPORT CT Head without contrast CLINICAL HISTORY: Stroke, aphasia and right-sided weakness. TECHNIQUE: Contiguous axial images through the head without contrast. This exam was performed according to the departmental dose optimization program which includes automated exposure control, adjustment of the mA and/or kV according to the patient size, and/or use of an iterative reconstruction technique. COMPARISON: MRI brain, 11/02/2004. FINDINGS: There is no CT evidence of acute infarct or intracranial hemorrhage. Chronic bilateral cerebellar hemisphere infarctions. Density of the basilar and bilateral middle cerebral arteries may be related to reported history of recent intravenous contrast administration from prior earlier procedure. There is periventricular and subcortical white matter hypodensity which is nonspecific but compatible with chronic microvascular ischemic change. There are atherosclerotic calcifications of the intracranial circulation. There is generalized parenchymal volume loss without hydrocephalus, midline shift, or apparent mass effect. There are no extra-axial fluid collections. The skull is intact. The paranasal sinuses are well-aerated. Calcifications /postprocedural changes of the right globe. IMPRESSION: There is no CT evidence of acute infarct or intracranial hemorrhage. If persistent clinical concern for acute intracranial abnormality/stroke recommend further evaluation with MRI brain. Ischemic and involutional changes as described above. The findings were discussed with the in-house neurology stroke resident at 03/27/2018, 2130 hours Signed: Merly Renteria MD Report Verified Date/Time: 03/27/2018 21:33:33 Reading Location: [address] Transitional Reading Room Performing Organization Address City/State/Zipcode Phone Number GE RIS after 05/03/2017 Insurance Payer Benefit Subscriber ID Type Phone Address Plan / Group [facility] xxxxxxxxxxx MEDICARE ADV Advance Directives For more information, please contact: [facility] [address] [place] [address] Date Inactivated Comments Code Status Date Activated Full Code 03/27/2018 7:49 AM This code status was determined by: Patient 07/07/2015 2:44 PM Full Code 07/06/2015 7:41 AM This code status was determined by: Patient 01/03/2013 3:55 PM All possible means of support including;cardiac massage, mechanical ventilation, and defibrillation will be used to support life. Code ONE 01/02/2013 6:43 AM 11/28/2012 7:48 PM All possible means of support including;cardiac massage, mechanical ventilation, and defibrillation will be used to support life. Code ONE 11/28/2012 7:51 AM
--- OUTSIDE RECORDS SUMMARY | 2018-05-04 11:08 | XMS REPORT ---
Author Author [facility] Address Unknown Phone Unavailable Care Team Providers Care Corporate Ethics Officer Name Role Phone LETICIA BERMUDEZ Unavailable Unavailable Gloria WATTS Unavailable Unavailable Problems This patient has no known problems. Allergies, Adverse Reactions, Alerts This patient has no known allergies or adverse reactions. Medications This patient has no known medications. Results Test Description Test Time Test Comments Text Results Atomic Results Result Comments POCT-GLUCOSE METER 2018-04-01 13:40:00 POC-GLUCOSE METER (BEAKER) (test lnwa=2642) 262 mg/dL 70-110 [address]ED AT [address] [address] BASIC METABOLIC [id number] 08:17:00* Test Item Value Reference Range Comments SODIUM (BEAKER) (test ftbq=685) 135 meq/L 136-145 POTASSIUM (BEAKER) (test xbnf=647) 4.0 meq/L 3.5-5.1 CHLORIDE (BEAKER) (test khcy=241) 105 meq/L 98-107 CO2 (BEAKER) (test tdbd=345) 23 meq/L 22-29 BLOOD UREA NITROGEN (BEAKER) (test coqi=081) 26 mg/dL 7-21 CREATININE (BEAKER) (test roju=787) 1.38 mg/dL 0.57-1.25 GLUCOSE RANDOM (BEAKER) (test ikso=319) 263 mg/dL 70-105 CALCIUM (BEAKER) (test ppof=536) 9.1 mg/dL 8.4-10.2 EGFR (BEAKER) (test vnhw=0058) 38 mL/min/1.73 sq m ESTIMATED GFR IS NOT ACCURATE CREATININE CLEARANCE IN PREDICTING GLOMERULAR FILTRATION RATE. ESTIMATED GFR IS NOT APPLICABLE FOR DIALYSIS PATIENTS. POCT-GLUCOSE [id number] 07:50:00* Test Item Value Reference Range Comments POC-GLUCOSE METER (BEAKER) (test rezf=7394) 254 mg/dL 70-[address] [facility] [address] [facility] [address] POCT-GLUCOSE [id number] 22:16:00* Test Item Value Reference Range Comments POC-GLUCOSE METER (BEAKER) (test ieoz=2780) 257 mg/dL 70-[address] [facility] [address] [facility] [address] POCT-GLUCOSE [id number] 17:34:00* Test Item Value Reference Range Comments POC-GLUCOSE METER (BEAKER) (test xkdr=3128) 357 mg/dL 70-110 Will Repeat Test/TESTED AT [address] [address] PET, CARDIAC PERFUSION MULTIPLE STUDIES, REST AND [id number] 14:07:00 Reason for exam:->chest painFINAL REPORT PROCEDURE: Rest/Stress MYOCARDIAL PERFUSION PET with regadenoson\XA9\ CPT CODE: 05062 INDICATION: Chest pain HISTORY: Cardiac risk factors: [...] no ischemic changes with stress. (Final ECG i nterpretation and other stress and monitoring data are reported separately by Ca rdiology.) IMAGING FINDINGS: Study quality is good. Images obtained afte r stress injection show decreased inferior wall intensity. Resting images show i mprovement. LV volume appears normal . RV volume appears normal . Gated images obtained immediately after stress show normal LV wall motion. Gated images obtai sia at rest show normal LV wall motion. LVEF at rest is 72%. LVEF at stress is 6 5%. IMPRESSION: 1. Abnormal study. 2. Appropriate pharmacologic stress. 3. A bnormal myocardial perfusion. There is a reversible inferior wall defect . 4. Normal resting resting LV function. There is an apparent drop in LV function wit h stress. 5. Extracardiac tracer distribution is normal. 6. Compared to previo us [facility] study on 11/29/2005 was normal.. Signed: [facility] Date/Time: 03/31/2018 14:07:02 -GLUCOSE [id number] 13:02:00* Test Item Value Reference Range Comments POC-GLUCOSE METER (BEAKER) (test npxc=1970) 239 mg/dL 70-110 TESTED AT [place] [id number] POCT-GLUCOSE [id number] 08:44:00* Test Item Value Reference Range Comments POC-GLUCOSE METER (BEAKER) (test tdxp=4561) 218 mg/dL 70-110 TESTED AT [address] [address] POCT-GLUCOSE [id number] 21:21:00* Test Item Value Reference Range Comments POC-GLUCOSE METER (BEAKER) (test rgdp=9574) 273 mg/dL 70-110 TESTED AT [address] [address] POCT-GLUCOSE [id number] 17:06:00* Test Item Value Reference Range Comments POC-GLUCOSE METER (BEAKER) (test lzaj=5912) 263 mg/dL 70-110 TESTED AT [place] [id number] TROPONIN [id number] 12:27:00* Test Item Value Reference Range Comments TROPONIN I (BEAKER) (test bhtq=963) 0.02 ng/mL 0.00-0.03 Troponin I (TnI) levels must be interpreted in the context of the presenting sym ptoms and the clinical findings. Elevated TnI levels indicate myocardial damage, but are not specific for ischemic heart disease. Elevated TnI levels are seen in patients with other cardiac conditions (including myocarditis and congestive h eart failure), and slight TnI elevations occur in patients with other conditions , including sepsis, renal failure, acidosis, acute neurological disease, and per sistent tachyarrhythmia.POCT-GLUCOSE [id number] 11:49:00* Test Item Value Reference Range Comments POC-GLUCOSE METER (BEAKER) (test ehnd=4722) 212 mg/dL 70-110 TESTED AT [address] [address] POCT-GLUCOSE [id number] 07:43:00* Test Item Value Reference Range Comments POC-GLUCOSE METER (BEAKER) (test yggt=5187) 130 mg/dL 70-110 TESTED AT [place] [id number] TROPONIN [id number] 07:21:00* Test Item Value Reference Range Comments TROPONIN I (BEAKER) (test mpco=557) 0.05 ng/mL 0.00-0.03 Troponin I (TnI) levels must be interpreted in the context of the presenting sym ptoms and the clinical findings. Elevated TnI levels indicate myocardial damage, but are not specific for ischemic heart disease. Elevated TnI levels are seen in patients with other cardiac conditions (including myocarditis and congestive h eart failure), and slight TnI elevations occur in patients with other conditions , including sepsis, renal failure, acidosis, acute neurological disease, and per sistent tachyarrhythmia.POCT-GLUCOSE [id number] 21:38:00* Test Item Value Reference Range Comments POC-GLUCOSE METER (BEAKER) (test theb=7112) 180 mg/dL 70-110 TESTED AT [address] [address] POCT-GLUCOSE [id number] 19:56:00* Test Item Value Reference Range Comments POC-GLUCOSE METER (BEAKER) (test lwnr=3966) 60 mg/dL 70-110 TESTED AT [place] [address] VITAMIN B12 AND [id number] 17:56:00* Test Item Value Reference Range Comments VITAMIN B12 (BEAKER) (test vjjs=387) 389 pg/mL 211-911 FOLATE (BEAKER) (test zwsu=505) 16.1 ng/mL >=5.4 This is a corrected result. 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-GLUCOSE [id number] 17:04:00* Test Item Value Reference Range Comments POC-GLUCOSE METER (BEAKER) (test nduz=4454) 153 mg/dL 70-110 TESTED AT [address] [address] POCT-GLUCOSE [id number] 11:20:00* Test Item Value Reference Range Comments POC-GLUCOSE METER (BEAKER) (test gsnk=8610) 266 mg/dL 70-110 TESTED AT [address] [address] POCT-GLUCOSE [id number] 09:46:00* Test Item Value Reference Range Comments POC-GLUCOSE METER (BEAKER) (test cina=3121) 188 mg/dL 70-110 TESTED AT [address] [address] POCT-GLUCOSE [id number] 07:54:00* Test Item Value Reference Range Comments POC-GLUCOSE METER (BEAKER) (test jnnb=2142) 153 mg/dL 70-110 TESTED AT [address] [address] [id number] 06:03:00* Test Item Value Reference Range Comments MAGNESIUM (BEAKER) (test wjsx=815) 1.8 mg/dL 1.6-2.6 BASIC METABOLIC [id number] 06:03:00* Test Item Value Reference Range Comments SODIUM (BEAKER) (test xhab=859) 139 meq/L 136-145 POTASSIUM (BEAKER) (test guta=120) 3.6 meq/L 3.5-5.1 CHLORIDE (BEAKER) (test wojh=627) 107 meq/L 98-107 CO2 (BEAKER) (test klva=135) 21 meq/L 22-29 BLOOD UREA NITROGEN (BEAKER) (test acap=727) 30 mg/dL 7-21 CREATININE (BEAKER) (test eomi=454) 1.22 mg/dL 0.57-1.25 GLUCOSE RANDOM (BEAKER) (test szfl=416) 148 mg/dL 70-105 CALCIUM (BEAKER) (test klcq=830) 9.1 mg/dL 8.4-10.2 EGFR (BEAKER) (test wumv=7157) 44 mL/min/1.73 sq m ESTIMATED GFR IS NOT ACCURATE CREATININE CLEARANCE IN PREDICTING GLOMERULAR FILTRATION RATE. ESTIMATED GFR IS NOT APPLICABLE FOR DIALYSIS PATIENTS. CBC W/PLT COUNT & AUTO [id number] 05:03:00* Test Item Value Reference Range Comments WHITE BLOOD CELL COUNT (BEAKER) (test xvjc=871) 7.9 K/ L 3.5-10.5 RED BLOOD CELL COUNT (BEAKER) (test ffuj=221) 3.45 M/ L 3.93-5.22 HEMOGLOBIN (BEAKER) (test cdrr=563) 11.6 GM/DL 11.2-15.7 HEMATOCRIT (BEAKER) (test mgua=458) 35.3 % 34.1-44.9 MEAN CORPUSCULAR VOLUME (BEAKER) (test cyoc=287) 102.3 fL 79.4-94.8 MEAN CORPUSCULAR HEMOGLOBIN (BEAKER) (test qzot=450) 33.6 pg 25.6-32.2 MEAN CORPUSCULAR HEMOGLOBIN CONC (BEAKER) (test pimo=148) 32.9 GM/DL 32.2-35.5 RED CELL DISTRIBUTION WIDTH (BEAKER) (test sicy=938) 12.7 % 11.7-14.4 PLATELET COUNT (BEAKER) (test gpgo=793) 214 K/CU MM 150-450 MEAN PLATELET VOLUME (BEAKER) (test koxv=981) 9.7 fL 9.4-12.3 NUCLEATED RED BLOOD CELLS (BEAKER) (test ygqf=323) 0 /100 WBC 0-0 NEUTROPHILS RELATIVE PERCENT (BEAKER) (test dhlv=666) 51 % LYMPHOCYTES RELATIVE PERCENT (BEAKER) (test rvob=640) 35 % MONOCYTES RELATIVE PERCENT (BEAKER) (test yvjc=770) 10 % EOSINOPHILS RELATIVE PERCENT (BEAKER) (test vdsp=815) 3 % BASOPHILS RELATIVE PERCENT (BEAKER) (test rpju=173) 1 % NEUTROPHILS ABSOLUTE COUNT (BEAKER) (test hhvx=869) 4.05 K/ L 1.56-6.13 LYMPHOCYTES ABSOLUTE COUNT (BEAKER) (test aprk=866) 2.74 K/ L 1.18-3.74 MONOCYTES ABSOLUTE COUNT (BEAKER) (test awra=068) 0.77 K/ L 0.24-0.36 EOSINOPHILS ABSOLUTE COUNT (BEAKER) (test mbgj=618) 0.27 K/ L 0.04-0.36 BASOPHILS ABSOLUTE COUNT (BEAKER) (test tehu=330) 0.09 K/ L 0.01-0.08 IMMATURE GRANULOCYTES-RELATIVE PERCENT (BEAKER) (test tzss=8060) 0 % 0-1 POCT-GLUCOSE [id number] 20:57:00* Test Item Value Reference Range Comments POC-GLUCOSE METER (BEAKER) (test cylp=6644) 321 mg/dL 70-110 Will Repeat Test/TESTED AT [address] [address] POCT-GLUCOSE [id number] 17:32:00* Test Item Value Reference Range Comments POC-GLUCOSE METER (BEAKER) (test npwx=9321) 214 mg/dL 70-110 TESTED AT [address] [address] MR, MRA, BRAIN, WITHOUT [id number] 15:08:00Reason for exam:->Ischemic Stroke EvaluationFINAL REPORT MRA brain and neck without contrast 03/28/2018 3:04 PM CLINICAL HISTORY: StrokeIschemic Stroke Evaluation COMPARISON: 11/02/2004 TECHNIQUE: Two- and three-dimensional vxlr-dk-lbuago MRA images of the intra- and extracranial [...] cervical internal carotid artery stenosis. Signed: Yoel Gupta Verified Date/Time: 03/28/2018 15:08:10 Reading Location: [facility] Radiology Reading Room , MRA, NECK, WITHOUT IV [id number] 15:08:00Reason for exam:->Ischemic Stroke EvaluationFINAL REPORT MRA brain and neck without contrast 03/28/2018 3:04 PM CLINICAL HISTORY: StrokeIschemic Stroke Evaluation COMPARISON: 11/02/2004 TECHNIQUE: Two- and three-dimensional iyyz-eb-jshaaj MRA images of the intra- and extracranial arterial vasculature was performed, from which maximal intensity projection 3-D reconstructions were created. FINDINGS: Patient motion limits these examinations. Pathology may be obscured. With this limitation mind, there is occlusion of the extracranial right vertebral artery. Thready flow related en hancement in the intracranial right vertebral artery suggests retrograde flow. T he remainder of the intracranial and extracranial arterial vasculature is patent . There is moderately occlusive atherosclerotic plaque in the left common caroti d artery. There is 25% stenosis in the proximal right cervical internal carotid artery (NASCET criteria). Flow is antegrade in the left vertebral artery. IMPRES SURESH: 1. Motion limited examination. 2. Extracranial right vertebral artery occl usion. 3. Moderate left common carotid and mild right cervical internal carotid artery stenosis. Signed: Yoel Gupta MDReport Verified Date/Time: 03/28/19 15:08:10 Reading Location: [facility] Radiology Reading Room [facility] all signed by: YOEL GUPTA M.D. on 03/28/2018 03:08 PM MR, BRAIN, WITHOUT [id number] 14:50:00Reason for exam:->Ischemic Stroke EvaluationFINAL REPORT MRI brain without contrast 03/28/2018 2:48 PM CLINICAL INDICATION: StrokeIschemic Stroke Evaluation TECHNIQUE: Multiplanar m patriziaquence MR imaging of the brain was performed utilizing the following imagi ng sequences: Axial T1, T2, FLAIR, GRE, and DWI; sagittal and coronal T1-weighte d images. COMPARISON: 11/02/2004 FINDINGS: Patient motion limits this examination . Pathology may be obscured. With this limitation mind, there is a punctate focu s of acute nonhemorrhagic ischemia in the left insular cortex. There is no acute infarct, hematoma, mass, hydrocephalus, or extra-axial collection. There are sm all chronic infarcts scattered throughout the cerebellum. There is mild chronic microvascular ischemia in the supratentorial white matter. Normal appearing flow -voids are present in the major intracranial vascular structures. The sellar and pineal regions and craniocervical junction are unremarkable. There is a right p hthisis bulbus. The face and skull base are unremarkable. IMPRESSION: 1. Motion limited examination. 2. Punctate acute nonhemorrhagic left insular cortex infarc t. 3. Chronic ischemic changes as discussed. Signed: Yoel Guptaort V erified Date/Time: 03/28/2018 14:50:48 Reading Location: [facility] Reading Room [id number] 13:20:00* Test Item Value Reference Range Comments RPR SCREEN (Our Family KitchenAKER) (test qakp=696) Nonreactive Nonreactive POCT-GLUCOSE [id number] 12:18:00* Test Item Value Reference Range Comments POC-GLUCOSE METER (BEAKER) (test pbrh=1410) 338 mg/dL 70-110 Notified FABI BOWERS/TESTED AT [address] [address] POCT-GLUCOSE [id number] 10:12:00* Test Item Value Reference Range Comments POC-GLUCOSE METER (BEAKER) (test xlmx=6061) 303 mg/dL 70-110 TESTED AT [address] [address] HEMOGLOBIN [id number] 09:28:00* Test Item Value Reference Range Comments HEMOGLOBIN A1C (BEAKER) (test sqvd=656) 7.9 % 4.3-6.1 POCT-GLUCOSE [id number] 07:44:00* Test Item Value Reference Range Comments POC-GLUCOSE METER (BEAKER) (test xwvo=5854) 306 mg/dL 70-110 TESTED AT [address] [address] TSH/FREE T4 IF [id number] 05:32:00* Test Item Value Reference Range Comments THYROID STIMULATING HORMONE (BEAKER) (test nxjz=141) 1.48 uIU/mL 0.35-4.94 [id number] 05:08:00* Test Item Value Reference Range Comments MAGNESIUM (BEAKER) (test gfiy=137) 1.6 mg/dL 1.6-2.6 BASIC METABOLIC [id number] 05:08:00* Test Item Value Reference Range Comments SODIUM (BEAKER) (test vghy=365) 136 meq/L 136-145 POTASSIUM (BEAKER) (test hhnq=400) 3.6 meq/L 3.5-5.1 CHLORIDE (BEAKER) (test dacp=200) 103 meq/L 98-107 CO2 (BEAKER) (test xsgf=607) 23 meq/L 22-29 BLOOD UREA NITROGEN (BEAKER) (test gjsk=489) 32 mg/dL 7-21 CREATININE (BEAKER) (test avtj=809) 1.41 mg/dL 0.57-1.25 GLUCOSE RANDOM (BEAKER) (test ized=222) 318 mg/dL 70-105 CALCIUM (BEAKER) (test zhxi=740) 9.3 mg/dL 8.4-10.2 EGFR (BEAKER) (test pugq=8130) 37 mL/min/1.73 sq m ESTIMATED GFR IS NOT ACCURATE CREATININE CLEARANCE IN PREDICTING GLOMERULAR FILTRATION RATE. ESTIMATED GFR IS NOT APPLICABLE FOR DIALYSIS PATIENTS. [id number] 05:05:00* Test Item Value Reference Range Comments MAGNESIUM (BEAKER) (test qgbp=475) 1.6 mg/dL 1.6-2.6 BASIC METABOLIC [id number] 05:05:00* Test Item Value Reference Range Comments SODIUM (BEAKER) (test eies=932) 136 meq/L 136-145 POTASSIUM (BEAKER) (test epdp=506) 3.6 meq/L 3.5-5.1 CHLORIDE (BEAKER) (test hfbv=369) 103 meq/L 98-107 CO2 (BEAKER) (test xuft=742) 26 meq/L 22-29 BLOOD UREA NITROGEN (BEAKER) (test yvem=633) 33 mg/dL 7-21 CREATININE (BEAKER) (test mkdd=225) 1.40 mg/dL 0.57-1.25 GLUCOSE RANDOM (BEAKER) (test uqzl=136) 320 mg/dL 70-105 CALCIUM (BEAKER) (test orej=460) 9.3 mg/dL 8.4-10.2 EGFR (BEAKER) (test giil=8714) 37 mL/min/1.73 sq m ESTIMATED GFR IS NOT ACCURATE CREATININE CLEARANCE IN PREDICTING GLOMERULAR FILTRATION RATE. ESTIMATED GFR IS NOT APPLICABLE FOR DIALYSIS PATIENTS. LIPID [id number] 05:05:00* Test Item Value Reference Range Comments TRIGLYCERIDES (BEAKER) (test vxya=470) 215 mg/dL CHOLESTEROL (BEAKER) (test ligt=908) 136 mg/dL HDL CHOLESTEROL (BEAKER) (test ylxg=723) 42 mg/dL LDL CHOLESTEROL CALCULATED (BEAKER) (test jcmf=636) 51 mg/dL Triglyceride Reference Range: Low Risk <150 Borderline 150-199 High Risk 200-499 Very High Risk >=500Cholesterol Reference Range: Low Risk <200 Borderline 200-239 High Risk >240HDL Cholesterol Reference Range: Low Risk >=60 High Risk <40LDL Cholesterol Reference Range: Optimal <100 Near Optimal 100-129 Borderline 130-159 High 160-189 Very High >=190 C- REACTIVE [id number] 05:05:00* Test Item Value Reference Range Comments C-REACTIVE PROTEIN (BEAKER) (test vqzy=656) 0.22 mg/dL 0.00-0.50 CBC W/PLT COUNT & AUTO [id number] 04:38:00* Test Item Value Reference Range Comments WHITE BLOOD CELL COUNT (BEAKER) (test mfgb=289) 8.6 K/ L 3.5-10.5 RED BLOOD CELL COUNT (BEAKER) (test luad=897) 3.53 M/ L 3.93-5.22 HEMOGLOBIN (BEAKER) (test ifyk=608) 11.7 GM/DL 11.2-15.7 HEMATOCRIT (BEAKER) (test eomm=116) 35.2 % 34.1-44.9 MEAN CORPUSCULAR VOLUME (BEAKER) (test ecll=730) 99.7 fL 79.4-94.8 MEAN CORPUSCULAR HEMOGLOBIN (BEAKER) (test myim=694) 33.1 pg 25.6-32.2 MEAN CORPUSCULAR HEMOGLOBIN CONC (BEAKER) (test lbjv=124) 33.2 GM/DL 32.2-35.5 RED CELL DISTRIBUTION WIDTH (BEAKER) (test nlbu=942) 12.7 % 11.7-14.4 PLATELET COUNT (BEAKER) (test btah=558) 238 K/CU MM 150-450 MEAN PLATELET VOLUME (BEAKER) (test oxzg=871) 9.6 fL 9.4-12.3 NUCLEATED RED BLOOD CELLS (BEAKER) (test pglf=524) 0 /100 WBC 0-0 NEUTROPHILS RELATIVE PERCENT (BEAKER) (test nqlf=462) 69 % LYMPHOCYTES RELATIVE PERCENT (BEAKER) (test itzk=069) 20 % MONOCYTES RELATIVE PERCENT (BEAKER) (test vrbt=908) 8 % EOSINOPHILS RELATIVE PERCENT (BEAKER) (test jczz=004) 2 % BASOPHILS RELATIVE PERCENT (BEAKER) (test nhgs=703) 1 % NEUTROPHILS ABSOLUTE COUNT (BEAKER) (test eybl=303) 5.91 K/ L 1.56-6.13 LYMPHOCYTES ABSOLUTE COUNT (BEAKER) (test lskc=123) 1.73 K/ L 1.18-3.74 MONOCYTES ABSOLUTE COUNT (BEAKER) (test enos=165) 0.72 K/ L 0.24-0.36 EOSINOPHILS ABSOLUTE COUNT (BEAKER) (test zpyk=148) 0.15 K/ L 0.04-0.36 BASOPHILS ABSOLUTE COUNT (BEAKER) (test uhqx=013) 0.07 K/ L 0.01-0.08 IMMATURE GRANULOCYTES-RELATIVE PERCENT (BEAKER) (test krdg=2578) 0 % 0-1 CT, BRAIN/STROKE [id number] 21:33:00FINAL REPORT CT Head without contrast CLINICAL HISTORY: [...] prior earlier procedure. There is periventricular and sub cortical white matter hypodensity which is nonspecific but compatible with chron ic microvascular ischemic change. There are atherosclerotic calcifications of th e intracranial circulation. There is generalized parenchymal volume loss without hydrocephalus, midline shift, or apparent mass effect. There are no extra-axial fluid collections. The skull is intact. The paranasal sinuses are well-aerated. Calcifications /postprocedural changes of the right globe. IMPRESSION: There is no CT evidence of acute infarct or intracranial hemorrhage. If persistent clini [place] concern for acute intracranial abnormality/stroke recommend further evaluati on with MRI brain. Ischemic and involutional changes as described above. The fin dings were discussed with the in-house neurology stroke resident at 03/27/2018, 2 130 hours Signed: Merly Renteria Verified Date/Time: 03/27/2018 2 1:33:33 Reading Location: [address] Transitional Reading Room -GLUCOSE METER 2018-03-27 20:51:00* Test Item Value Reference Range Comments POC-GLUCOSE METER (BEAKER) (test xulm=0605) 282 mg/dL 70-110 TESTED AT [address] [address] POCT-GLUCOSE [id number] 09:08:00* Test Item Value Reference Range Comments POC-GLUCOSE METER (BEAKER) (test ampz=7421) 130 mg/dL 70-110 TESTED AT [place] [id number] [facility] [address] CHEST SINGLE (PORTABLE)2018-01-14 20:39:00 [place] [address] Patient Name: HAWK HAGER MR #: [id number] : 1950 Age/Sex: 67/F Req #: [id number] Adm Physician: TG WATTS MD Ordered by: JOSELUIS NELSON MD Report #: [id number] Location: [facility] Room/Bed: [place] [address] Procedure: 1105-0 066 DX/CHEST SINGLE (PORTABLE) Exam Date: 01/14/18 E xaalvarez Time: 2017 REPORT STATUS: Dior d EXAMINATION: CHEST SINGLE (PORTABLE) INDICATION: Chest pain COMPARISON: None FINDINGS: TUBES and LINES: None. LUNG S: Lungs are well inflated. Lungs are clear. There is no evidence of pneum onia or pulmonary edema. PLEURA: No pleural effusion or pneumothorax. HEART AND MEDIASTINUM: The cardiomediastinal silhouette is unremarkable. BONES AND SOFT TISSUES: No acute osseous lesion. Soft tissues are unrema rkable. UPPER ABDOMEN: No free air under the diaphragm. IMPRESSION : No acute thoracic abnormality. Signed by: Dr. Connie Miller M.D. on 01/14/2018 8:41 PM Dictated By: CONNIE MILLER MD, MD [id number] Transcribed By: ASHLIE on 01/14/18 2 041 COPY TO: JOSELUIS NELSON MD
[2018-05-04] MEDS ORDERED: NITROGLYCERIN 2% OINT 1 GM PKT TOP ONE (11:15)
[2018-05-04] MEDS ORDERED: ASPIRIN 81 MG CHEW TAB PO ONE ×2 (11:30→13:15)
[2018-05-04 11:39] LABS: BASOPHILS % 0.6 % (0.0-1.0); EOSINOPHILS # (AUTO) 0.2 (0.0-0.4); HEMATOCRIT 39.8 % (34.2-44.1); HEMOGLOBIN 13.1 g/dL (12.0-16.0); LYMPHOCYTES # (AUTO) 1.4 (1.0-3.2); LYMPHOCYTES % 20.4 % (18.0-39.1); MEAN CORPUSCULAR HGB CONC 32.9 g/dL (31-35); MEAN CORPUSCULAR VOLUME 100.3 fL (81-99); MONOCYTES # (AUTO) 0.4 (0.2-0.8); MONOCYTES % 6.3 % (4.4-11.3); NEUTROPHILS # (AUTO) 4.9 (2.1-6.9); NEUTROPHILS % 69.6 % (38.7-80.0); PLATELET COUNT 258 x10e3/uL (140-360); RED BLOOD COUNT 3.97 x10e6/uL (3.6-5.1); RED CELL DISTRIBUTION WIDTH 12.9 % (11.7-14.4)
[2018-05-04 11:49] LABS: INR 0.95; PROTHROMBIN TIME 13.5 seconds (11.9-14.5)
[2018-05-04 11:50] LABS: PARTIAL THROMBOPLASTIN TIME 29.7 seconds (23.8-35.5)
--- NOTE | 2018-05-04 11:57 | Diagnostic Imaging Report ---
EXAMINATION: CHEST SINGLE (PORTABLE) INDICATION: Chest pain COMPARISON: Chest radiograph 01/14/2018. FINDINGS: TUBES and LINES: None. LUNGS: Lungs are well inflated. Lungs are clear. There is no evidence of pneumonia or pulmonary edema. PLEURA: No pleural effusion or pneumothorax. HEART AND MEDIASTINUM: The cardiomediastinal silhouette is unremarkable. Atherosclerotic calcifications of the aortic arch. BONES AND SOFT TISSUES: No acute osseous lesion. Soft tissues are unremarkable. UPPER ABDOMEN: No free air under the diaphragm. IMPRESSION: No acute radiographic abnormality. Signed by: Dr. Derek Baig MD on 05/04/2018 11:54 AM
[2018-05-04 11:58] LABS: ALBUMIN 3.7 g/dL (3.5-5.0); ALBUMIN/GLOBULIN RATIO 1.3 (0.8-2.0); ANION GAP 12.6 mmol/L (8-16); CALCIUM 9.5 mg/dL (8.4-10.2); CREATININE, SERUM 1.38 mg/dL (0.57-1.11); POTASSIUM 3.6 mmol/L (3.5-5.1)
[2018-05-04 12:18] LABS: CREATINE KINASE MB 3.9 ng/mL (0-5.0); THYROID STIMULATING HORMONE 1.041 uIU/mL (0.350-4.940)
[2018-05-04 12:19] LABS: CLARITY,URINE HAZY (CLEAR); COLOR,URINE YELLOW (YELLOW)
[2018-05-04 12:20] LABS: BILIRUBIN,URINE NEGATIVE (NEGATIVE); KETONES,URINE TRACE (NEGATIVE); LEUKOCYTE ESTERASE ,URINE TRACE (NEGATIVE); NITRITE,URINE NEGATIVE (NEGATIVE); PROTEIN,URINE DIPSTICK 2+ (NEGATIVE); URINE UROBILINOGEN 0.2 mg/dL (0.2 - 1)
[2018-05-04 12:27] LABS: BACTERIA,URINE FEW /HPF; EPITHELIAL CELLS,URINE FEW /LPF; RBC,URINE 0-5 /HPF (0-5)
[2018-05-04] MEDS ORDERED: CEFTRIAXONE SOD 1 GM VIAL IV ONE (12:45)
[2018-05-04] MEDS ORDERED: CEFTRIAXONE SOD 1 GM/NS 50 ML 50 ML IV ONE (13:00)
[2018-05-04] MEDS ORDERED: ONDANSETRON HCL INJ 2MG/ML 2ML 2 MG/ML VIAL IV NR (13:00)
[2018-05-04] MEDS ORDERED: DEXTROSE 50% SYRINGE 50 ML IV PRN (13:15)
[2018-05-04] MEDS ORDERED: NITROGLYCERIN 0.4 MG SUBL SL PRN (13:15)
[2018-05-04] MEDS ORDERED: ONDANSETRON HCL INJ 2MG/ML 2ML 2 MG/ML VIAL IV PRN (13:15)
--- NOTE | 2018-05-04 14:00 | NUR ---
received pt via WC, accompanied by daughter. denies pain, denies CP at this time. resp even and unlabored. oriented to room and use of call light. snacks provided as pt reports being hungry also informed her dinner will be brought in at 430pm. call light placed within reach and instructed to call for assistance. tele box #[address].
--- OUTSIDE RECORDS SUMMARY | 2018-05-04 14:07 | XMS REPORT | Clinical Summary ---
Author Author MILAGRO [facility] Address Unknown Phone Unavailable Care Team Providers Care Propeller Tester Name Role Phone Pcp, No PCP Unavailable [...] artery disease) Angina pectoris Overview: ICD9 DX Steel Layer DM (diabetes mellitus) S/P angioplasty with stent [...] mellitus with other neurologic complication, unspecified whether detention insulin use (HCC); Hypertension, unspecified type; Mixed [...] Taken Vital Sign Reading 04/01/2018 10:53 AM [facility] Blood Pressure 135/62 04/01/2018 10:53 AM [facility] Pulse 95 04/01/2018 10:53 AM [facility] Temperature 35.7 C (96.3 F) 04/01/2018 10:53 AM [facility] Respiratory Rate 15 04/01/2018 10:53 AM [facility] Oxygen Saturation 96% - Inhaled Oxygen - Concentration 03/27/2018 7:24 AM [facility] Weight 82.5 kg (181 lb 14.4 oz) 03/27/2018 7:24 AM [facility] Height 157.5 cm (5' 2") 03/27/2018 7:24 AM [facility] Body Mass Index 33.27 Plan of Treatment Not on file Implants Device Identifier Shelf Expiration Date Model / Serial / Lot Implanted Type 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 [employer] Iliac [employer] Implanted: Qty: 1 on 07/06/2015 05/12/2018 [id number] / / [id number] [employer] Iliac / Biliary [employer] Implanted: Qty: 1 on 07/06/2015 SCIENTIFIC 05/10/2018 [id number] / / [id number] [employer] Iliac / Biliary / Rt. [employer] Ili[employer] Implanted: Qty: 1 on 07/06/2015 Procedures Comments Procedure Name Priority Date/Time Associated Diagnosis REPORT OF PROCEDURE - 04/22/2018 ENDOSCOPY SCAN 8:00 AM [facility] CARDIAC CATH REPORT - 04/22/2018 SCAN 8:00 AM [facility] VASCULAR DIAGRAM -SCAN 04/22/2018 8:00 AM [facility] RHYTHM STRIP - SCAN 04/22/2018 8:00 AM [facility] POCT-GLUCOSE METER Routine 04/01/2018 1:38 PM [facility] POCT-GLUCOSE METER Routine 04/01/2018 7:17 AM [facility] BASIC METABOLIC PANEL (7) Routine 04/01/2018 5:30 AM [facility] POCT-GLUCOSE METER Routine 03/31/2018 10:04 PM [facility] POCT-GLUCOSE METER Routine 03/31/2018 5:26 PM [facility] POCT-GLUCOSE METER Routine 03/31/2018 12:56 PM [facility] NM CARDIAC PET PERFUSION STAT 03/31/2018 REST AND/OR STRESS 12:25 PM [facility] TREADMILL Routine 03/31/2018 TOLERANCE(NON-NUCLEAR 12:17 PM [facility] TREADMILL) POCT-GLUCOSE METER Routine 03/31/2018 8:42 AM [facility] POCT-GLUCOSE METER Routine 03/30/2018 9:12 PM [facility] POCT-GLUCOSE METER Routine 03/30/2018 5:04 PM [facility] POCT-GLUCOSE METER Routine 03/30/2018 11:41 AM [facility] TROPONIN I Routine 03/30/2018 11:39 AM [facility] POCT-GLUCOSE METER Routine 03/30/2018 7:12 AM [facility] TROPONIN I Routine 03/30/2018 5:22 AM [facility] POCT-GLUCOSE METER Routine 03/29/2018 9:24 PM [facility] ECG 12-LEAD Routine 03/29/2018 8:31 PM [facility] Procedure Note - Interface, External Ris In - 03/29/2018 8:46 PM [facility] Ventricula r Rate 87 BPM Atrial Rate 87 BPM P-R Interval 198 ms QRS Duration 98 ms Q-T Interval 404 ms QTC Calculatio n(Bazett) 486 ms P Labadie 10 degrees R Labadie -52 degrees T Labadie 6 degrees Normal sinus rhythm Left anterior fascicular block Abnormal ECG When compared with ECG of 9 10:14, Vent. rate has increased BY 31 BPM QT has lengthened ECG 12-LEAD Routine 03/29/2018 8:31 PM [facility] POCT-GLUCOSE METER Routine 03/29/2018 7:52 PM [facility] VENOUS DOPPLER LEGS FARIDA 03/29/2018 BILATERAL 5:56 PM [facility] POCT-GLUCOSE METER Routine 03/29/2018 4:57 PM [facility] POCT-GLUCOSE METER Routine 03/29/2018 11:18 AM [facility] POCT-GLUCOSE METER Routine 03/29/2018 9:44 AM [facility] 2D ECHO W/ DOPPLER Routine 03/29/2018 (CW/PW/COLOR) 8:33 AM [facility] POCT-GLUCOSE METER Routine 03/29/2018 7:22 AM [facility] CBC W/PLT COUNT & AUTO Routine 03/29/2018 DIFFERENTIAL 4:11 AM [facility] CBC W/PLT COUNT & AUTO Routine 03/29/2018 DIFFERENTIAL 4:11 AM [facility] MAGNESIUM Routine 03/29/2018 4:11 AM [facility] BASIC METABOLIC PANEL (7) Routine 03/29/2018 4:11 AM [facility] POCT-GLUCOSE METER Routine 03/28/2018 8:41 PM [facility] POCT-GLUCOSE METER Routine 03/28/2018 5:23 PM [facility] MR BRAIN WITHOUT IV Routine 03/28/2018 CONTRAST 3:08 PM [facility] MR MRA NECK WITHOUT IV Routine 03/28/2018 CONTRAST 3:08 PM [facility] MR MRA HEAD WITHOUT Routine 03/28/2018 CONTRAST 3:08 PM [facility] POCT-GLUCOSE METER Routine 03/28/2018 12:13 PM [facility] POCT-GLUCOSE METER Routine 03/28/2018 10:11 AM [facility] POCT-GLUCOSE METER Routine 03/28/2018 7:41 AM [facility] CBC W/PLT COUNT & AUTO Routine 03/28/2018 DIFFERENTIAL 4:17 AM [facility] C-REACTIVE PROTEIN Routine 03/28/2018 4:17 AM [facility] CBC W/PLT COUNT & AUTO Routine 03/28/2018 DIFFERENTIAL 4:17 AM [facility] MAGNESIUM Routine 03/28/2018 4:17 AM [facility] MAGNESIUM Routine 03/28/2018 4:17 AM [facility] BASIC METABOLIC PANEL (7) Routine 03/28/2018 4:17 AM [facility] BASIC METABOLIC PANEL (7) Routine 03/28/2018 4:17 AM [facility] RPR Routine 03/28/2018 4:17 AM [facility] VITAMIN B12 AND FOLATE AP Routine 03/28/2018 4:17 AM [facility] TSH/FREE T4 IF INDICATED Routine 03/28/2018 4:17 AM [facility] HEMOGLOBIN A1C Routine 03/28/2018 4:17 AM [facility] LIPID PANEL Routine 03/28/2018 4:17 AM [facility] CT BRAIN/STROKE TEST STAT 03/27/2018 DESIGN 9:19 PM [facility] POCT-GLUCOSE METER Routine 03/27/2018 8:47 PM [facility] ABD AO & LOWER EXT 03/27/2018 Atherosclerosis of [place] ANGIOS/ POSS PPI 12:16 PM [facility] artery of both lower extremities with intermittent claudication (HCC) Case Notes (4) CASE POP6 ECG 12-LEAD Routine 03/27/2018 10:14 AM [facility] Procedure Note - Interface, External Ris In - 03/27/2018 12:08 PM [facility] Ventricula r Rate 56 BPM Atrial Rate 56 BPM P-R Interval 196 ms QRS Duration 100 ms Q-T Interval 448 ms QTC Calculatio n(Bazett) 432 ms P Labadie 19 degrees R Labadie -35 degrees T Labadie 44 degrees Sinus bradycardi a Left axis deviation Abnormal ECG No previous ECGs available ECG 12-LEAD Routine 03/27/2018 10:14 AM [facility] POCT-GLUCOSE METER Routine 03/27/2018 9:06 AM [facility] after 05/03/2017 Results * EKG-SCANNED (04/22/2018 8:00 AM [facility]) Narrative Performed At * CARDIAC CATH REPORT - SCAN (04/22/2018 8:00 AM [facility]) Narrative Performed At * VASCULAR DIAGRAM -SCAN (04/22/2018 8:00 AM [facility]) Narrative Performed At * RHYTHM STRIP - SCAN (04/22/2018 8:00 AM [facility]) Narrative Performed At * POC-Glucose meter (04/01/2018 1:38 PM [facility]) Only the most recent of 23 results within the time period is included. POC-Glucose Meter 262 (H)Comment: TESTED AT 70 - 110 mg/dL [facility] [address] [facility] [id number] Specimen Blood Performing Organization Address City/State/Zipcode Phone Number [facility] [address] [place] [address] [facility] * Basic Metabolic Panel (04/01/2018 5:30 AM [facility]) Only the most recent of 4 results within the time period is included. Sodium 135 (L) 136 - 145 meq/L [facility] Potassium 4.0 3.5 - 5.1 meq/L [facility] Chloride 105 98 - 107 meq/L [facility] CO2 23 22 - 29 meq/L [facility] BUN 26 (H) 7 - 21 mg/dL [facility] Creatinine 1.38 (H) 0.57 - 1.25 mg/dL [facility] Glucose 263 (H) 70 - 105 mg/dL [facility] Calcium 9.1 8.4 - 10.2 mg/dL [facility] EGFR 38Comment: ESTIMATED GFR IS mL/min/1.73 sq m [facility] NOT ACCURATE CREATININE [facility] CLEARANCE IN PREDICTING GLOMERULAR FILTRATION RATE. ESTIMATED GFR IS NOT APPLICABLE FOR DIALYSIS PATIENTS. Specimen Blood - Arm, Left Performing Organization Address City/State/Zipcode Phone Number [facility] [address] [place] [address] [facility] * NM myocardial perfusion PET (rest and stress) (03/31/2018 12:25 PM [facility]) Narrative Performed At FINAL REPORT [facility] PROCEDURE:Rest/Stress MYOCARDIAL PERFUSION PET with regadenoson\\XA9\\ CPT CODE:38711 INDICATION:Chest pain HISTORY:Cardiac risk factors: Known CAD, [...] tracer distribution is normal.6. Compared to previous [facility] study on 11/29/2005 was normal.. Signed: Dano De La Torre MD Report Verified Date/Time:03/31/2018 14:07:02 Procedure Note Interface, External Ris In - 03/31/2018 2:09 PM [facility] FINAL REPORT PROCEDURE: Rest/Stress MYOCARDIAL PERFUSION PET with regadenoson\\XA9\\ CPT CODE: 56127 INDICATION: Chest pain HISTORY: Cardiac risk factors: [...] distribution is normal. 6. Compared to previous [facility] study on 11/29/2005 was normal.. Signed: Dano De La Torre MD Report Verified Date/Time: 03/31/2018 14:07:02 Performing Organization Address City/State/Zipcode Phone Number GE RIS * Treadmill tolerance(Non-Nuclear Treadmill) (03/31/2018 12:17 PM [facility]) Narrative Performed At Protocol Name RegNetskopeoson [place] [employer] Time In Exercise Phase 00:01:00 Max. Systolic BP 149 mmHg Max Diastolic BP 35 mmHg Max Heart Rate 98 BPM Max Predicted Heart Rate 151 BPM Reason For Termination Predetermined end point Reason for Test Chest Pain Target HR Formula (220 - Age)*100% Arrhythmias 1st deg AV Block Resting ECG Normal sinus rhythm Left Labadie Deviation ST Changes No Significant Changes Overall Impression Indeterminate due to pharmacological stress Chest Pain Chest Tightness Max 10/10 HR Response To Exercise BP Response To Exercise ASA plavix ATENOLOL Atorvastatin NPH Insulin Confirmed by fellow Mike Cm ([id number]) on 04/01/2018 9:48:09 AM Confirmed by MD DE LA ROSA JORGE ([id number]) on 04/12/2018 1:38:08 PM Procedure Note Interface, External Ris In - 04/12/2018 1:38 PM [facility] Protocol Name Adam Time In Exercise Phase 00:01:00 Max. Systolic BP 149 mmHg Max Diastolic BP 35 mmHg Max Heart Rate 98 BPM Max Predicted Heart Rate 151 BPM Reason For Termination Predetermined end point Reason for Test Chest Pain Target HR Formula (220 - Age)*100% Arrhythmias 1st deg AV Block Resting ECG Normal sinus rhythm Left Labadie Deviation ST Changes No Significant Changes Overall Impression Indeterminate due to pharmacological stress Chest Pain Chest Tightness Max 10/10 HR Response To Exercise BP Response To Exercise ASA plavix ATENOLOL Atorvastatin NPH Insulin Confirmed by fellow Mike Cm ([id number]) on 04/01/2018 9:48:09 AM Confirmed by MD DE LA ROSA JORGE ([id number]) on 04/12/2018 1:38:08 PM Performing Organization Address City/State/[facility] Phone Number [place] [facility] * Troponin I (03/30/2018 11:39 AM [facility]) Only the most recent of 2 results within the time period is included. Troponin I 0.02 0.00 - 0.03 ng/mL [facility] Specimen Blood - Arm, Left Narrative Performed At Troponin I (TnI) levels must be interpreted in the context of the presenting [facility] symptoms and the clinical findings. Elevated TnI levels indicate myocardial [facility] damage, but are not specific for ischemic heart disease. Elevated TnI levels are seen in patients with other cardiac conditions (including myocarditis and congestive heart failure), and slight TnI elevations occur in patients with other conditions, including sepsis, renal failure, acidosis, acute neurological disease, and persistent tachyarrhythmia. Performing Organization Address City/State/Zipcode Phone Number [place] [phone] [place] [address] [facility] * ECG 12 lead (03/29/2018 8:31 PM [facility]) Only the most recent of 2 results within the time period is included. Narrative Performed At Ventricular Rate 87 BPM GE MUSE Atrial Rate 87 BPM P-R Interval 198 ms QRS Duration 98 ms Q-T Interval 404 ms QTC Calculation(Bazett) 486 ms P Labadie 10 degrees R Labadie -52 degrees T Labadie 6 degrees Normal sinus rhythm Left anterior fascicular block Abnormal ECG When compared with ECG of 27-MAR-2018 10:14, Vent. rate has increased BY31 BPM QT has lengthened Confirmed by MD MONTGOMERY D. RICHARD ([id number]) on 03/30/2018 9:35:22 AM Procedure Note Interface, External Ris In - 03/30/2018 9:35 AM [facility] Ventricular Rate 87 BPM Atrial Rate 87 BPM P-R Interval 198 ms QRS Duration 98 ms Q-T Interval 404 ms QTC Calculation(Bazett) 486 ms P Labadie 10 degrees R Labadie -52 degrees T Labadie 6 degrees Normal sinus rhythm Left anterior fascicular block Abnormal ECG When compared with ECG of 27-MAR-2018 10:14, Vent. rate has increased BY 31 BPM QT has lengthened Confirmed by MD MONTGOMERY D. RICHARD ([id number]) on 03/30/2018 9:35:22 AM Performing Organization Address City/State/Zipcode Phone Number [place] [facility] * Venous doppler legs bilateral (03/29/2018 5:56 PM [facility]) Ejection Fraction [facility]ART[facility] MKCKESSON CPACS Impressions Performed At Right Impression [facility] 1. There is no deep venous obstruction in the common femoral, profunda [facility] femoral, femoral, popliteal, posterior tibial or peroneal [...] PV LAB - Lower Extremities DVT Study [facility] Demographics CKESSON [facility] Patient Name CARINA HAGER Date of Study03/29/2018 LITO [id number] Age68 Visit Number [id number] Gender Female Accession Number [id number] Date of Birth1950 [facility] [id number] [facility] SonographerHeather Carri Dan, Interpreting Selam Sanchez, [...] External Ris In - 03/30/2018 8:55 AM [facility] PV LAB - Lower Extremities DVT Study Demographics Patient Name CARINA HAGER Date of Study 03/29/2018 LITO Age 68 Visit Number [id number] Gender Female Accession Number [id number] Date of 1950 Referring [facility] Room Number 2443 Physician Fernanda Mail Teller Ashlee Dan, Interpreting Selam Sanchez RVT Physician [...] cm Performing Organization Address City/State/Zipcode Phone Number [facility] * 2D Echo W/Doppler(CW/PW/Color) (03/29/2018 8:33 AM [facility]) Ejection Fraction [facility] Narrative Performed At Transthoracic Echocardiography Report (TTE) [facility] [address] HEARTMarvin Demographics [facility] Patient Name CARINA HAGER Date of Study 03/29/2018 LITO [id number] GenderFemale Visit Number [id number] [facility] [id number] Number [id number] Number Date of Birth1950 Referring Physician Reginaldo Grant MD Age68 year(s) Mail Teller Lucio Sotomayor AnalystAlex Neetu Dang MD Physician Procedure Type of Study TTE procedure:2DECHO W DOPPLER(CW/PW/COLOR) Indications:Stroke work up. 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 Height: 62 inches [...] External Ris In - 03/29/2018 1:13 PM [facility] Transthoracic Echocardiography Report (TTE) Demographics Patient Name CARINA HAGER Date of Study 03/29/2018 LITO Gender Female Visit Number [id number] Race Unknown Room Number 2443 Number Date of 1950 Referring Physician Reginaldo Grant MD Age 68 year(s) Mail Teller Lucio Sotomayor [employer] Associate Yury Ward Interpreting Adriana Dang MD Physician Procedure Type of Study TTE procedure:2DECHO W DOPPLER(CW/PW/COLOR) Indications:Stroke work up. 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 Height: 62 inches [...] City/State/Zipcode Phone Number [facility]ART[facility] MKCKESSON [facility] * CBC with platelet count + automated diff (03/29/2018 4:11 AM [facility]) Only the most recent of 2 results within the time period is included. WBC 7.9 3.5 - 10.5 K/L [facility] RBC 3.45 (L) 3.93 - 5.22 M/L [facility] Hemoglobin 11.6 11.2 - 15.7 GM/DL [facility] Hematocrit 35.3 34.1 - 44.9 % [facility] MCV 102.3 (H) 79.4 - 94.8 fL [facility] MCH 33.6 (H) 25.6 - 32.2 pg [facility] MCHC 32.9 32.2 - 35.5 GM/DL [facility] RDW 12.7 11.7 - 14.4 % [facility] Platelets 214 150 - 450 K/CU MM [facility] MPV 9.7 9.4 - 12.3 fL [facility] nRBC 0 0 - 0 /100 WBC [facility] % Neutros 51 % [facility] % Lymphs 35 % [facility] % Monos 10 % [facility] % Eos 3 % [facility] % Baso 1 % [facility] # Neutros 4.05 1.56 - 6.13 K/L [facility] # Lymphs 2.74 1.18 - 3.74 K/L [facility] # Monos 0.77 (H) 0.24 - 0.36 K/L [facility] # Eos 0.27 0.04 - 0.36 K/L [facility] # Baso 0.09 (H) 0.01 - 0.08 K/L [facility] Immature 0 0 - 1 % [facility] Granulocytes-[facility] Specimen Blood Performing Organization Address City/State/Zipcode Phone Number [facility] [address] [place] [address] [facility] * Magnesium (03/29/2018 4:11 AM [facility]) Only the most recent of 3 results within the time period is included. Magnesium 1.8 1.6 - 2.6 mg/dL [facility] Specimen Blood Performing Organization Address City/State/Zipcode Phone Number [facility] [address] [place] [address] [facility] * MR brain without IV contrast (03/28/2018 3:08 PM [facility]) Narrative Performed At FINAL REPORT [facility] MRI brain without contrast 03/28/2018 2:48 PM [...] MD Report Verified Date/Time:03/28/2018 14:50:48 Reading Location: [facility] Radiology Reading Room Procedure Note Interface, External Ris In - 03/28/2018 3:08 PM [facility] FINAL REPORT MRI brain without contrast 03/28/2018 [...] Report Verified Date/Time: 03/28/2018 14:50:48 Reading Location: [facility] Radiology Reading Room Performing Organization Address City/State/Zipcode Phone Number GE RIS * MRA neck without IV contrast (03/28/2018 3:08 PM [facility]) Narrative Performed At FINAL REPORT [facility] MRA brain and neck without contrast 03/28/2018 3:04 PM CLINICAL HISTORY: Stroke Ischemic Stroke Evaluation COMPARISON: 11/02/2004 TECHNIQUE: Two- and three-dimensional fhlo-pu-lxwpor MRA images of the intra- and extracranial [...] MD Report Verified Date/Time:03/28/2018 15:08:10 Reading Location: [facility] Radiology Reading Room Procedure Note Interface, External Ris In - 03/28/2018 3:10 PM [facility] FINAL REPORT MRA brain and neck without contrast 03/28/2018 3:04 PM CLINICAL HISTORY: Stroke Ischemic Stroke Evaluation COMPARISON: 11/02/2004 TECHNIQUE: Two- and three-dimensional tdef-an-[id number] MRA images of the intra- and extracranial [...] Report Verified Date/Time: 03/28/2018 15:08:10 Reading Location: [facility] Radiology Reading Room Performing Organization Address City/State/Zipcode Phone Number GE RIS * MRA head without IV contrast (03/28/2018 3:08 PM [facility]) Narrative Performed At FINAL REPORT [place] RIS MRA brain and neck without contrast 03/28/2018 3:04 PM CLINICAL HISTORY: Stroke Ischemic Stroke Evaluation COMPARISON: 11/02/2004 TECHNIQUE: Two- and three-dimensional yoqo-dv-[id number] MRA images of the intra- and extracranial [...] MD Report Verified Date/Time:03/28/2018 15:08:10 Reading Location: [facility] Radiology Reading Room Procedure Note Interface, External Ris In - 03/28/2018 3:10 PM [facility] FINAL REPORT MRA brain and neck without contrast 03/28/2018 3:04 PM CLINICAL HISTORY: Stroke Ischemic Stroke Evaluation COMPARISON: 11/02/2004 TECHNIQUE: Two- and three-dimensional ninz-vf-ichzsr MRA images of the intra- and extracranial [...] Report Verified Date/Time: 03/28/2018 15:08:10 Reading Location: [facility] Radiology Reading Room Performing Organization Address [facility] Phone Number [facility] * Vitamin B12 and Folate (03/28/2018 4:17 AM [facility]) Vitamin B12 389 211 - 911 pg/mL [facility] Folate 16.1Comment: This is a >=5.4 ng/mL [facility] corrected result. Previous result was 14.3 ng/mL on 03/28/2018 at 1050 [facility] Specimen Blood Performing Organization Address [facility] Phone Number [employer] [facility] [facility] [place] [address] [facility] [address] [place] [id number] * TSH/Free T4 If Indicated (03/28/2018 4:17 AM [facility]) TSH 1.48 0.35 - 4.94 uIU/mL [facility] Specimen Blood Performing Organization Address City/State/Zipcode Phone Number [address] * C-Reactive Protein (03/28/2018 4:17 AM [facility]) CRP 0.22 0.00 - 0.50 mg/dL [facility] Specimen Blood Performing Organization Address City/State/Zipcode Phone Number [address] * RPR (03/28/2018 4:17 AM [facility]) RPR Nonreactive Nonreactive [facility] Specimen Blood Performing Organization Address City/[facility]/Zipcode Phone Number [address] * Hemoglobin A1c (03/28/2018 4:17 AM [facility]) Hemoglobin A1C 7.9 (H) 4.3 - 6.1 % [facility] Specimen Blood Performing Organization Address City/[facility]/Zipcode Phone Number [address] * Lipid panel (03/28/2018 4:17 AM [facility]) Triglycerides 215 mg/dL [facility] Cholesterol 136 mg/dL [facility] HDL 42 mg/dL [facility] LDL Calculated 51 mg/dL [facility] Specimen Blood Narrative Performed At Triglyceride Reference Range: [facility] Low Risk <150 [facility] [id number] High Risk 200-499 Very High Risk>=500 Cholesterol Reference Range: Low Risk <200 [id number] High Risk>240 HDL Cholesterol Reference Range: Low Risk >=60 High Risk <40 LDL Cholesterol Reference Range: Optimal<100 Near Audjlbp265-907 [id number] Very High >=190 Performing Organization Address City/State/Zipcode Phone Number [facility] [address] [place] [address] [facility] * CT brain/stroke test design (03/27/2018 9:19 PM [facility]) Narrative Performed At FINAL REPORT [facility] CT Head without contrast CLINICAL HISTORY: Stroke, [...] MD Report Verified Date/Time:03/27/2018 21:33:33 Reading Location: [address] Transitional Reading Room Procedure Note Interface, External Ris In - 03/27/2018 9:35 PM [facility] FINAL REPORT CT Head without contrast CLINICAL [...] Report Verified Date/Time: 03/27/2018 21:33:33 Reading Location: [address] Transitional Reading Room Performing Organization Address City/State/Zipcode Phone Number GE RIS after 05/03/2017 Insurance Payer Benefit Subscriber ID Type Phone Address Plan / Group [facility] x[facility]xx MEDICARE ADV Advance Directives For more information, please contact: [facility] [address] [place] [address] Date Inactivated Comments Code Status [...]
--- NOTE | 2018-05-04 14:15 | NUR ---
blood pressure prior to transfer was 99/54. informed er md, was ordered to discontinue nitro patch. receiving nurse informed of change.
[2018-05-04 14:30] VITALS: BP 124/58
[2018-05-04 15:00] VITALS: BP 127/57
[2018-05-04 15:59] VITALS: BP 124/58
[2018-05-04] MEDS: INSULIN REGULAR, HUMAN 100 UNIT/1 ML 3ML VIAL SQ SCH ×2 (17:02→20:55)
[2018-05-04] MEDS ORDERED: FLUTICASONE PROPIONATE NASAL SPRAY NS PRN (18:15)
[2018-05-04] MEDS ORDERED: TRAMADOL HCL 50 MG TAB PO PRN (18:15)
[2018-05-04 20:40] VITALS: BP 144/65
[2018-05-04] MEDS: METOCLOPRAMIDE HCL 10 MG TAB PO SCH (20:54)
[2018-05-04] MEDS ORDERED: SIMVASTATIN 20 MG TAB PO SCH (21:00)
[2018-05-04 21:21] LABS: CREATINE KINASE MB 3.3 ng/mL (0-5.0)
[2018-05-04 22:06] VITALS: BP 144/65
[2018-05-05 01:24] VITALS: BP 105/49
--- NOTE | 2018-05-05 02:06 | History and Physical ---
PRIMARY CARE DOCTOR: Dr. Reynaldo Collins. HOSPITAL PHYSICIAN: Dr. Kenneth Javier. HISTORY OF PRESENT ILLNESS: Ms. Romero is a pleasant [id number]-female with chest pain. The patient with difficult history as she usually allows her family members to manage her care. The patient presented with chest pain to [facility]. The onset x1 day. It was present for few hours. It was described as sharp. It was located in the central chest area. No radiation. Severity was extensive, 8/10 rated. It did get better by the time she came to the emergency room and became 3/10. No known eliciting factors and no known factors that allowed it to improve. She comes to the emergency room. There is some kind of history where she may have coronary artery disease and was awaiting CABG. However, they were going do her legs first because she has peripheral vascular disease and she had a possible lesion that they needed to open up first. The patient also states she recently had her carotids checked and she thinks there was something there on her carotids. PAST MEDICAL HISTORY: Hypertension, diabetes, coronary artery disease, appendectomy, bilateral iliac stent placement, cataract surgery. MEDICATIONS: Medications list reviewed per the chart record. ALLERGIES: NO KNOWN DRUG ALLERGIES. SOCIAL HISTORY: No drugs, no alcohol, no smoking. She is mostly independent functioning. FAMILY HISTORY: Noncontributory to this. REVIEW OF SYSTEMS: GENERAL: No weight changes. OPHTHALMOLOGIC: No double vision. ENT: No mouth ulcers. ENDOCRINE: No thyroid disease known. PULMONARY: No asthma. CARDIAC: No recent heart attacks. GI: No constipation. : No blood in the urine. MUSCULOSKELETAL: arthritis. DERMATOLOGIC: No rashes. NEUROLOGIC: No seizures. OBJECTIVE: VITAL SIGNS: Afebrile, vital signs noted per the examiner record. GENERAL: No acute distress, alert and calm in bed. HEENT: Normocephalic, atraumatic. NECK: Supple. Throat midline. LUNGS: Bilateral air entry, clear. CARDIOVASCULAR: S1 and S2. No murmurs, rubs, or gallops. I do not hear any definite carotid bruits either. ABDOMEN: Soft and nontender. EXTREMITIES: No clubbing, no cyanosis, no edema. INTEGUMENT: No rash. No purpura. LABORATORY DATA: Potassium 3.6, creatinine 1.38. White count 7, hematocrit 39, platelets 258. IMPRESSION: 1. Atypical chest pain, not otherwise specified. Possible acute coronary syndrome. 2. Known coronary artery disease, possibly awaiting future coronary artery bypass grafting. 3. Peripheral vascular disease, status post iliac stent and possibly new carotid stent and possibly new lower leg blockages that reportedly was the recent intervention. 4. Hypertension. 5. Diabetes. 6. Congestive heart failure. 7. Cerebrovascular accident. 8. Hyperlipidemia. At this time, continue followup cardiac enzymes and EKG. Cardiology consult. If she rules out, then consideration may need to go towards medical records as the patient has already had quite an extensive workup. short-term, but we will assess how the patient is tomorrow. Thank you very much, Dr. Reynaldo Collins, for allowing Dr. Javier and I had the chance to participate in the care of Ms. Romero. Please do not hesitate to call for questions. MD GRANT Tineo/RASHEEDA /[id number]
[2018-05-05 05:33] LABS: CREATINE KINASE MB 1.1 ng/mL (0-5.0)
[2018-05-05 05:58] VITALS: BP 115/53
--- NOTE | 2018-05-05 07:03 | NUR ---
received pt lying in bed with eyes closed, Resp even and unlabored. call light within reach, bed in lowest and locked position.
[2018-05-05] MEDS ORDERED: FAMOTIDINE 20 MG TAB PO SCH (07:30)
[2018-05-05] MEDS ORDERED: NPH, HUMAN INSULIN ISOPHANE 100 UNIT/1 ML 3ML VIAL SQ SCH ×2 (07:30→16:30)
[2018-05-05] MEDS ORDERED: INSULIN LISPRO 100 UNIT/1 ML 3ML VIAL SQ SCH ×3 (07:30→16:30)
[2018-05-05 07:42] VITALS: BP 153/69
[2018-05-05] MEDS: METOCLOPRAMIDE HCL 10 MG TAB PO SCH ×2 (08:24→12:21)
[2018-05-05 08:27] VITALS: BP 153/69
[2018-05-05 08:44] LABS: ANION GAP 11.7 mmol/L (8-16); CALCIUM 8.9 mg/dL (8.4-10.2); CREATININE, SERUM 1.25 mg/dL (0.57-1.11); POTASSIUM 3.7 mmol/L (3.5-5.1)
[2018-05-05] MEDS: INSULIN REGULAR, HUMAN 100 UNIT/1 ML 3ML VIAL SQ SCH ×2 (08:49→11:30)
[2018-05-05] MEDS ORDERED: ASPIRIN 81 MG CHEW TAB PO SCH (09:00)
[2018-05-05] MEDS ORDERED: AMLODIPINE BESYLATE 10 MG TAB PO SCH (09:00)
[2018-05-05] MEDS ORDERED: CLOPIDOGREL BISULFATE 75 MG TAB PO SCH (09:00)
[2018-05-05] MEDS ORDERED: ATENOLOL 50 MG TAB PO SCH (09:00)
[2018-05-05] MEDS ORDERED: ASPIRIN 81 MG ENTERIC COATED PO SCH (09:00)
[2018-05-05] MEDS ORDERED: POTASSIUM CHLORIDE 10MEQ EA PO SCH (09:00)
--- NOTE | 2018-05-05 11:40 | NUR ---
CM LEFT MESSAGE WITH DR. WATTS REGARDING PATIENT LOC STATUS. PENDING RETURN CALL FOR ORDERS.
[2018-05-05 12:16] VITALS: BP 131/60
[2018-05-05 12:19] VITALS: BP 147/63
[2018-05-05] MEDS ORDERED: HUMULIN N100 UNITS/ SQ (13:41)
--- NOTE | 2018-05-05 14:00 | NUR ---
patient verbalized wanting to d/c soon "before it gets late because my daughter needs to pick me up." explained to pt awaiting return call from in regards to pending consult and per patient attending MD has already explained to her to f/u with her nitrating acid mixer. patient reports her nitrating acid mixer is in [place] and she will call him to f/u.
--- NOTE | 2018-05-05 14:15 | NUR ---
spoke to and states he has not seen patient however if patient wants to d/c it will be without cardiology clearance as he has not seen her. d/c order from attending in place and patient to d/c home with instructions to f/u with cardiology outpatient. patient made aware and agrees to f/u with cardiology.
--- NOTE | 2018-05-05 15:35 | NUR ---
PIV removed with tip intact, clean dry dressing in place. denies pain. d/c instructions, and all personal belongings in hand at time of d/c. escorted via WC to front lobby exit where daughter awaited in private auto. safely transferred into auto.
--- NOTE | 2018-05-05 23:31 | Discharge Summary ---
PRIMARY CARE DOCTOR: Dr. Reynaldo Collins at [facility]. HOSPITAL PHYSICIAN: Dr. Kenneth Javier. PRIMARY DIAGNOSIS: Chest pain, atypical. SECONDARY DIAGNOSES: Include: 1. Known coronary artery disease. 2. Peripheral vascular disease, status post iliac stenting and possibly needing carotid workup and recent interventions for lower legs. 3. Hypertension. 4. Diabetes. 5. Reported congestive heart failure. 6. Cerebrovascular accident history. 7. Hyperlipidemia. HOSPITAL COURSE: Ms. Romero is a pleasant 68-year-old female, who had some chest pains that were not different from what she has had in the last few weeks. The patient is under workup by her cardiovascular doctors at [facility]. The patient is expectant for future carotid evaluation she tells me and then consideration for CABG. The patient came in with pain that went away readily. The patient with cardiac enzymes that were normal. The patient without EKG acute changes. The patient was allowed for outpatient followup on condition that when she is mobilizing, she can definitely go without symptoms. If she is having symptoms, then we can actually expedite her workup for the cardiac and peripheral vascular disease. MEDICATIONS AT DISCHARGE: Medication list per discharge record. ACTIVITY: Do not overwork, cardiac rest. DIET: Cardiac/diabetic diet. TIME SPENT: Greater than 30 minutes in direct care and coordination on this date. MD GRANT Tineo/RASHEEDA /[id number]
== END 2018-05-05 15:31 | disposition home or self-care (01) ==
LOC: ER 11:04 → INTOOBSV 14:05 → ERHOLD 14:05 → MED/SURG2 14:39
PROVIDERS: ADMIT Internal Medicine; ATTEND Internal Medicine
DX: R07.89 Other chest pain (principal); N39.0 Urinary tract infection, site not specified; I25.10 Atherosclerotic heart disease of native coronary artery without angina pectoris; Z86.73 Personal history of transient ischemic attack (TIA), and cerebral infarction without residual deficits; I73.9 Peripheral vascular disease, unspecified; E11.9 Type 2 diabetes mellitus without complications; Z95.820 Peripheral vascular angioplasty status with implants and grafts; I11.0 Hypertensive heart disease with heart failure; I50.9 Heart failure, unspecified; E78.5 Hyperlipidemia, unspecified; Z79.82 Long term (current) use of aspirin; Z79.4 Long term (current) use of insulin
CPT/HCPCS: 36415 ×2; 71045; 80048; 80053; 81001; 82550 ×2; 82553 ×2; 82948 ×2; 83880; 84443; 84484 ×2; 85025; 85610; 85730; 87086; 93005; 99284; G0378 ×2; J0696; J1817; J2405; J8597 ×2